=== PATIENT | female | born 1945 | race Caucasian/White ===

== ENCOUNTER → 2019-09-02 | Outpatient (CLI) | payer MEDICARE ==
[~2019-09-02] MED LIST: E-Z-GAS II EFFERVESCENT PACKET (SODIUM BICARB./CITRIC ACID/SIMETHICONE) As Ordered ONE; E-Z-HD 98% w/w 340GM SUSP BTL As Ordered ONE; E-Z-PAQUE 96% w/w SUSP 176GM BTL As Ordered ONE
--- NOTE | 2019-09-02 18:56 | REP ---
Examination Requested: Esophagram Barium Swallow Reason For Exam/Comment: Dysphasia Esophagram: The procedure was performed CARLOTTA Hill, under the direct supervision of Dr. Ricks. The images were reviewed with Dr. Ricks. A single PA chest x-ray is submitted as a transformer repairer film. The superior mediastinal structures are midline. The heart size is within normal limits. The lungs are clear. Liquid barium and gas producing granules were given in the erect position as well as liquid barium in the prone oblique position, in order to perform a double contrast esophagram examination. Oral and pharyngeal stages of the examination were unremarkable. However tertiary contractions were visualized throughout the exam. Esophageal transport is efficient and there is no esophagitis, stricture, or mucosal ring noted. There is no hiatal hernia noted. Gastroesophageal reflux was not visualized throughout the course of the exam. Impression: 1. Tertiary contractions visualized throughout the exam. 0.8 minutes of fluoroscopy time was utilized for this procedure. Some fluoroscopic images are performed with last image hold technology. These images require no additional radiation. Reviewed by CARLOTTA Keen 09/02/2019 05:39 P Electronically Signed by Cj Ricks MD 09/02/2019 06:48 P
== END ==
LOC: M RAD 08:33
PROVIDERS: ATTEND Internal Medicine Gastroenterology
DX: R13.10 Dysphagia, unspecified (principal)

== ENCOUNTER 2019-11-01 11:54 | Day surgery (SDC) | payer MEDICARE ==
[~2019-11-01] VITALS: Ht 162.6 cm; Wt 113.4 kg
[~2019-11-01 11:54] MED LIST changes: +ATEN50TA2 PO; -E-Z-GAS II EFFERVESCENT PACKET (SODIUM BICARB./CITRIC ACID/SIMETHICONE) As Ordered ONE; -E-Z-HD 98% w/w 340GM SUSP BTL As Ordered ONE; -E-Z-PAQUE 96% w/w SUSP 176GM BTL As Ordered ONE; +GABA600T4 PO; +HYDR-3910 PO; +KLOR20TA42 PO; +LIDOCAINE 2% INJ 100 MG/5 ML SDV (FOR ANES.) As Ordered ONE; +LOSA25TA14 PO; +LOVA20TA2 PO; +MELO15TA28 PO; +METF500T13 PO; +MYRB50TA PO; +NS 1,000 ML IV ONE; +TOLT4CAP3 PO; +propofoL 200 MG/20 ML VIAL As Ordered ONE
[2019-11-01] MEDS ORDERED: MIDAZOLAM INJ 2 MG/2 ML VIAL (J2250) As Ordered ONE (13:55)
[2019-11-01] MEDS ORDERED: fentaNYL 100 MCG/2 ML INJECTION (J3010) As Ordered ONE (13:56)
[2019-11-01] MEDS ORDERED: ACETYLCYSTEINE 20% 30 ML VIAL As Ordered ONE (14:11)
[2019-11-01] MEDS ORDERED: ESMOLOL INJ 100MG/10ML VIAL As Ordered ONE (14:11)
--- NOTE | 2019-11-01 14:18 | ROOR ---
Patient Name: Malinda Rajan Procedure Date: 11/01/2019 1:57 PM Date of : 1945 Age: 74 Room: [facility] Gender: Female Note Status: Finalized Procedure: Upper GI endoscopy Indications: Dysphagia Providers: David HERNANDEZ MD Referring MD: Norma Contreras MD Requesting Provider: Medicines: Fentanyl 100 micrograms IV, Midazolam 2 mg IV, Cetacaine spray, See the Anesthesia note for documentation of the administered medications Complications: No immediate complications. Procedure: Pre-Anesthesia Assessment: - The heart rate, respiratory rate, oxygen saturations, blood pressure, adequacy of pulmonary ventilation, and response to care were monitored throughout the procedure. The Endoscope was introduced through the mouth, and advanced to the second part of duodenum. The upper GI endoscopy was accomplished without difficulty. The patient tolerated the procedure well. Findings: Very small (insignificant) Hiatal Hernia. The examined esophagus was normal. No endoscopic abnormality was evident in the esophagus to explain the patient's complaint of dysphagia. It was decided, however, to proceed with dilation of the entire esophagus. The scope was withdrawn. Dilation was performed with a Rangel dilator with no resistance at 54 Fr. The entire examined stomach was normal. (large volume, compliant) The examined duodenum was normal. Impression: - Normal esophagus. No endoscopic esophageal abnormality to explain patient's dysphagia. Empiric dilation with 54 F Rangel dilator. - Normal stomach. Very small (insignificant) Hiatal Hernia. - Normal examined duodenum. - No specimens collected. Recommendation: - Observe patient's clinical course. - Follow an antireflux regimen. - Return to referring physician as previously scheduled. David Hernandez MD David HERNANDEZ MD 11/01/2019 2:18:07 PM Electronically signed by David HERNANDEZ MD Number of Addenda: 0 Note Initiated On: 11/01/2019 1:57 PM Estimated Blood Loss: Estimated blood loss: none.
[2019-11-01 14:50] VITALS: BP 180/98
== END 2019-11-01 15:05 | disposition home or self-care (01) ==
LOC: M OPP 11:54
PROVIDERS: ATTEND Internal Medicine Gastroenterology
DX: R13.10 Dysphagia, unspecified (principal); I25.2 Old myocardial infarction; E11.9 Type 2 diabetes mellitus without complications; Z79.84 Long term (current) use of oral hypoglycemic drugs; Z79.899 Other long term (current) drug therapy; Z88.0 Allergy status to penicillin; Z88.2 Allergy status to sulfonamides; Z88.8 Allergy status to other drugs, medicaments and biological substances; Z91.040 Latex allergy status
CPT/HCPCS: 43235; 43450; J2250; J3010

== ENCOUNTER → 2021-04-16 | Outpatient (CLI) | payer MEDICARE ==
[~2021-04-16] MED LIST changes: -LIDOCAINE 2% INJ 100 MG/5 ML SDV (FOR ANES.) As Ordered ONE; -NS 1,000 ML IV ONE; -propofoL 200 MG/20 ML VIAL As Ordered ONE
[2021-04-16 12:11] VITALS: BP 145/85
--- NOTE | 2021-04-16 12:36 | REP ---
INDICATION: R STEREO BX/BREAST MASS. COMPARISON: 03/06/2021. TECHNIQUE: ML, MLO and CC views right breast performed following stereotactic biopsy of a spiculated nodule inferomedially in the right breast. FINDINGS: Metallic clip is noted at the site of the spiculated nodule. There is post biopsy hematoma in that region. IMPRESSION: Metallic clip is seen in the region of the spiculated nodule inferomedially in the right breast status post stereotactic biopsy. RECOMMENDATION: Correlate with pathology results. <Electronically signed by Kirt Umanzor > 04/16/21 [id number]
--- NOTE | 2021-04-16 17:20 | REP ---
INDICATION: R STEREO BX/BREAST MASS. COMPARISON: None. TECHNIQUE: This procedure is performed by Aimee Thomas [facility], under the direct supervision of Dr. Umanzor. The risks and benefits of the procedure were explained to the patient and informed consent was obtained both verbally and written. Directly prior to the start of the procedure, a formal timeout was done in the procedure room. The inferior to superior cranial caudal approach was utilized on the prone table. The right breast nodule was localized using mammographic guidance. The skin was prepped and draped in a sterile fashion. Three ml of buffered lidocaine was used as a local anesthetic. FINDINGS: A 12 gauge vacuum assisted mammotome biopsy device was inserted and advanced into the breast, it was then realized that the lesion was too close to the skin surface for a biopsy to be safely done without harming the skin itself. The machine was repositioned into the lateral medial approach, and the right breast nodule was again localized using mammographic guidance. The skin was prepped and draped in a sterile fashion and another 3 mL of buffered lidocaine was used as a local anesthetic. A 12 gauge vacuum assisted mammotome biopsy device was inserted and advanced into the right breast lesion and 8 core biopsy samples were obtained. A shape 3 marker clip was placed at the biopsy site. The patient tolerated the procedure well and there were no immediate complications. After the appropriate amount of monitored convalescence the patient was discharged from the department. IMPRESSION: Stereotactic guided right breast biopsy with micro clip placement. <Electronically signed by Aimee Thomas > 04/16/21 1640 <Electronically signed by Kirt Umanzor > 04/16/21 [id number]
== END ==
LOC: M WHCPRO 06:20
PROVIDERS: ATTEND Obstetrics & Gynecology Obstetrics
DX: C50.911 Malignant neoplasm of unspecified site of right female breast (principal); N63.10 Unspecified lump in the right breast, unspecified quadrant

== ENCOUNTER → 2021-05-31 | Outpatient (CLI) | payer MEDICARE ==
[~2021-05-31] MED LIST changes: -KLOR20TA42 PO; +POTA-141 PO; +PROHANCE 279.3MG/ML 15ML VIAL As Ordered ONE; +PROHANCE 279.3MG/ML 5ML VIAL As Ordered ONE
--- NOTE | 2021-06-01 10:27 | REP ---
INDICATION: INVASIVE DUCTAL CARCINOMA RT BREAST. COMPARISON: Comparison mammography is reviewed from March 06, 2021. Patient underwent stereotactic needle biopsy and marker clip placement mammography on April 16, 2021. TECHNIQUE: Three Becky MRI imaging was performed with a dedicated breast coil. Axial, coronal, and sagittal T1 and T2 weighted scans were obtained with and without fat saturation in the usual fashion. The study includes dynamically acquired post gadolinium-enhanced imaging with image subtraction. Maximum intensity projection and multi planar reformation imaging is included as well. This study is interpreted with the aid of [employer], an FDA approved computer aided detection (CAD) software program, on a dedicated breast MRI workstation. The gadolinium enhancement dose is 20 mL of intravenous ProHance. FINDINGS: There is a mild amount of fibroglandular tissue bilaterally corresponding with the mammographic pattern. There is minimal background parenchymal enhancement. There is no evidence of axillary lymphadenopathy or significant breast cystic change. High-resolution pre and post-contrast T1 and T2 weighted scans show a bilobed small spiculated mass in the inferior aspect of the right breast adjacent to recently placed needle biopsy marker clip corresponding to the mammographically visible and biopsy-proven invasive ductal carcinoma. This measures 1.2 cm in greatest overall dimension. On axial images at this level the question is raised about contour deformity associated with this lesion. No other suspicious morphologic abnormality is seen in the right breast. There is no evidence of axillary lymphadenopathy on either side. No suspicious morphologic abnormality is observed in the left breast. There is a small subcentimeter cyst noted in the liver. IMPRESSION: BI-RADS category 6 bilateral breast MRI findings. Known right breast malignancy. No other suspicious breast MRI abnormality. <Electronically signed by Sami Ricks > 06/01/21 [id number]
== END ==
LOC: M RAD 14:44
PROVIDERS: ATTEND Surgery
DX: C50.911 Malignant neoplasm of unspecified site of right female breast (principal)
CPT/HCPCS: A9576; C8908

== ENCOUNTER → 2021-06-04 | Outpatient (CLI) | payer MEDICARE ==
[~2021-06-04] MED LIST changes: +ANAS1TAB2 PO; +CHLO500TA PO; +DICL20GE TP; +EXEM25TA PO; +LOSA50TA88 PO; +OMEP-218 PO; -PROHANCE 279.3MG/ML 15ML VIAL As Ordered ONE; -PROHANCE 279.3MG/ML 5ML VIAL As Ordered ONE; +ULTR50TA8 PO
--- NOTE | 2021-06-04 15:45 | REP ---
INDICATION: HEMATOMA ASSESS CLIP PLACEMENT. COMPARISON: Comparison mammography is from March 06, 2021 and April 16, 2021. TECHNIQUE: Craniocaudal and mediolateral oblique views of the right breast are obtained. This mammogram was interpreted with the aid of an FDA-approved computer-aided detection system. FINDINGS: The previously noted post biopsy hematoma has resolved. The stereotactically placed needle biopsy marker clip is again noted immediately adjacent to the spiculated lesion in the inferior and medial aspect of the right breast, approximately the 5 o'clock position. No new mammographic abnormality. IMPRESSION: Marker clip in good position. Previously noted hematoma has resolved. <Electronically signed by Sami Ricks > 06/04/21 [id number]
--- NOTE | 2021-06-04 16:19 | REP ---
INDICATION: HEMATOMA RIGHT BREAST ASSESS CLIP PLACMENT ENLARGED LYMPHNOD COMPARISON: None TECHNIQUE: Realtime grayscale ultrasound examination using curved array transducer. FINDINGS: Directed ultrasound examination of the right axilla demonstrates multiple lymph nodes measuring up to 4.3 x 1.0 x 1.7 cm. No discrete fluid collection/abscess or mass otherwise identified. IMPRESSION: Adenopathy. <Electronically signed by Pedro Dixon > 06/04/21 [id number]
== END ==
LOC: M WHC 14:51
PROVIDERS: ATTEND Surgery
DX: R59.0 Localized enlarged lymph nodes (principal); Z97.8 Presence of other specified devices; T14.8XXA Other injury of unspecified body region, initial encounter
CPT/HCPCS: 76882; 77065; G0279

== ENCOUNTER → 2021-07-06 | Outpatient (CLI) | payer MEDICARE ==
[~2021-07-06] MED LIST changes: -ANAS1TAB2 PO; -DICL20GE TP; -EXEM25TA PO; -LOSA50TA88 PO; -OMEP-218 PO; -ULTR50TA8 PO
== END ==
LOC: M LABSMTC 09:20
PROVIDERS: ATTEND Anesthesiology
DX: Z01.812 Encounter for preprocedural laboratory examination (principal); Z20.822 Contact with and (suspected) exposure to COVID-19

== ENCOUNTER 2021-07-11 06:35 | Day surgery (SDC) | payer MEDICARE ==
[~2021-07-11] VITALS: Ht 165.1 cm; Wt 104.5 kg
--- OUTSIDE RECORDS SUMMARY | 2021-07-11 06:42 | CCD ---
Author Author [facility] Organization [facility] Address Unknown Phone Unavailable Care Team Providers Care Transformer Maker Name Role Phone Jennifer Dang Unavailable PROBLEMS Type Condition ICD9-CM Code ZLS91-GZ Code Onset Dates Condition S tatus W/U Status Risk SNOMED Code Notes Problem Invasive ductal carcinoma of right breast C50.911 Active confirmed 852859844 Problem Malignant neoplasm of right female breast, unspecified estrogen receptor status, unspecified site of breast C50.911 Active confirmed [id number] Problem Infiltrating ductal carcinoma of right breast C50. 911 Active confirmed [id number] ALLERGIES Allergen (clinical drug ingredient) Drug/Non Drug Allergy do cumented on EMR Reaction Allergy Type Onset Date Status Sulfasalazine Sulfa Antibiotics HEADACHE Drug Allergy Ac tive Latex Latex REDNESS Drug Allergy Active Penicillin (For Allergies Use Only) CHILDHOOD Drug Allerg y Active nitroglycerin Nitroglycerin([facility] Code:[address]-93) Nausea/Vom iting Drug Allergy Active ENCOUNTERS from 1945 to 2021-07-04 Encounter Location Date Provider Diagnosis [facility] [address] [place] [address] [place] [address] Jul, Jennifer Dang IMMUNIZATIONS No Information SOCIAL HISTORY Sex Assigned At : Social History Observation Description Sex Assigned At Unknown REASON FOR REFERRAL No Information VITAL SIGNS No information MEDICATIONS Medication SIG (Take, Route, Frequency, Duration) Notes Start Da te End Date Status atenolol 100 100mg as directed oral Active Losartan Potassium-HCTZ 50-12.5 MG 1 tablet Orally Once a day Active Metformin as directed Active Lovastatin 1 tablet with a meal Orally Once a day for 30 day(s) Active Meloxicam 15 MG 1 tablet Orally Once a day Active Lidocaine-Prilocaine 2.5-2.5 % apply entire tube to ri ght nipple 2 hours prior to coming to hospital for surgery. Cover with plastic Externally once for 1 day May, Active Klor-Con 20 MEQ 1 packet with food Orally Once a day Active Black Cohosh as directed Orally Not- Taking NIFEdipine 1 capsule Orally Three times a day for 30 day(s) Not-Taking Acidophilus as directed Orally Not-T aking Myrbetriq 50 MG 1 tablet Orally Once a day Active PROCEDURES No Information RESULTS No Results REASON FOR VISIT CARDIAC CLEARANCE MEDICAL (GENERAL) HISTORY Type Description Date Medical History Hx of heart attack in 2000 Medical History Hx of stroke in 1999 and 2000 Medical History Chronic back and leg pain Medical History HTN Medical History DM BORDERLINE Medical History GERD Medical History Arthritis Surgical History BACK SURGERY Surgical History cataract removal Surgical History hysterectomy, unilateral oophorectomy Surgical History shoulder surgery - torn rotator cuff Surgical History breast reduction 1982 Hospitalization History SURGERY RELATED Hospitalization History STROKE 2001 Goals Section No Information Health Concerns No Information MEDICAL EQUIPMENT No Information MENTAL STATUS No Information FUNCTIONAL STATUS No Information ASSESSMENTS No Information PLAN OF TREATMENT Medication Medication Name Sig Start Date Stop Date Lidocaine-Prilocaine 2.5-2.5 % apply entire tube to ri ght nipple 2 hours prior to coming to hospital for surgery. Cover with plastic Externally once for 1 day May, Next Appt Details Provider Name:Jennifer Dang, 21-07-11 10:00:00 AM, [address] [place] [place] [phone], [place], [address] Provider Name:Jennifer Dang, 21-07-19 03:00:00 PM, [address] [place] [address] , [place], [address], Provider Name:Jennifer Dang, 20-08-13 10:00:00 AM, [address] [place] [address] , [place], [address], Insurance Providers Payer Name Payer Address Payer Phone Insured Name Patient Relati onship to Insured Coverage Start Date Coverage End Date [employer] OPTIONS [facility] CLAIM [facility] [address] [facility] [phone] MICHELLE LUCIO MEDICARE Part A and B [address] [facility] [phone] MICHELLE LUCIO self
--- OUTSIDE RECORDS SUMMARY | 2021-07-11 06:42 | CCD ---
Author Author [facility] Organization [facility] Address Unknown Phone Unavailable Care Team Providers Care Head Baggage Porter Name Role Phone Jennifer Dang Unavailable PROBLEMS Type Condition ICD9-CM Code EIT95-IE Code Onset Dates Condition S tatus W/U Status Risk SNOMED Code Notes Problem Invasive ductal carcinoma of right breast C50.911 Active confirmed [id number] Problem Malignant neoplasm of right female breast, unspecified estrogen receptor status, unspecified site of breast C50.911 Active confirmed [id number] Problem Infiltrating ductal carcinoma of right breast C50. 911 Active confirmed 852801502 ALLERGIES Allergen (clinical drug ingredient) Drug/Non Drug Allergy do cumented on EMR Reaction Allergy Type Onset Date Status Sulfa (for allergy use only) HEADACHE Non Drug Allergy Active nitroglycerin Nitroglycerin([facility] Code:[address]-05) Nausea/Vom iting Drug Allergy Active Penicillin (For Allergies Use Only) CHILDHOOD Drug Allerg y Active Latex (for allergy use only) REDNESS Non Drug Allergy Active ENCOUNTERS from 1945 to 2021-06-07 Encounter Location Date Provider Diagnosis [facility] [address] [place] [address] [place] [address] May, Jennifer Dang IMMUNIZATIONS No Information SOCIAL HISTORY [...] Information RESULTS No Results REASON FOR VISIT 06/25/21 SURG AUTH MEDICAL (GENERAL) HISTORY Type Description Date Medical [...] May, Next Appt Details Provider Name:Jennifer Dang, 20-06-26 10:00:00 AM, [address] [place] [address] [place], [address] Provider Name:Jennifer Dang, 21-07-10 09:00:00 AM, [address] [place] [phone], [place], [address], Insurance Providers Payer Name Payer Address Payer Phone Insured Name Patient Relati onship to Insured Coverage Start Date Coverage End Date [facility] OPTIONS [facility] CLAIM [facility] [address] [facility] [id number] MICHELLE LUCIO MEDICARE Part A and B [address] [facility] [phone] MICHELLE LUCIO self
--- OUTSIDE RECORDS SUMMARY | 2021-07-11 06:42 | CCD ---
Author Author [facility] Organization [facility] Address Unknown Phone Unavailable Care Team Providers Care Bottle Booth Attendant Name Role Phone MiltonMargarette sherwoodieszka Unavailable PROBLEMS Type Condition ICD9-CM Code CGX62-VQ Code Onset Dates Condition S tatus W/U Status Risk SNOMED Code Notes Problem Infiltrating ductal carcinoma of right breast C50. 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 confirmed 431717906 ALLERGIES Allergen (clinical drug ingredient) Drug/Non Drug Allergy do cumented on EMR Reaction Allergy Type Onset Date Status Sulfa (for allergy use only) HEADACHE Non Drug Allergy Active nitroglycerin Nitroglycerin([facility] Code:[address]-84) Nausea/Vom iting Drug Allergy Active Penicillin (For Allergies Use Only) CHILDHOOD Drug Allerg y Active Latex (for allergy use only) REDNESS Non Drug Allergy Active ENCOUNTERS from 1945 to 2021-06-06 Encounter Location Date Provider Diagnosis [facility] [address] [place] [address] [place] [address] May, Jennifer Dang Invasive ductal carcinoma of right breast C50.911 ; Hematoma T14.8XXA ; Enlarged lymph node R59.9 ; Family history of cancer Z80.9 ; Genetic testing Z13.79 and History of bilateral breast reduction surgery Z98.890 IMMUNIZATIONS No Information SOCIAL HISTORY Sex Assigned At : Social History Observation Description Sex Assigned At Unknown REASON FOR REFERRAL from 1945 to 2021-06-06 Reason New diagnosis of right breas t IDC, grade 2/DCIS grade 2, ER 90%, FL 80%, HER2 negative. Please evaluate for adjuvant treatment. Diagnosis 1 Invasive ductal carcinoma of right breast (C50.911) Referral Organization [facility] Referring Provider First Name [facility] Referring Provider Last Name [facility] Referring Provider Specialty Surgery Referred Provider Alejandrina Mancilla [place] Referred Provider Specialty Oncology Referral Priority Routine General Notes Allyn Cruz 05/23/2021 07:38:02 AM >REFERRAL FAXED Reason New diagnosis of right breas t IDC. Please evaluate for adjuvant treatment. Diagnosis 1 Invasive ductal carcinoma of right breast (C50.911) Referral Organization [facility] Referring Provider First Name [facility] Referring Provider Last Name [facility] Referring Provider Specialty Surgery Referred Provider Alex Leavitt Referred Provider Specialty Radiation Oncology Referral Priority Routine General Notes Allyn Cruz 05/23/2021 07:38:28 AM >REFERRAL FAXED VITAL SIGNS Weight 230 lbs May, Weight-kg 104.33 kg May, Height 5'6" in May, BMI 37.12 kg/m2 May, Heart Rate 52 /min May, Respiratory Rate 18 /min May, Temperature 97.2 degrees Fahrenheit May, Oximetry 95 May, Blood pressure systolic 150 mm Hg May, Blood pressure diastolic 86 mm Hg May, MEDICATIONS Medication SIG (Take, Route, Frequency, Duration) Notes Start Da te End Date Status atenolol 100 100mg as directed oral Active Lovastatin 1 tablet with a meal Orally Once a day for 30 day(s) Active Metformin as directed Active Myrbetriq 50 MG 1 tablet Orally Once a day Active Meloxicam 15 MG 1 tablet Orally Once a day Active Losartan Potassium-HCTZ 50-12.5 MG 1 tablet Orally Once a day Active Black Cohosh as directed Orally Not- Taking NIFEdipine 1 capsule Orally Three times a day for 30 day(s) Not-Taking Acidophilus as directed Orally Not-T aking Klor-Con 20 MEQ 1 packet with food Orally Once a day Active PROCEDURES No Information RESULTS Component Value Reference Range WWBC EXTREMITY NON VASC LIMITED Reviewed date:06/05/2021 17:53:21 Interpretation:AD Performing Lab:Replaced By [facility],[address]], ,[place] [address] Breast Bilat with and w/o Cont PLZ or SM C Reviewed date:06/05/2021 17:53:29 Interpretation:AD Performing Lab:Replaced By [facility],[address]], ,[place] [address] REASON FOR VISIT RIGHT Breast IDC MEDICAL (GENERAL) HISTORY Type Description Date Medical History Hx of heart attack in 2000 Medical History Hx of stroke in 1999 and 2000 Medical History Chronic back and leg pain Medical History HTN Medical History DM BORDERLINE Medical History GERD Medical History Arthritis Surgical History BACK SURGERY Surgical History cataract removal Surgical History hysterectomy, unilateral oophorectomy 19 75 Surgical History shoulder surgery - torn rotator cuff Surgical History breast reduction 1982 Hospitalization History SURGERY RELATED Hospitalization History STROKE 2001 Goals Section No Information Health Concerns No Information MEDICAL EQUIPMENT No Information MENTAL STATUS No Information FUNCTIONAL STATUS No Information ASSESSMENTS Encounter Date Diagnosis Assessment Notes Treatment Notes Treatm ent Clinical Notes May, Invasive ductal carcinoma of right breast (ICD-1 0 - C50.911) RIGHT BREAST CANCER (4:00 6 CFN) hematoma in place IDC GRADE 2 DCIS GRADE 2 ER 90% FL 80% HER2 negative cT1c (1.1 cm) cN0? (possibly reactive since large hematoma) cM0 ANATOMICAL STAGE 1 CLINICAL PROGNOSTIC STAGE: 1 GENETICS: declined PLAN: 1. Will get repeat Right diagnostic mammogram to asses if clip was displaced with postbx hematoma and get ultrasound of right axilla to assess palpable/ possibly reactive LN on 06/04 at 3PM 2. Will obtain MRI breast to delineate extent of disease. BMP will be orders to assess kidney function 3. Will defer surgical procedure planning until MRI results are available 4. Preop testing/ medical clearance will need to be obtained prior to surgery 5. Genetic testing, declined today, patient will let us know if wants to pursue it at later time 6. Oncotype DX postop if invasive cancer meets testing criteria and no NAC done 7. Referral to Medical Oncology 8. Referral to Radiation Oncology I reviewed the breast imaging and pathology results with Ms. Lucio and her family (daughter). We have reviewed the overall breast cancer evaluation and staging. Based on the current information Ms. Lucio was found to have right breast cancer - INVASIVE DUCTAL CARCINOMA, GRADE 2, ER 90% FL 80% and HER-2 negative. Her tumor measures on imaging about 1.1 cm which puts it in category T1c. It is hard to assess if the clip is in correct location as there was postbx large hematoma measuring 6 cm. We need to repeat R dx mammogram with EZEQUIEL to assess position of the clip. She does have one palpable axillary lymph node on exam, however, since patient had large hematoma post bx and since the cortex of the lymph node is only mildly enlarged at 3.2 cm, it is likely this is a reactive node. This node is also tender on palpation. I am planning to assess this lymph node with formal sonography of right axilla and MRI which will be ordered to delineate extent of disease. I have discussed various component of multidisciplinary approach to breast cancer which includes local treatments with surgery and radiation therapy and systemic treatments with antihormonal pill and possible chemotherapy. Regarding surgical component of the treatment, patient is a candidate for both breast conserving surgery and for mastectomy. I explained to her that, surgery carries risks and potential complications, most common of which are risk of bleeding, infection and injury to surrounding structures like skin, nipple, muscle, lung, nerves especially long thoracic nerve and thoracodorsal nerve. Postsurgical complications may include, but are not limited to, numbness of the skin and or nipple, scarring, bruising, hematomas, seromas, flap and/or nipple necrosis, lymphedema, nerve injury causing weakness in motor function of upper extremity or scapula, contour deformity, poor cosmetic outcomes and need for additional surgeries. Those risks were explained to the patient and she expressed understanding. We have discussed that with breast conserving surgery there is a higher risk of locoregional recurrence of tumor because there is more [place] breast tissue left behind. The percentage of locoregional recurrence is lower with mastectomy than with breast conserving surgery but it is not zero as it is impossible to remove 100% of all breast tissue cells during mastectomy. There is also 10-20% chance of positive margins with breast conserving surgery which will warrant additional surgery to clear those margins. I also explained that with breast conserving surgery she may need to have radiation therapy in order to assure equal survival between the breast conservative treatment and mastectomy. Radiation therapy after mastectomy will be warranted only if the final mastectomy margins are positive or if lymph nodes are positive. We have also discussed that if she chooses mastectomy, she is entitled to reconstruction if she wishes to have it. Reconstruction options will be discussed in details with plastic surgeon. I have explained to the patient that reconstruction is considered part of breast cancer treatment and is covered by insurance. I explained that in cases of invasive cancer, we pursue sentinel lymph node biopsy in fit patients in addition to removal of the tumor from the breast. I explained that this is done to test the very first lymph nodes draining the breast for presence of cancer. This will be done with radionucleotide injection and possibly with blue dye tracer. If the lymph nodes contain cancer, depending on what surgery was performed and how many lymph nodes are positive, additional surgery and/ or radiation therapy to axilla may be warranted as well. I informed patient about the Choosing Wisely Campaign which gives her an option, due to her age, not to pursue sentinel lymph node biopsy. We need to evaluate the palpable lymph node nature - this will likely be reactive since patient had large hematoma post bx. I am leaning toward pursuing SLNBx in this patient because of this palpable lymph node. I will send a prescription for the EMLA cream if needed at later time when evaluation is completed and we decide what to do with the right axilla. Regarding evaluation of contralateral breast, she had a screening mammogram done on 03/06/2021. This did not show any suspicious lesions in the contralateral breast. We are planning for MRI of the breast to delineate extent of disease. This will also evaluate contralateral breast. Since patient was diagnosed with breast cancer, she qualifies for genetic testing. I provided the genetic testing counseling -see the note below. At this time declined genetic testing. She will let me know if she changes her mind. I discussed with the patient and her family that Oncotype Dx is used to predict the probability of Hormone (+) Her2(-) cancer coming back. I explained that if the test comes back with a high score, chemotherapy may be considered. We will likely plan for Oncotype Dx postop. I will place referral for Medical Oncology. This appointment can be scheduled after surgery. I explained to the patient that she may need to follow up with radiation oncology if she wants to pursue breast conserving surgery or if lymph nodes or mastectomy margins are positive. I will place this referral as patient is leaning toward [facility]. She can schedule appointment with [facility] after surgery. Finally, I informed patient that an appointment with her primary care doctor will be scheduled for her before the surgery as we will need a surgical clearance, latest labs and imaging (CBC, BMP, CXR,EKG). All questions were answered. Patient and her family agree with the plan May, Hematoma (ICD-10 - T14.8XXA) Patient's post biopsy mammogram showed a 6cm hematoma. I would like to get a follow up right breast mammogram to assess the clip placement and hematoma May, Enlarged lymph node (ICD-10 - R59.9) On my clinical exam, there was a small palpable lymph node. This is likely a reactive lymph node due to large hematoma. It is also tender on palpation. I would like to get a formal ultrasound of the axilla to further evaluate. She can have this done at the same time as her mammogram on 06/04. All questions were answered, patient agrees with the plan May, Family history of cancer (ICD-10 - Z80.9) Patient participated in our Cancer screening program and she was not found to be at increased risk for cancer based on her family history. She does not qualify for genetic testing or high risk screening with MRI of the breast based on her family history. She IS eligible due to her diagnosis of right breast cancer May, Genetic testing (ICD-10 - Z13.79) Patient participated in our cancer screening program and she was identified as a person who may be eligible for genetic testing due to her diagnosis of right breast cancer. Possible outcomes of genetic testing were discussed with patient with emphasis on the fact that the majority of cancers are not related to germline mutations but are rather due to somatic mutations. I have explained that the genetic testing can come back as positive for specific pathological gene mutation, as negative, or as variant of unknown significance (VUS) which means that there is duration in the gene however we do not have enough information to determine the significance importance of this ulceration. I explained to the patient that we do not asked on VUS and treat them as negative until they are reclassified as pathologically significant mutation or benign alteration. We have discussed that regardless of test outcome patient cannot have her health insurance denied in the future. Patient declined genetic testing today. She would like to think about this at this time and will let us know what she decides at a later time May, History of bilateral breast reduction surgery (I CD-10 - Z98.890) Patient had a bilateral breast reduction in 1982. Thinks she went from 38D to a C May, Other Time spent face to face with the patient with over 50 % of time spent counseling the patient : 98 min (1 h 38min) Time spent reviewing the chart, requested consult information, radiology reports and imagin min TOTAL TIME SPENT FOR CARE OF THIS PATIENT AT THIS ENCOUNTER: 118 min I, Dr. Dang, reviewed the medical note prepared by the scribe and confirm the findings and the discussed plan. PLAN OF TREATMENT Treatment Notes Assessment Notes Clinical Notes Invasive ductal carcinoma of right breast RIGHT BREAST CANCER (4:00 6 CFN) hematoma in placeIDC GRADE 2 DCIS GRADE 2ER 90% FL 80% HER2 [id number] (1.1 cm) cN0? (possibly reactive since large hematoma) [id number] STAGE 1CLINICAL PROGNOSTIC STAGE: 1GENETICS: declinedPLAN:1. Will get repeat Right diagnostic mammogram to asses if clip was displaced with postbx hematoma and get ultrasound of right axilla to assess palpable/ possibly reactive LN on 06/04 at 3PM2. Will obtain MRI breast to delineate extent of disease. BMP will be orders to assess kidney function3. Will defer surgical procedure planning until MRI results are available4. Preop testing/ medical clearance will need to be obtained prior to surgery5. Genetic testing, declined today, patient will let us know if wants to pursue it at later time6. Oncotype DX postop if invasive cancer meets testing criteria and no NAC done7. Referral to Medical Oncology8. Referral to Radiation OncologyI reviewed the breast imaging and pathology results with Ms. Lucio and her family (daughter).We have reviewed the overall breast cancer evaluation and staging.Based on the current information Ms. Lucio was found to have right breast cancer - INVASIVE DUCTAL CARCINOMA, GRADE 2, ER 90% FL 80% and HER-2 negative. Her tumor measures on imaging about 1.1 cm which puts it in category T1c. It is hard to assess if the clip is in correct location as there was postbx large hematoma measuring 6 cm. We need to repeat R dx mammogram with EZEQUIEL to assess position of the clip.She does have one palpable axillary lymph node on exam, however, since patient had large hematoma post bx and since the cortex of the lymph node is only mildly enlarged at 3.2 cm, it is likely this is a reactive node. This node is also tender on palpation. I am planning to assess this lymph node with formal sonography of right axilla and MRI which will be ordered to delineate extent of disease.I have discussed various component of multidisciplinary approach to breast cancer which includes local treatments with surgery and radiation therapy and systemic treatments with antihormonal pill and possible chemotherapy.Regarding surgical component of the treatment, patient is a candidate for both breast conserving surgery and for mastectomy.I explained to her that, surgery carries risks and potential complications, most common of which are risk of bleeding, infection and injury to surrounding structures like skin, nipple, muscle, lung, nerves especially long thoracic nerve and thoracodorsal nerve. Postsurgical complications may include, but are not limited to, numbness of the skin and or nipple, scarring, bruising, hematomas, seromas, flap and/or nipple necrosis, lymphedema, nerve injury causing weakness in motor function of upper extremity or scapula, contour deformity, poor cosmetic outcomes and need for additional surgeries. Those risks were explained to the patient and she expressed understanding.We have discussed that with breast conserving surgery there is a higher risk of locoregional recurrence of tumor because there is more [place] breast tissue left behind. The percentage of locoregional recurrence is lower with mastectomy than with breast conserving surgery but it is not zero as it is impossible to remove 100% of all breast tissue cells during mastectomy. There is also 10-20% chance of positive margins with breast conserving surgery which will warrant additional surgery to clear those margins. I also explained that with breast conserving surgery she may need to have radiation therapy in order to assure equal survival between the breast conservative treatment and mastectomy. Radiation therapy after mastectomy will be warranted only if the final mastectomy margins are positive or if lymph nodes are positive.We have also discussed that if she chooses mastectomy, she is entitled to reconstruction if she wishes to have it. Reconstruction options will be discussed in details with plastic surgeon. I have explained to the patient that reconstruction is considered part of breast cancer treatment and is covered by insurance.I explained that in cases of invasive cancer, we pursue sentinel lymph node biopsy in fit patients in addition to removal of the tumor from the breast. I explained that this is done to test the very first lymph nodes draining the breast for presence of cancer. This will be done with radionucleotide injection and possibly with blue dye tracer. If the lymph nodes contain cancer, depending on what surgery was performed and how many lymph nodes are positive, additional surgery and/ or radiation therapy to axilla may be warranted as well. I informed patient about the Choosing Wisely Campaign which gives her an option, due to her age, not to pursue sentinel lymph node biopsy.We need to evaluate the palpable lymph node nature - this will likely be reactive since patient had large hematoma post bx. I am leaning toward pursuing SLNBx in this patient because of this palpable lymph node.I will send a prescription for the EMLA cream if needed at later time when evaluation is completed and we decid e what to do with the right axilla.Regarding evaluation of contralateral breast, she had a screening mammogram done on 03/06/2021. This did not show any suspicious lesions in the contralateral breast. We are planning for MRI of the breast to delineate extent of disease. This will also evaluate contralateral breast.Since patient was diagnosed with breast cancer, she qualifies for genetic testing. I provided the genetic testing counseling -see the note below. At this time declined genetic testing. She will let me know if she changes her mind.I discussed with the patient and her family that Oncotype Dx is used to predict the probability of Hormone (+) Her2(-) cancer coming back. I explained that if the test comes back with a high score, chemotherapy may be considered. We will likely plan for Oncotype Dx postop.I will place referral for Medical Oncology. This appointment can be scheduled after surgery.I explained to the patient that she may need to follow up with radiation oncology if she wants to pursue breast conserving surgery or if lymph nodes or mastectomy margins are positive. I will place this referral as patient is leaning toward [facility]. She can schedule appointment with [facility] after surgery.Finally, I informed patient that an appointment with her primary care doctor will be scheduled for her before the surgery as we will need a surgical clearance, latest labs and imaging (CBC, BMP, CXR,EKG).All questions were answered. Patient and her family agree with the plan Hematoma Patient's post biopsy mammog sonia showed a 6cm hematoma. I would like to get a follow up right breast mammogram to assess the clip placement and hematoma Enlarged lymph node On my clinical exam, there w as a small palpable lymph node. This is likely a reactive lymph node due to large hematoma. It is also tender on palpation. I would like to get a formal ultrasound of the axilla to further evaluate. She can have this done at the same time as her mammogram on 06/04.All questions were answered, patient agrees with the plan Family history of cancer Patient participated in our Cancer screening program and she was not found to be at increased risk for cancer based on her family history. She does not qualify for genetic testing or high risk screening with MRI of the breast based on her family history.She IS eligible due to her diagnosis of right breast cancer Genetic testing Patient participated in our cancer screening program and she was identified as a person who may be eligible for genetic testing due to her diagnosis of right breast cancer.Possible outcomes of genetic testing were discussed with patient with emphasis on the fact that the majority of cancers are not related to germline mutations but are rather due to somatic mutations.I have explained that the genetic testing can come back as positive for specific pathological gene mutation, as negative, or as variant of unknown significance (VUS) which means that there is duration in the gene however we do not have enough information to determine the significance importance of this ulceration. I explained to the patient that we do not asked on VUS and treat them as negative until they are reclassified as pathologically significant mutation or benign alteration.We have discussed that regardless of test outcome patient cannot have her health insurance denied in the future.Patient declined genetic testing today. She would like to think about this at this time and will let us know what she decides at a later time History of bilateral breast reduction surgery Patient had a bilateral breast reduction in 1982. Thinks she went from 38D to a C Treatment Notes Test Name Order Date [facility] Ezequiel Diagnostic Unilateral (Ultrasound if Indicat ed) (3D Mammo) 2021-05-22 Future Test Test Name Order Date Basic Metabolic Profile (BMP) [id number] Referrals Referral Date Details New diagnosis of right breas t IDC, grade 2/DCIS grade 2, ER 90%, FL 80%, HER2 negative. Please evaluate for adjuvant treatment., Zoya Naik [facility] New diagnosis of right breas t IDC. Please evaluate for adjuvant treatment., Alex Leavitt Insurance Providers Payer Name Payer Address Payer Phone Insured Name Patient Relati onship to Insured Coverage Start Date Coverage End Date MEDICARE Part A and B [address] [facility] [phone] MICHELLE LUCIO [facility] [employer] [facility] CLAIM DIV [address] [facility] [phone] MICHELLE LUCIO self
--- OUTSIDE RECORDS SUMMARY | 2021-07-11 06:42 | CCD | Continuity of Care Document ---
Author Author Malinda WESTFALL MD Organization Unknown Address [address] [place] [address], it e [address] [place] [address] Phone [phone] Care Team Providers Care Green Tire Inspector Name Role Phone Coby Contreras MD AUTM [phone] Problems Active Problems Provider Date Essential hypertension Chepe Alvarez MD Onset: 017 Pure hypercholesterolemia Chepe Alvarez MD Onset: 03/2017 Social History Type Date Description Comments Sex Unknown ETOH Use Occasionally consumes alcohol Tobacco Use Start: Unknown Denies Smoking Smoking Status Reviewed: 05/16/21 Denies Smoking Allergies, Adverse Reactions, Alerts Active Allergies Criticality Reaction | Severity Comments Date sulfa drugs Unable to assess criticality 08/07/2017 Nitroglycerin Unable to assess criticality 08/07/2017 Propofol Unable to assess criticality 09/25/2020 Latex Unable to assess criticality 09/25/2020 Medications Active Medications SIG Qnty Indications Ordering Provide r Date Klor-Con 20Meq Packet Unknown Tylenol Extra Strength 500mg Table ts 1-2 pills 2-3x/d as needed Unknown 0 Lovastatin 20mg Tablets take one tablet by mouth every night at bedtime Unknown Gabapentin 300mg Capsules 1 tab po qhs for one week, then one tab po bid for one week then one tab po tid M75.101 Unknown Losartan Potassium/Hydrochlorothiazide 50-12.5mg Tablets M75.101 Unknown Hydralazine HCL 25mg Tablets M75.101 Unknown Atenolol 50mg Tablets 1 by mouth every day M75.101 Unknown Metformin HCL 500mg Tablets take two tablets by mouth twice a day M75.101 Unknown Cyclobenzaprine HCL 10mg Tablets take one tablet by mouth three times a day as needed M75.101 Unkn own Aspir-[address] 1 by mouth every day M75.101 Unknown Detrol LA 4mg Caps ER 24HR 1 by mouth every day Unknown Myrbetriq 50mg Tablets ER 24HR 1 by mouth every day Unknown Immunizations Description No Information Available Vital Signs Date Vital Result Comment 09/21/2020 1:40pm Body Temperature 96.8 F 07/05/2019 10:12am Body Temperature 96.7 F Height 66.25 inches 5'6.25" Weight 255.00 lb BMI (Body Mass Index) 40.8 kg/m2 Results Description No Information Available Procedures Date Code Description Status 05/16/2021 34383 Office/Outpatient Established Lo w MDM 20-29 Min Completed 05/16/2021 58275 Inject/Drain Joint/Bursa Major C ompleted Medical Devices Description No Information Available Encounters Description No Information Available Assessments Date Code Description Provider 05/16/2021 M75.121 Complete rotator cuf f tear or rupture of right shoulder, not specified as traumatic Nay Westfall MD Plan of Treatment 05/16/2021 - Nay Westfall MD* M75.121 Complete rotator cuff tear or rupture of right shoulder, not specified as traumatic* Follow up:* f/u4-5 months right shoulder recheck Functional Status Description No Information Available Mental Status Description No Information Available Referrals Description No Information Available
--- OUTSIDE RECORDS SUMMARY | 2021-07-11 06:42 | CCD | Continuity of Care Document ---
Author Author Malinda RIOS RN Organization Unknown Address [address] [place] [address] Phone [phone] Care Team Providers Care Prep Manager Name Role Phone Coby Contreras MD AUTM [phone] Jennifer Dang DO AUTM Problems Active Problems Provider Date H/O: cardiovascular disease Onset: 12/13 Valvular endocarditis Onset: 12/13/2013 Essential hypertension Onset: 12/13/2013 Acute myocardial infarction of inferior wall Onset: 12/13/2013 Coronary arteriosclerosis Onset: 013 Peripheral venous insufficiency Karli Rios RN, [employer] [facility] Onset: 10/16/2015 Contact dermatitis Karli Rios RN, [employer] [facility] Onset: 10/16/2015 Hyperlipidemia Karli Rios RN, [employer] [facility] Onset: 10/16/2015 Dyspnea Karli Rios RN, [employer] Onset: 10/16/2015 Mitral valve disorder Karli Rios RN, [employer] Onset: 6 Stricture of esophagus Karli Rios RN, [employer] [facility] Onset: 10/16/19 16 Mixed hyperlipidemia Karli Rios RN, [employer] Onset: 05/20/2016 Electrocardiogram abnormal Karli Rios RN, [employer] Onset: 10/2020 Old myocardial infarction Darren Buckner MD Onset: 016 Dizziness and giddiness Karli Rios RN, [employer] Onset: 017 Carotid artery occlusion [facility] Onset: 05/21/20 17 Type 2 diabetes mellitus [facility] Onset: 06/03/20 18 Social History Type Date Description Comments Sex Unknown ETOH Use Denies alcohol use Tobacco Use Start: Unknown Patient has never smoked Recreational Drug Use Denies Drug Use Allergies and adverse reactions Active Allergies Criticality Reaction | Severity Comments Date Sulfa Unable to assess criticality 12/03/2012 Penicillin Unable to assess criticality 12/03/2012 Latex Unable to assess criticality 12/03/2012 Nitro Unable to assess criticality 12/03/2012 Medications Active Medications SIG Qnty Indications Ordering Provide r Date Atenolol 50mg Tablets q.d. Unknown 05/20/2015 Hydralazine HCL 25mg Tablets one tablet twice a day Unknown 05/20/2015 Lovastatin 20mg Tablets q.d. Unknown 05/20/2015 Aspirin Childrens 81mg Chewtabs 1 by mouth every day Unknown Klor-Con M20 20Meq Tablets ER 1 by mouth every day Unknown Myrbetriq 50mg Tablets ER 24HR 1 by mouth every day Unknown Meloxicam 15mg Tablets 1 by mouth every day Unknown Glucophage 500mg Tablets 1 by mouth every day Unknown Chlorzoxazone 500mg Tablets Take One Tablet By Mouth Three Times A Day as Needed For Muscle Spasms Unknown Bumex 1mg Tablets 1 po angela ly as needed. Unknown Losartan Potassium 50mg Tablets 1 by mouth every day Unknown Immunizations Description No Information Available Vital Signs Date Vital Result Comment 07/02/2021 11:18am BP Systolic 158 mmHg BP Diastolic 100 mmHg Heart Rate 70 /min Height 64 inches 5'4" Weight 220.00 lb BMI (Body Mass Index) 37.8 kg/m2 O2 % BldC Oximetry 96 % 07/13/2018 10:25am BP Systolic 150 mmHg BP Diastolic 98 mmHg Heart Rate 72 /min Height 65 inches 5'5" Weight 245.00 lb BMI (Body Mass Index) 40.8 kg/m2 Results Test Acquired Date Facility Test Result H/L Range Note Order 06/21/2021 [facility] Nuclear Read Only <pending> Procedures Date Code Description Status 07/02/2021 14815 Office/Outpatient Established [facility] MDM 40-54 Min Completed 06/21/2021 02650 Myocardial Perfusion Imaging Tomographic (Spect) Multiple Studies Completed Medical Devices Description No Information Available Encounters Type Date Location Provider Dx Diagnosis Office Visit 07/02/2021 1:45p [facility] Karli Rios RN, [facility] Z01.810 Encounter for preprocedural cardiovascular examination R94.31 Abnormal electrocardiogram [ ECG] [EKG] I10 Essential (primary) hyperten lina E11.9 Type 2 diabetes mellitus wit hout complications I65.23 Occlusion and stenosis of bi lateral carotid arteries I25.10 Athscl heart disease of [place] ve coronary artery w/o ang pctrs I34.0 Nonrheumatic mitral (valve) insufficiency E78.2 Mixed hyperlipidemia I87.2 Venous insufficiency (chroni c) (peripheral) K22.2 Esophageal obstruction Assessments Date Code Description Provider 07/02/2021 Z01.810 Encounter for preprocedural card iovascular examination Karli Rios RN, [facility] 07/02/2021 R94.31 Abnormal electrocardiogram [ECG] [EKG] Karli Rios RN, [facility] 07/02/2021 I10 Essential (primary) hypertension Karli Rios RN, [facility] 07/02/2021 E11.9 Type 2 diabetes mellitus without complications Karli Rios RN, [facility] 07/02/2021 I65.23 Occlusion and stenosis of bilate ral carotid arteries Karli Rios RN, [facility] 07/02/2021 I25.10 Atherosclerotic heart disease of [place] coronary artery with Karli Rios RN, [facility] 07/02/2021 I34.0 Nonrheumatic mitral (valve) insu fficiency Karli Rios RN, [facility] 07/02/2021 E78.2 Mixed hyperlipidemia Karli hanley RN, [facility] 07/02/2021 I87.2 Venous insufficiency (chronic) ( peripheral) Karli Rios RN, [facility] 07/02/2021 K22.2 Esophageal obstruction Karli hidalgo RN, [facility] 06/21/2021 Z01.810 Encounter for preprocedural card iovascular examination Darren Buckner MD 06/21/2021 R94.31 Abnormal electrocardiogram [ECG] [EKG] Darren Buckner MD Plan of Treatment Future Appointment(s):* 04/08/2022 11:15 am - [facility]/Device (415) at [facility] * 02/25/2022 1:30 pm - [facility] (315) at [facility] 07/02/2021 - Karli Rios RN, [employer] [facility]* Z01.810 Encounter for preprocedural cardiovascular examination * R94.31 Abnormal electrocardiogram [ECG] [EKG] * I10 Essential (primary) hypertension * E11.9 Type 2 diabetes mellitus without complications * I65.23 Occlusion and stenosis of bilateral carotid arteries * I25.10 Atherosclerotic heart disease of [place] coronary artery with * I34.0 Nonrheumatic mitral (valve) insufficiency * E78.2 Mixed hyperlipidemia * I87.2 Venous insufficiency (chronic) (peripheral) * K22.2 Esophageal obstruction* Recommendations:* At this time Malinda is 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 She has known history of coronary artery disease not requiring any intervention with a most recent nuclear stress test which was negative for ischemia with preserved LV function. She has mild valvular disease and mild carotid disease. She has a history of esophageal strictures with dilatation which is now stable. She has no acute cardiac events with blood pressure meds just recently being adj usted. She is a reasonable risk stratification to proceed with her surgery. No further testing is required at this time to proceed. She is asked to have a repeat echocardiogram in the next 6-8 months to update her valvular disease. She has no clinical symptoms of heart failure at this time. She is aggressively working at trying to lose some weight. She is also pending the possibility of requiring surgery for nerve impingement. This will take place after her mastectomy and treatment for her progressive cancer. Patient was seen in our [place] office and plan of care has been reviewed with Dr. Painter. Functional Status Description No Information Available Mental Status Description No Information Available Referrals Description No Information Available
--- OUTSIDE RECORDS SUMMARY | 2021-07-11 06:42 | CCD | Summary of Care ---
Author Author [facility] Address Unknown Phone Unavailable Care Team Providers Care Travel Cota Name Role Phone Bert Contreras MD PCP Encounter Details Care Team Description Date Type Department 04/19/2021 [facility] Anatomical Encounter Pathology at [place] [address] [place] [address] Allergies Not on Filedocumented as of this encounter (statuses as of 04/20/2021) Medications Not on filedocumented as of this encounter (statuses as of 04/20/2021) Active Problems Not on filedocumented as of this encounter (statuses as of 04/20/2021) Immunizations Name Administration Dates Next Due documented as of this encounter Social History Date Tobacco Use Types Packs/Day Years Used Never Assessed Sex Assigned at Date Recorded Not on file documented as of this encounter Last Filed Vital Signs Not on filedocumented in this encounter Plan of Treatment Date/Time Name Type Priority Associated Diag noses 04/19/2021 2:56 PM EDT Surgical pathology Pathology and Routine consult Cytology Order Schedule Name Type Priority Associated Diag noses Once for 1 Occurrences starting 04/19/20 until 04/19/2021 Surgical pathology Pathology and Routine consult Cytology Health Maintenance Due Date Last Done Comments DTaP,Tdap,and Td Vaccines 1952 (1 - Tdap) Osteoporosis Screening 2 2008 yr Pneumococcal Vaccine: 65+ 2008 Years (1 of 1 - PPSV23) MMR Vaccines (1 of 1 - 03/25/2016 Standard series) Varicella Vaccines (1 of 03/25/2016 02/26/2016 2 - 2-dose childhood series) Zoster Vaccines (2 of 3) 04/22/2016 02/26/2016 Influenza Vaccine 05/31/2021 05/14/2020, 05/24/2018, 06/22/2015, Additional history exists COVID-19 Vaccine Completed 11/29/2020, 11/01/2020 HIB Vaccines Aged Out No longer eligible based on patient's age to complete this topic Hepatitis A Vaccines Aged Out No longer eligibl e based on patient's age to complete this topic Hepatitis B Vaccines Aged Out No longer eligibl e based on patient's age to complete this topic IPV Vaccines Aged Out No longer eligible based on patient's age to complete this topic Pneumococcal Vaccine: Aged Out No longer eligib le based on patient's age to Pediatrics (0 to 5 Years) complete this topic and At-Risk Patients (6 to 64 Years) documented as of this encounter Results Not on filedocumented in this encounter
--- OUTSIDE RECORDS SUMMARY | 2021-07-11 06:42 | CCD | Continuity of Care Document ---
Author Author Malinda WESTFALL MD Organization Unknown Address [address] [place] [address], it e [address] [place] [phone] Phone [phone] Care Team Providers Care Consulting It Architect Name Role Phone Coby Contreras MD AUTM [phone] Problems Active Problems Provider Date Essential hypertension [...] kg/m2 Results Description No Information Available Procedures Description No Information Available Medical Devices Description No Information Available Encounters [...]
--- OUTSIDE RECORDS SUMMARY | 2021-07-11 06:44 | CCD ---
Author Author [facility] Organization [facility] Address Unknown Phone Unavailable Care Team Providers Care Mold Stacker Name Role Phone Diane, Norma Tenorio MD Unavailable Unavailable Pisaniello, Norma Tenorio MD Unavailable Unavailable Pisaniello, Norma Tenorio MD Unavailable Unavailable Pisaniello, Norma Tenorio MD Unavailable Unavailable Pisaniello, Norma Tenorio MD Unavailable Unavailable Pisaniello, Norma Tenorio MD Unavailable Unavailable Pisaniello, Norma Tenorio MD Unavailable Unavailable Pisaniello, Norma Tenorio MD Unavailable Unavailable Pisaniello, Norma Tenorio MD Unavailable Unavailable Pisaniello, Norma Tenorio MD Unavailable Unavailable Pisaniello, Norma Tenorio MD Unavailable Unavailable Pisaniello, Norma Tenorio MD Unavailable Unavailable Pisaniello, Norma Tenorio MD Unavailable Unavailable Pisaniello, Norma Tenorio MD Unavailable Unavailable Pisaniello, Norma Tenorio MD Unavailable Unavailable Pisaniello, Norma Tenorio MD Unavailable Unavailable Pisaniello, Norma Tenorio MD Unavailable Unavailable Pisaniello, Norma Tenorio MD Unavailable Unavailable Pisaniello, Norma Tenorio MD Unavailable Unavailable Pisaniello, Norma Tenorio MD Unavailable Unavailable Pisaniello, Norma Tenorio MD Unavailable Unavailable Pisaniello, Norma Tenorio MD Unavailable Unavailable Pisaniello, Norma Tenorio MD Unavailable Unavailable Pisaniello, Norma Tenorio MD Unavailable Unavailable Pisaniello, Norma Tenorio MD Unavailable Unavailable Pisaniello, Norma Tenorio MD Unavailable Unavailable Pisaniello, Norma Tenoiro MD Unavailable Unavailable Pisaniello, Norma Tenorio MD Unavailable Unavailable Pisaniello, Norma Tenorio MD Unavailable Unavailable Pisaniello, Norma Tenorio MD Unavailable Unavailable Pisaniello, Norma Tenorio MD Unavailable Unavailable Pisaniello, Norma Tenorio MD Unavailable Unavailable Pisaniello, Norma Tenorio MD Unavailable Unavailable Pisaniello, Norma Tenorio MD Unavailable Unavailable Pisaniello, Norma Tenorio MD Unavailable Unavailable Pisaniello, Norma Tenorio MD Unavailable Unavailable Pisaniello, Norma Tenorio MD Unavailable Unavailable Pisaniello, Norma Tenorio MD Unavailable Unavailable Pisaniello, Norma Tenorio MD Unavailable Unavailable Pisaniello, Norma Tenorio MD Unavailable Unavailable Pisaniello, Norma Tenorio MD Unavailable Unavailable Pisaniello, Norma Tenorio MD Unavailable Unavailable Pisaniello, Norma Tenorio MD Unavailable Unavailable Pisaniello, Norma Tenorio MD Unavailable Unavailable Pisaniello, Norma Tenorio MD Unavailable Unavailable Pisaniello, Norma Tenorio MD Unavailable Unavailable Pisaniello, Norma Tenorio MD Unavailable Unavailable Pisaniello, Norma Tenorio MD Unavailable Unavailable Pisaniello, Norma Tenorio MD Unavailable Unavailable Pisaniello, Norma Tenorio MD Unavailable Unavailable Pisaniello, Norma Tenorio MD Unavailable Unavailable Pisaniello, Norma Tenorio MD Unavailable Unavailable Pisaniello, Norma Tenorio MD Unavailable Unavailable Pisaniello, Norma Tenorio MD Unavailable Unavailable Pisaniello, Norma Tenorio MD Unavailable Unavailable Pisaniello, Norma Tenorio MD Unavailable Unavailable Pisaniello, Norma Tenorio MD Unavailable Unavailable Pisaniello, Norma Tenorio MD Unavailable Unavailable Pisaniello, Norma Tenorio MD Unavailable Unavailable Pisaniello, Norma Tenorio MD Unavailable Unavailable Pisaniello, Norma Tenorio MD Unavailable Unavailable Pisaniello, Norma Tenorio MD Unavailable Unavailable Pisaniello, Norma Tenorio MD Unavailable Unavailable Pisaniello, Norma Tenorio MD Unavailable Unavailable Pisaniello, Norma Tenorio MD Unavailable Unavailable Hamo, M Karli JAVA J2EE APPLICATION DEVELOPER Unavailable Unavailable Hamo, M Karli JAVA J2EE APPLICATION DEVELOPER Unavailable Unavailable Hamo, M Karli JAVA J2EE APPLICATION DEVELOPER Unavailable Unavailable Hamo, M Karli JAVA J2EE APPLICATION DEVELOPER Unavailable Unavailable Hamo, M Karli JAVA J2EE APPLICATION DEVELOPER Unavailable Unavailable Hamo, M Karli JAVA J2EE APPLICATION DEVELOPER Unavailable Unavailable Hamo, M Karli JAVA J2EE APPLICATION DEVELOPER Unavailable Unavailable Hamo, M Karli JAVA J2EE APPLICATION DEVELOPER Unavailable Unavailable Hamo, M Karli JAVA J2EE APPLICATION DEVELOPER Unavailable Unavailable Hamo, M Karli JAVA J2EE APPLICATION DEVELOPER Unavailable Unavailable Hamo, M Karli JAVA J2EE APPLICATION DEVELOPER Unavailable Unavailable Hamo, M Karli JAVA J2EE APPLICATION DEVELOPER Unavailable Unavailable Hamo, M Karli JAVA J2EE APPLICATION DEVELOPER Unavailable Unavailable Hamo, M Karli JAVA J2EE APPLICATION DEVELOPER Unavailable Unavailable Hamo, M Karli JAVA J2EE APPLICATION DEVELOPER Unavailable Unavailable Hamo, M Kalri JAVA J2EE APPLICATION DEVELOPER Unavailable Unavailable Hamo, M Karli JAVA J2EE APPLICATION DEVELOPER Unavailable Unavailable Hamo, M Karli JAVA J2EE APPLICATION DEVELOPER Unavailable Unavailable Hamo, M Karli JAVA J2EE APPLICATION DEVELOPER Unavailable Unavailable Doctor Provided, Family PHYS No Family Unavailable U navailable CAMPOLA Jr, N KAMLESH JAVA J2EE APPLICATION DEVELOPER Unavailable Unavailable CAMPOLA Jr, N KAMLESH JAVA J2EE APPLICATION DEVELOPER Unavailable Unavailable CAMPOLA Jr, N KAMLESH JAVA J2EE APPLICATION DEVELOPER Unavailable Unavailable CAMPOLA Jr, N KAMLESH JAVA J2EE APPLICATION DEVELOPER Unavailable Unavailable CAMPOLA Jr, N KAMLESH JAVA J2EE APPLICATION DEVELOPER Unavailable Unavailable CAMPOLA Jr, N KAMLESH JAVA J2EE APPLICATION DEVELOPER Unavailable Unavailable CAMPOLA Jr, N KAMLESH JAVA J2EE APPLICATION DEVELOPER Unavailable Unavailable CAMPOLA Jr, N KAMLESH JAVA J2EE APPLICATION DEVELOPER Unavailable Unavailable CAMPOLA Jr, N KAMLESH JAVA J2EE APPLICATION DEVELOPER Unavailable Unavailable CAMPOLA Jr, N KAMLESH JAVA J2EE APPLICATION DEVELOPER Unavailable Unavailable CAMPOLA Jr, N KAMLESH JAVA J2EE APPLICATION DEVELOPER Unavailable Unavailable CAMPOLA Jr, N KAMLESH JAVA J2EE APPLICATION DEVELOPER Unavailable Unavailable CAMPOLA Jr, N KAMLESH JAVA J2EE APPLICATION DEVELOPER Unavailable Unavailable CAMPOLA Jr, N KAMLESH JAVA J2EE APPLICATION DEVELOPER Unavailable Unavailable CAMPOLA Jr, N KAMLESH JAVA J2EE APPLICATION DEVELOPER Unavailable Unavailable Maurilio Westfall MD Unavailable Unavailable Maurilio Westfall MD Unavailable Unavailable Maurilio Westfall MD Unavailable Unavailable Maurilio Westfall MD Unavailable Unavailable Maurilio Westfall MD Unavailable Unavailable Maurilio Westfall MD Unavailable Unavailable Maurilio Westfall MD Unavailable Unavailable Maurilio Westfall MD Unavailable Unavailable Maurilio Westfall MD Unavailable Unavailable Maurilio Westfall MD Unavailable Unavailable Maurilio Westfall MD Unavailable Unavailable Maurilio Westfall MD Unavailable Unavailable Maurilio Westfall MD Unavailable Unavailable Maurilio Westfall MD Unavailable Unavailable Maurilio Westfall MD Unavailable Unavailable Maurilio Westfall MD Unavailable Unavailable Maurilio Westfall MD Unavailable Unavailable Maurilio Westfall MD Unavailable Unavailable Maurilio Westfall MD Unavailable Unavailable Maurilio Westfall MD Unavailable Unavailable Maurilio Westfall MD Unavailable Unavailable Vaneenenaam, Maurilio Pedraza MD Unavailable Unavailable Vaneenenaam, Maurilio Pedraza MD Unavailable Unavailable Vaneenenaam, Maurilio Pedraza MD Unavailable Unavailable Vaneenenaam, Maurilio Pedraza MD Unavailable Unavailable Vaneenenaam, Maurilio Pedraza MD Unavailable Unavailable Vaneenenaam, Maurilio Pedraza MD Unavailable Unavailable Vaneenenaam, Maurilio Pedraza MD Unavailable Unavailable Vaneenenaam, Maurilio Pedraza MD Unavailable Unavailable Vaneenenaam, Maurilio Pedraza MD Unavailable Unavailable Vaneenenaam, Maurilio Pedraza MD Unavailable Unavailable Vaneenenaam, Maurilio Pedraza MD Unavailable Unavailable Vaneenenaam, Maurilio Pedraza MD Unavailable Unavailable Vaneenenaam, Maurilio Pedraza MD Unavailable Unavailable Vaneenenaam, Maurilio Pedraza MD Unavailable Unavailable Vaneenenaam, Maurilio Pedraza MD Unavailable Unavailable Vaneenenaam, Maurilio Pedraza MD Unavailable Unavailable Vaneenenaam, Maurilio Pedraza MD Unavailable Unavailable Vaneenenaam, Maurilio Pedraza MD Unavailable Unavailable Vaneenenaam, Maurilio Pedraza MD Unavailable Unavailable Vaneenenaam, Maurilio Pedraza MD Unavailable Unavailable Vaneenmaria elenaam, Maurilio Pedraza MD Unavailable Unavailable Vaneenmaria elenaam, Maurilio Pedraza MD Unavailable Unavailable Vaneenenaam, Maurilio Pedraza MD Unavailable Unavailable Vaneenenaam, Maurilio Pedraza MD Unavailable Unavailable Vaneenenaam, Maurilio Pedraza MD Unavailable Unavailable DE LA CRUZ, AYJILLIAN MD Unavailable Unavailable DE LA CRUZ, DEJAN MD Unavailable Unavailable DE LA CRUZ, DEJAN MD Unavailable Unavailable DE LA CRUZ, AYJILLIAN BROOKS Unavailable Unavailable DE LA CRUZ, DEJAN BROOKS Unavailable Unavailable DE LA CRUZ, AYJILLIAN MD Unavailable Unavailable DE LA CRUZ, AYJILLIAN MD Unavailable Unavailable DE LA CRUZ, AYJILLIAN MD Unavailable Unavailable DE LA CRUZ, AYJILLIAN MD Unavailable Unavailable DE LA CRUZ, AYJILLIAN MD Unavailable Unavailable DE LA CRUZ, AYJILLIAN MD Unavailable Unavailable DE LA CRUZ, AYJILLIAN BROOKS Unavailable Unavailable DE LA CRUZ, AYJILLIAN MD Unavailable Unavailable DE LA CRUZ, AYJILLIAN MD Unavailable Unavailable DE LA CRUZ, AYJILLIAN MD Unavailable Unavailable DE LA CRUZ, AYJILLIAN MD Unavailable Unavailable DE LA CRUZ, AYJILLIAN MD Unavailable Unavailable DE LA CRUZ, AYJILLIAN MD Unavailable Unavailable DE LA CRUZ, AYJILLIAN MD Unavailable Unavailable DE L ACRUZ, AYJILLIAN MD Unavailable Unavailable DE LA CRUZ, AYJILLIAN BROOKS Unavailable Unavailable DE LA CRUZ, AYJILLIAN MD Unavailable Unavailable DE LA CRUZ, AYJILLIAN MD Unavailable Unavailable Sofi TORRES MD Unavailable Unavailable Sofi TORRES MD Unavailable Unavailable Sofi TORRES MD Unavailable Unavailable Sofi TORRES MD Unavailable Unavailable Sofi TORRES MD Unavailable Unavailable Sofi TORRES MD Unavailable Unavailable Sofi TORRES MD Unavailable Unavailable Sofi TORRES MD Unavailable Unavailable Sofi TORRES MD Unavailable Unavailable Sofi TORRES MD Unavailable Unavailable Sofi TORRES MD Unavailable Unavailable Sofi TORRES MD Unavailable Unavailable Sofi TORRES MD Unavailable Unavailable Sofi TORRES MD Unavailable Unavailable Sofi TORRES MD Unavailable Unavailable Sofi TORRES MD Unavailable Unavailable Sofi TORRES MD Unavailable Unavailable Sofi TORRES MD Unavailable Unavailable Sofi TORRES MD Unavailable Unavailable Sofi TORRES MD Unavailable Unavailable Sofi TORRES MD Unavailable Unavailable Sofi TORRES MD Unavailable Unavailable Sofi TORRES MD Unavailable Unavailable Sofi TORRES MD Unavailable Unavailable Sofi TORRES MD Unavailable Unavailable Sofi TORRES MD Unavailable Unavailable Sofi TORRES MD Unavailable Unavailable Sofi TORRES MD Unavailable Unavailable Sofi TORRES MD Unavailable Unavailable Sofi TORRES MD Unavailable Unavailable Sofi TORRES MD Unavailable Unavailable Sofi TORRES MD Unavailable Unavailable Sofi OTRRES MD Unavailable Unavailable Sofi TORRES MD Unavailable Unavailable Sofi TORRES MD Unavailable Unavailable Sofi TORRES MD Unavailable Unavailable Sofi TORRES MD Unavailable Unavailable Sofi TORRES MD Unavailable Unavailable Sofi TORRES MD Unavailable Unavailable Sofi TORRES MD Unavailable Unavailable Sofi TORRES MD Unavailable Unavailable Sofi TORRES MD Unavailable Unavailable Sofi TORRES MD Unavailable Unavailable Sofi TORRES MD Unavailable Unavailable Sofi TORRES MD Unavailable Unavailable Sofi TORRES MD Unavailable Unavailable Sofi TORRES MD Unavailable Unavailable Sofi TORRES MD Unavailable Unavailable Sofi TORRES MD Unavailable Unavailable Sofi TORRES MD Unavailable Unavailable Sofi TORRES MD Unavailable Unavailable Sofi TORRES MD Unavailable Unavailable DOMBROWSKA, K RAMY DO Unavailable Unavailable DOMBROWSKA, K RAMY DO Unavailable Unavailable DOMBROWSKA, K RAMY DO Unavailable Unavailable DOMBROWSKA, K RAMY DO Unavailable Unavailable DOMBROWSKA, K RAMY DO Unavailable Unavailable DOMBROWSKA, K RAMY DO Unavailable Unavailable DOMBROWSKA, K RAMY DO Unavailable Unavailable DOMBROWSKA, K RAMY DO Unavailable Unavailable DOMBROWSKA, K RAMY DO Unavailable Unavailable DOMBROWSKA, K RAMY DO Unavailable Unavailable DOMBROWSKA, K RAMY DO Unavailable Unavailable DOMBROWSKA, K RAMY DO Unavailable Unavailable DOMBROWSKA, K RAMY DO Unavailable Unavailable DOMBROWSKA, K RAMY DO Unavailable Unavailable DOMBROWSKA, K RAMY DO Unavailable Unavailable DOMBROWSKA, K RAMY DO Unavailable Unavailable DOMBROWSKA, K RAMY DO Unavailable Unavailable DOMBROWSKA, K RAMY DO Unavailable Unavailable DOMBROWSKA, K RAMY DO Unavailable Unavailable DOMBROWSKA, K RAMY DO Unavailable Unavailable DOMBROWSKA, K RAMY DO Unavailable Unavailable DOMBROWSKA, K RAMY DO Unavailable Unavailable DOMBROWSKA, K RAMY DO Unavailable Unavailable IZABEL, NNAMDI Unavailable Unavailable IZABEL, NNAMDI Unavailable Unavailable IZABEL, NNAMDI Unavailable Unavailable IZABEL, NNAMDI Unavailable Unavailable IZABEL, NNAMDI Unavailable Unavailable IZABEL, NNAMDI Unavailable Unavailable IZABEL, NNAMDI Unavailable Unavailable IZABEL, NNAMDI Unavailable Unavailable IZABEL, NNAMDI Unavailable Unavailable IZABEL, NNAMDI Unavailable Unavailable IZABEL, NNAMDI Unavailable Unavailable IZABEL, NNAMDI Unavailable Unavailable Pisaniello, Norma Tenorio MD Unavailable Unavailable Pisaniello, Norma Tenorio MD Unavailable Unavailable Pisaniello, Norma Tenorio MD Unavailable Unavailable Pisaniello, Norma Tenorio MD Unavailable Unavailable Pisaniello, Norma Tenorio MD Unavailable Unavailable Pisaniello, Norma Tenorio MD Unavailable Unavailable Pisaniello, Norma Tenorio MD Unavailable Unavailable Pisaniello, Norma Tenorio MD Unavailable Unavailable Pisaniello, Norma Tenorio MD Unavailable Unavailable Pisaniello, Norma Tenorio MD Unavailable Unavailable Pisaniello, Norma Tenorio MD Unavailable Unavailable Pisaniello, Norma Tenorio MD Unavailable Unavailable Pisaniello, Norma Tenorio MD Unavailable Unavailable Pisaniello, Norma Tenorio MD Unavailable Unavailable Pisaniello, Norma Tenorio MD Unavailable Unavailable Pisaniello, Norma Tenorio MD Unavailable Unavailable Pisaniello, Norma Tenorio MD Unavailable Unavailable Pisaniello, Norma Tenorio MD Unavailable Unavailable Pisaniello, Norma Tenorio MD Unavailable Unavailable Pisaniello, Norma Tenorio MD Unavailable Unavailable Pisaniello, Norma Tenorio MD Unavailable Unavailable Pisaniello, Norma Tenorio MD Unavailable Unavailable Pisaniello, Norma Tenorio MD Unavailable Unavailable Pisaniello, Norma Tenorio MD Unavailable Unavailable Pisaniello, Norma Tenorio MD Unavailable Unavailable Pisaniello, Norma Tenorio MD Unavailable Unavailable Pisaniello, Norma Tenorio MD Unavailable Unavailable Pisaniello, Norma Tenorio MD Unavailable Unavailable Pisaniello, Norma Tenorio MD Unavailable Unavailable Pisaniello, Norma Tenorio MD Unavailable Unavailable Pisaniello, Norma Tenorio MD Unavailable Unavailable Pisaniello, Norma Tenorio MD Unavailable Unavailable Pisaniello, Norma Tenorio MD Unavailable Unavailable Pisaniello, Norma Tenorio MD Unavailable Unavailable Pisaniello, Norma Tenorio MD Unavailable Unavailable Pisaniello, Norma Tenorio MD Unavailable Unavailable Pisaniello, Norma Tenorio MD Unavailable Unavailable Pisaniello, Norma Tenorio MD Unavailable Unavailable Pisaniello, Norma Tenorio MD Unavailable Unavailable Pisaniello, Norma Tenorio MD Unavailable Unavailable Pisaniello, Norma Tenorio MD Unavailable Unavailable Pisaniello, Norma Tenorio MD Unavailable Unavailable Pisaniello, Norma Tenorio MD Unavailable Unavailable Pisaniello, Norma Tenorio MD Unavailable Unavailable Pisaniello, Norma Tenorio MD Unavailable Unavailable Pisaniello, Norma Tenorio MD Unavailable Unavailable Pisaniello, Norma Tenorio MD Unavailable Unavailable Pisaniello, Norma Tenorio MD Unavailable Unavailable Pisaniello, Norma Tenorio MD Unavailable Unavailable Pisaniello, Norma Tenorio MD Unavailable Unavailable Pisaniello, Norma Tenorio MD Unavailable Unavailable Pisaniello, Norma Tenorio MD Unavailable Unavailable Pisaniello, Norma Tenorio MD Unavailable Unavailable Pisaniello, Norma Tenorio MD Unavailable Unavailable Pisaniello, Norma Tenorio MD Unavailable Unavailable Pisaniello, Norma Tenorio MD Unavailable Unavailable Pisaniello, Norma Tenorio MD Unavailable Unavailable Pisaniello, Norma Tenorio MD Unavailable Unavailable Pisaniello, Norma Tenorio MD Unavailable Unavailable Pisaniello, Norma Tenorio MD Unavailable Unavailable Pisaniello, Norma Tenorio MD Unavailable Unavailable Pisaniello, Norma Tenorio MD Unavailable Unavailable Pisaniello, Norma Tenorio MD Unavailable Unavailable Pisaniello, Norma Tenorio MD Unavailable Unavailable Pisaniello, Norma Tenorio MD Unavailable Unavailable Stapleton, D Yesenia SERVICE SUPERINTENDENT-C Unavailable Unavailable Stapleton, D Yesenia SERVICE SUPERINTENDENT-C Unavailable Unavailable Stapleton, D Yesenia SERVICE SUPERINTENDENT-C Unavailable Unavailable Stapleton, D Yesenia SERVICE SUPERINTENDENT-C Unavailable Unavailable Stapleton, D Yesenia SERVICE SUPERINTENDENT-C Unavailable Unavailable Stapleton, D Yesenia SERVICE SUPERINTENDENT-C Unavailable Unavailable Stapleton, D Yesenia SERVICE SUPERINTENDENT-C Unavailable Unavailable CAMPOLA Jr, N KAMLESH JAVA J2EE APPLICATION DEVELOPER Unavailable Unavailable CAMPOLA Jr, N KAMLESH JAVA J2EE APPLICATION DEVELOPER Unavailable Unavailable CAMPOLA Jr, N KAMLESH JAVA J2EE APPLICATION DEVELOPER Unavailable Unavailable CAMPOLA Jr, N KAMLESH JAVA J2EE APPLICATION DEVELOPER Unavailable Unavailable CAMPOLA Jr, N KAMLESH JAVA J2EE APPLICATION DEVELOPER Unavailable Unavailable CAMPOLA Jr, N KAMLESH JAVA J2EE APPLICATION DEVELOPER Unavailable Unavailable CAMPOLA Jr, N KAMLESH JAVA J2EE APPLICATION DEVELOPER Unavailable Unavailable CAMPOLA Jr, N KAMLESH JAVA J2EE APPLICATION DEVELOPER Unavailable Unavailable CAMPOLA Jr, N KAMLESH JAVA J2EE APPLICATION DEVELOPER Unavailable Unavailable CAMPOLA Jr, N KAMLESH JAVA J2EE APPLICATION DEVELOPER Unavailable Unavailable CAMPOLA Jr, N KAMLESH JAVA J2EE APPLICATION DEVELOPER Unavailable Unavailable CAMPOLA Jr, N KAMLESH JAVA J2EE APPLICATION DEVELOPER Unavailable Unavailable CAMPOLA Jr, N KAMLESH JAVA J2EE APPLICATION DEVELOPER Unavailable Unavailable CAMPOLA Jr, N KAMLESH JAVA J2EE APPLICATION DEVELOPER Unavailable Unavailable CAMPOLA Jr, N KAMLESH JAVA J2EE APPLICATION DEVELOPER Unavailable Unavailable Loreta MAYORGA MD Unavailable Unavailable Loreta MAYORGA MD Unavailable Unavailable Loreta MAYORGA MD Unavailable Unavailable Loreta MAYORGA MD Unavailable Unavailable Loreta MAYORGA MD Unavailable Unavailable Loreta MAYORGA MD Unavailable Unavailable Loreta MAYORGA MD Unavailable Unavailable Loreta MAYORGA MD Unavailable Unavailable Loreta MAYORGA MD Unavailable Unavailable Loreta MAYORGA MD Unavailable Unavailable Loreta MAYORGA MD Unavailable Unavailable Loreta MAYORGA MD Unavailable Unavailable Loreta MAYORGA MD Unavailable Unavailable Loreta MAYORGA MD Unavailable Unavailable Loreta MAYORGA MD Unavailable Unavailable Loreta MAYORGA MD Unavailable Unavailable Loreta MAYORGA MD Unavailable Unavailable Loreta MAYORGA MD Unavailable Unavailable Loreta MAYORGA MD Unavailable Unavailable Loreta MAYORGA MD Unavailable Unavailable Loreta MAYORGA MD Unavailable Unavailable Loreta MAYORGA MD Unavailable Unavailable Loreta MAYORGA MD Unavailable Unavailable Loreta MAYORGA MD Unavailable Unavailable Loreta MAYORGA MD Unavailable Unavailable Loreta MAYORGA MD Unavailable Unavailable Loreta MAYORGA MD Unavailable Unavailable Loreta MAYORGA MD Unavailable Unavailable Loreta MAYORGA MD Unavailable Unavailable Loreta MAYORGA MD Unavailable Unavailable Loreta MAYORGA MD Unavailable Unavailable Loreta MAYORGA MD Unavailable Unavailable Loreta MAYORGA MD Unavailable Unavailable Loreta MAYORGA MD Unavailable Unavailable Loreta MAYORGA MD Unavailable Unavailable Loreta MAYORGA MD Unavailable Unavailable Loreta MAYORGA MD Unavailable Unavailable Loreta MAYORGA MD Unavailable Unavailable Loreta MAYORGA MD Unavailable Unavailable Loreta MAYORGA MD Unavailable Unavailable Loreta MAYORGA MD Unavailable Unavailable Leuenberger, R Mio DO Unavailable Unavailable Leuenberger, R Mio DO Unavailable Unavailable Leuenberger, R Mio DO Unavailable Unavailable Leuenberger, R Mio DO Unavailable Unavailable Leuenberger, R Mio DO Unavailable Unavailable Leuenberger, R Mio DO Unavailable Unavailable Leuenberger, R Mio DO Unavailable Unavailable Leuenberger, R Mio DO Unavailable Unavailable Leuenberger, R Mio DO Unavailable Unavailable Leuenberger, R Mio DO Unavailable Unavailable Leuenberger, R Mio DO Unavailable Unavailable Leuenberger, R Mio DO Unavailable Unavailable Leuenberger, R Mio DO Unavailable Unavailable Leuenberger, R Mio DO Unavailable Unavailable Leuenberger, R Mio DO Unavailable Unavailable Leuenberger, R Mio DO Unavailable Unavailable Leuenberger, R Mio DO Unavailable Unavailable Leuenberger, R Mio DO Unavailable Unavailable Leuenberger, R Mio DO Unavailable Unavailable Leuenberger, R Mio DO Unavailable Unavailable Leuenberger, R Mio DO Unavailable Unavailable Leuenberger, R Mio DO Unavailable Unavailable Leuenberger, R Mio DO Unavailable Unavailable Leuenberger, R Mio DO Unavailable Unavailable Leuenberger, R Mio DO Unavailable Unavailable Leuenberger, R Mio DO Unavailable Unavailable Leuenberger, R iMo DO Unavailable Unavailable Leuenberger, R Mio DO Unavailable Unavailable Leuenberger, R Mio DO Unavailable Unavailable Leuenberger, R Mio DO Unavailable Unavailable Leuenberger, R Mio DO Unavailable Unavailable Leuenberger, R Mio DO Unavailable Unavailable Leuenberger, R Mio DO Unavailable Unavailable Leuenberger, R Mio DO Unavailable Unavailable Leuenberger, R Mio DO Unavailable Unavailable Leuenberger, R Mio DO Unavailable Unavailable Leuenberger, R Mio DO Unavailable Unavailable Leuenberger, R Mio DO Unavailable Unavailable Leuenberger, R Mio DO Unavailable Unavailable Leuenberger, R Mio DO Unavailable Unavailable Leuenberger, R Mio DO Unavailable Unavailable Leuenberger, R Mio DO Unavailable Unavailable Leuenberger, R Mio DO Unavailable Unavailable Leuenberger, R Mio DO Unavailable Unavailable Leuenberger, R Mio DO Unavailable Unavailable Leuenberger, R Mio DO Unavailable Unavailable Leuenberger, R Mio DO Unavailable Unavailable Leuenberger, R Mio DO Unavailable Unavailable Leuenberger, R Mio DO Unavailable Unavailable Leuenberger, R Mio DO Unavailable Unavailable Leuenberger, R Mio DO Unavailable Unavailable Leuenberger, R Mio DO Unavailable Unavailable Leuenberger, R Mio DO Unavailable Unavailable Leuenberger, R Mio DO Unavailable Unavailable Leuenberger, R Mio DO Unavailable Unavailable Leuenberger, R Mio DO Unavailable Unavailable Leuenberger, R Mio DO Unavailable Unavailable Leuenberger, R Mio DO Unavailable Unavailable Leuenberger, R Mio DO Unavailable Unavailable Leuenberger, R Mio DO Unavailable Unavailable Leuenberger, R Mio DO Unavailable Unavailable Leuenberger, R Mio DO Unavailable Unavailable Leuenberger, R Mio DO Unavailable Unavailable Leuenberger, R Mio DO Unavailable Unavailable Leuenberger, R Mio DO Unavailable Unavailable Leuenberger, R Mio DO Unavailable Unavailable Leuenberger, R Mio DO Unavailable Unavailable Leuenberger, R Mio DO Unavailable Unavailable Leuenberger, R Mio DO Unavailable Unavailable Leuenberger, R Mio DO Unavailable Unavailable Leuenberger, R Mio DO Unavailable Unavailable Leuenberger, R Mio DO Unavailable Unavailable Visingardi, C Caitlin PA Unavailable Unavailable Visingardi, C Caitlin PA Unavailable Unavailable Visingardi, C Caitlin PA Unavailable Unavailable Visingardi, C Caitlin PA Unavailable Unavailable Visingardi, C Caitlin PA Unavailable Unavailable Visingardi, C Caitlin PA Unavailable Unavailable Visingardi, C Caitlin PA Unavailable Unavailable Visingardi, C Caitlin PA Unavailable Unavailable Visingardi, C Caitlin PA Unavailable Unavailable Visingardi, C Caitlin PA Unavailable Unavailable Visingardi, C Caitlin PA Unavailable Unavailable Visingardi, C Caitlin PA Unavailable Unavailable Visingardi, C Caitlin PA Unavailable Unavailable Visingardi, C Caitlin PA Unavailable Unavailable Lockerbie, S Miriam SERVICE SUPERINTENDENT-C Unavailable Unavailable Lockerbie, S Miriam SERVICE SUPERINTENDENT-C Unavailable Unavailable Lockerbie, S Miriam SERVICE SUPERINTENDENT-C Unavailable Unavailable Lockerbie, S Miriam SERVICE SUPERINTENDENT-C Unavailable Unavailable Lockerbie, S Miriam SERVICE SUPERINTENDENT-C Unavailable Unavailable Lockerbie, S Miriam SERVICE SUPERINTENDENT-C Unavailable Unavailable Lockerbie, S Miriam SERVICE SUPERINTENDENT-C Unavailable Unavailable Lockerbie, S Miriam SERVICE SUPERINTENDENT-C Unavailable Unavailable Lockerbie, S Miriam SERVICE SUPERINTENDENT-C Unavailable Unavailable Lockerbie, S Miriam SERVICE SUPERINTENDENT-C Unavailable Unavailable Lockerbie, S Miriam SERVICE SUPERINTENDENT-C Unavailable Unavailable Lockerbie, S Miriam SERVICE SUPERINTENDENT-C Unavailable Unavailable Lockerbie, S Miriam SERVICE SUPERINTENDENT-C Unavailable Unavailable Lockerbie, S Miriam SERVICE SUPERINTENDENT-C Unavailable Unavailable Lockerbie, S Miriam SERVICE SUPERINTENDENT-C Unavailable Unavailable Lockerbie, S Miriam SERVICE SUPERINTENDENT-C Unavailable Unavailable Lockerbie, S Miriam SERVICE SUPERINTENDENT-C Unavailable Unavailable Lockerbie, S Miriam SERVICE SUPERINTENDENT-C Unavailable Unavailable Lockerbie, S Miriam SERVICE SUPERINTENDENT-C Unavailable Unavailable Lockerbie, S Miriam SERVICE SUPERINTENDENT-C Unavailable Unavailable Lockerbie, S Miriam SERVICE SUPERINTENDENT-C Unavailable Unavailable Lockerbie, S Miriam SERVICE SUPERINTENDENT-C Unavailable Unavailable Lockerbie, S Miriam SERVICE SUPERINTENDENT-C Unavailable Unavailable Lockerbie, S Miriam SERVICE SUPERINTENDENT-C Unavailable Unavailable Re-disclosure Warning The records that you are about to access may contain information from federally-assisted alcohol or drug abuse programs. If such information is present, then the following federally mandated warning applies: This information has been disclosed to you from records protected by federal confidentiality rules (42 CFR part 2). The federal rules prohibit you from making any further disclosure of this information unless further disclosure is expressly permitted by the written consent of the person to whom it pertains or as otherwise permitted by 42 CFR part 2. A general authorization for the release of medical or other information is NOT sufficient for this purpose. The Federal rules restrict any use of the information to criminally investigate or prosecute any alcohol or drug abuse patient.The records that you are about to access may contain highly sensitive health information, the redisclosure of which is protected by Article 27-F of the [facility] Public Health law. If you continue you may have access to information: Regarding HIV / AIDS; Provided by facilities licensed or operated by the [facility] Office of Mental Health; or Provided by the [facility] Office for People With Developmental Disabilities. If such information is present, then the following [facility] mandated warning applies: This information has been disclosed to you from confidential records which are protected by state law. State law prohibits you from making any further disclosure of this information without the specific written consent of the person to whom it pertains, or as otherwise permitted by law. Any unauthorized further disclosure in violation of state law may result in a fine or skilled nursing sentence or both. A general authorization for the release of medical or other information is NOT sufficient authorization for further disc losure. Allergies and Adverse Reactions Type Description Substance Reaction Status Data Source(s ) Propensity to adverse reactions NO ALLERGIES ON FILE NO ALLERGIES ON FILE [facility] Family History Family Member Name Family Member Gender Family Member Status Date o f Status Description Data Source(s) Unknown Condition [facility] Unknown Condition [facility] Unknown Condition [facility] Unknown Condition [facility] Unknown Condition [facility] Unknown Condition [facility] Unknown Condition [facility] Unknown Condition [facility] Unknown Condition [facility] Unknown Condition [facility] Unknown Condition [facility] Unknown Condition [facility] Unknown Male Problem [facility]) Unknown Male Problem [facility]) Unknown Female Problem [facility] ([facility] Unknown Female Problem [facility] ([facility] Unknown Female Problem [facility] ([facility] Unknown Female Encounters Encounter Providers Location Date Indications Data Source(s ) Outpatient Attender: Karli Rios NP [facility] 07/02 01:45:00 PM EDT [facility] ([facility]) Unknown [address] [facility] [place] [address] 07/01/2021 12:00:00 AM EDT eCW1 ([facility]) Outpatient Attender: Coby Marcelo MD 06/21/2021 07:21:00 AM EDT I25.10, PREOP, ABN EKG [facility] I25.10, PREOP, ABN EKG CLINIC Attender: DEJAN EDWARDSB.ES-SDB.OR 06/20/2021 12:00:0 0 AM EDT [facility] CLINIC GRACEB.ES-SDB. 06/19/2021 08:08:12 AM EDT [facility] CLINIC Referrer: FLAKO MARCELOES-SDB.RAD 06/14/2021 12: 00:00 AM EDT [facility] CLINIC Attender: FLAKO HARRIS.ES-SDB.PM 06/14/2021 12:0 0:00 AM EDT [facility] Unknown [address] [facility] [address] 06/14/2021 12:00:00 AM EDT eCW1 ([facility]) Outpatient Attender: Coby Marcelo MDReferrer: Coby kincaid MD 06/13/2021 01:47:00 PM EDT [facility] Outpatient Attender: Coby Marcelo MD 06/11/2021 02:17 :00 PM EDT PREOP [facility] PREOP Unknown [address] [facility] [address] 06/07/2021 12:00:00 AM EDT eCW1 ([facility]) Outpatient Attender: Mio Mcduffie DOReferrer: Coby reeves MD 06/05/2021 02:37:00 PM EDT - 06/05/2021 02:39:00 PM EDT [facility] CLINIC Referrer: FLAKO HARRIS.ES-SDB.RAD 05/30/2021 12: 00:00 AM EDT [facility] CLINIC Attender: DEJAN DE LA CRUZ MDReferrer: Coby HARRIS.ES-SDB.OR 05/30/2021 12:00:00 AM EDT - 05/30/2021 12:26:25 PM EDT [facility] CLINIC Attender: FLAKO MARCEOLES-SDB.PM 05/30/2021 12:0 0:00 AM EDT [facility] Outpatient Attender: RAMY JAVIERBOWEN 021 09:42:00 AM EDT 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,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,E66.9,E78.2,I10 [facility] 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,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,E66.9,E78.2,I10 Outpatient [address] [facility], [facility] [address] 05/22/2021 12:00:00 AM EDT eCW1 ([facility]) CLINIC Attender: FLAKO MARCELOES-KIMBERLY.PM 05/15/2021 12:0 0:00 AM EDT [facility] CLINIC Referrer: FLAKO FRANCE.RAD 05/10/2021 12: 00:00 AM EDT [facility] CLINIC Attender: FLAKO FRANZ-KIMBERLY.PM 05/10/2021 12:0 0:00 AM EDT [facility] Outpatient Attender: Coby Marcelo MDReferrer: Coby kincaid MD 05/09/2021 08:56:00 AM EDT - 05/09/2021 09:56:00 AM EDT [facility] CLINIC Attender: NNAMDI FRANZ-KIMBERLY.OR 05/02/2021 12:00:00 AM EDT [facility] Outpatient Admitter: Coby Marcelo MDReferrer: Coby kincaid MD 04/19/2021 12:00:00 AM EDT Malignant neoplasm of unspecified site o f left female [facility] Malignant neoplasm of unspecified site o f left female breast CLINIC Referrer: FLAKO FRANCE.RAD 04/18/2021 12: 00:00 AM EDT [facility] CLINIC Attender: FLAKO FRANZ-KIMBERLY.PM 04/18/2021 12:0 0:00 AM EDT [facility] Outpatient Attender: Coby Marcleo MDReferrer: Coby kincaid MD 04/09/2021 09:48:00 AM EDT - 04/09/2021 11:03:00 AM EDT [facility] Outpatient Attender: Yesenia Stapleton SERVICE SUPERINTENDENTLucy Main Office 04/04/2021 03:00:00 PM EDT [facility] ([facility] CLINIC Attender: NNAMDI PAIZReferrer: FLAKO MARCELOES-SDB.OR 03/29/2021 12:00:00 AM EDT [facility] CL[facility] Referrer: FLAKO MARCELOES-SDB.RAD 03/26/2021 12: 00:00 AM EDT [facility] CLINIC Attender: FLAKO MARCELOES-SDB.PM 03/26/2021 12:0 0:00 AM EDT [facility] Outpatient Attender: Coby Marcelo MD 03/15/2021 09:53:00 AM EDT RIGHT BREAST MASS PER RAD [facility] RIGHT BREAST MASS PER RAD CLINIC Attender: FLAKO MARCELOES-SDB.PM 03/14/2021 12:0 0:00 AM EDT [facility] Outpatient Attender: Coby Marcelo MD 03/06/2021 05:00:00 PM EDT SCREENING [facility] SCREENING Outpatient Attender: KAMLESH MALIN Jr 03/06/2021 03: 22:00 PM EDT FAILED BACK SURGICAL SYNDROME; SCREENING [facility] FAILED BACK SURGICAL SYNDROME; SCREENING CLINIC Referrer: KAMLESH MARCELOES-SDMarci.RAD 02/13/2021 02:01 :30 PM EDT [facility] OBSERVATION Attender: KAMLESH HARRIS.ES 02/13 01:21:00 PM EDT - 02/13/2021 01:54:00 PM [facility]: Coby Marcelo MD 02/07/2021 11:14:00 AM EDT E11.69,E66.9 [facility] E11.69,E66.9 Outpatient Attender: Coby Marcelo MDReferrer: No Famil y Doctor Provided 02/07/2021 10:00:00 AM EDT - 02/07/2021 11:13:00 AM EDT [facility] Outpatient Attender: Caitlin Shelley/ Yehuda.M.P. U cliveogcandida 01/22/2021 11:00:00 AM EDT [facility] ([facility]IN[facility] Referrer: FLAKO HARRIS.ES-SDB.RAD 01/11/2021 12: 00:00 AM EDT [facility] CLINIC Attender: FLAKO HARRIS.ES-SDB.PM 01/11/2021 12:0 0:00 AM EDT [facility] Outpatient Attender: Miriam Heard [facility]- Main Office 01/09/2021 11:00:00 AM EDT [facility] Outpatient Attender: Yesenia Stapleton [facility] Main Office 01/02/2021 11:45:00 AM EDT [facility] CLINIC Attender: KAMLESH HARRIS.ES-SDB.PM 01/01/2021 12:00: 00 AM EDT [facility] Outpatient Attender: MARLA Shelley/ Yehuda.MMeraryP. Urology 12/18/2020 10:00:00 AM EDT [facility] ([facility] Outpatient Attender: Yesenia Stapleton [facility] Main Office 12/11/2020 12:30:00 PM EDT [facility] Outpatient Attender: Yesenia Stapleton [facility] Main Office 12/04/2020 12:30:00 PM EDT [facility] Outpatient Attender: Yesenia Stapleton [facility] Main Office 11/22/2020 10:00:00 AM EDT [facility] Outpatient Attender: Caitlin Shelley/ Yehuda.M.P. U rology 11/21/2020 01:45:00 PM EDT [facility] ([facility]) Outpatient Attender: Maurilio Westfall MD Physical Therap y 10/29/2020 10:00:00 AM EST [facility] ([facility]) CLINIC Attender: KAMLESH MARCELOES-SDB.PM 10/04/2020 12:00: 00 AM EST [facility] Outpatient Attender: Maurilio Westfall MD Physical Therap y 09/21/2020 01:00:00 PM EST [facility] ([facility]) CLINIC Referrer: FLAKO MARCELOES-SDB.RAD 09/14/2020 12: 00:00 AM EST [facility] CLINIC Attender: FLAKO MARCELOES-SDB.PM 09/14/2020 12:0 0:00 AM EST [facility] CLINIC GRACEBMeraryES-SDB. 09/10/2020 02:08:41 PM EST [facility] CLINIC Referrer: FLAKO MARCELOES-SDB.RAD 09/07/2020 12: 00:00 AM EST [facility] CLINIC Attender: FLAKO MARCELOES-SDB.PM 09/07/2020 12:0 0:00 AM EST [facility] CL[facility] Attender: KAMLESH MARCELOES-SDB.PM 08/14/2020 12:00: 00 AM EST [facility] Outpatient Attender: Coby Marcelo MD 08/09/2020 02:20:00 PM EST E11.42,E11.69,E66.9 [facility] E11.42,E11.69,E66.9 Outpatient Attender: Coby Marcelo MDReferrer: Coby kincaid MD 08/09/2020 12:42:00 PM EST - 08/09/2020 02:23:00 PM EST [facility] Outpatient Attender: Caitlin Shelley/ Skip gann 05/22/2020 03:00:00 PM EDT [facility] ([facility] CLINIC Attender: KAMLESH EDWARDSB.ES-SDB.PM 05/22/2020 12:00: 00 AM EDT [facility] Outpatient Attender: Coby Marcelo MD 05/14/2020 03:06 :00 PM EDT E11.42 [facility] E11.42 Outpatient Attender: Coby Marcelo MDReferrer: Coby kincaid MD 05/14/2020 11:10:00 AM EDT - 05/14/2020 12:12:00 PM EDT [facility] Immunizations Vaccine Date Status Description Data Source(s) COVID-19 Moderna 11/29/2020 12:00:00 AM EDT completed [facility] COVID-19 VACCINE Moderna 11/29/2020 12:00:00 AM EDT completed [facility] Vaccine Series Complete: YESThis Data wa s Submitted to [facility] Via [employer]. COVID-19 Moderna 11/01/2020 12:00:00 AM EST completed [facility] COVID-19 VACCINE Moderna 11/01/2020 12:00:00 AM EST completed [facility] Vaccine Series Complete: NOThis Data was Submitted to [facility] [employer]. Medications Medication Brand Name Start Date Product Form Dose Route Admi nistrative Instructions Pharmacy Instructions Status Indications Reaction Description Data Source(s) 50 mg 06/21/2021 12:00:00 AM EDT tablet 90 TAKE ONE TABLET BY MOUTH EVERY DAY TAKE ONE TABLET BY MOUTH EVERY DAY SOLD: 06/25/2021 [facility] 1 % 06/13/2021 12:00:00 AM EDT gel 100 APPLY TOPICALLY TO SINGLE ELBOW, WRIST, HAND FOUR TIMES A DAY APPLY TOPICALLY TO SINGLE ELBOW, WRIST, HAND FOUR TIMES A DAY SOLD: 06/17/2021 [facility] Lidocaine 25 MG/ML / Prilocaine 25 MG/ML Topical Cream 2.5-2.5 % LIDOCAINE/PRILOCAINE 06/07/2021 12:00:00 AM EDT cream 5 APPLY ENTIRE TUBE TO RIGHT NIPPLE 2 HOURS PRIOR TO COMING TO HOSPITAL FOR SURGERY, COVER WITH PLASTIC APPLY ENTIRE TUBE TO RIGHT NIPPLE 2 HOUR S PRIOR TO COMING TO HOSPITAL FOR SURGERY, COVER WITH PLASTIC SOLD: 06/08/2021 [facility] Lidocaine 25 MG/ML / Prilocaine 25 MG/ML Topical Cream Lidocaine-Prilocaine 2.5- 2.5 % Lidocaine-Prilocaine 2.5-2.5 % 06/06/2021 12:00:00 AM EDT active Lidocaine-Prilocaine 2.5-2.5 % e CW1 ([facility]) Lidocaine 25 MG/ML / Prilocaine 25 MG/ML Topical Cream Lidocaine-Prilocaine 2.5- 2.5 % Lidocaine-Prilocaine 2.5-2.5 % 06/06/2021 12:00:00 AM EDT active Lidocaine-Prilocaine 2.5-2.5 % e CW1 ([facility]) Lidocaine 25 MG/ML / Prilocaine 25 MG/ML Topical Cream Lidocaine-Prilocaine 2.5- 2.5 % Lidocaine-Prilocaine 2.5-2.5 % 06/06/2021 12:00:00 AM EDT active Lidocaine-Prilocaine 2.5-2.5 % e CW1 ([facility]) 75 mg 06/03/2021 12:00:00 AM EDT capsule 60 TAKE ONE CAPSULE BY MOUTH TWICE A DAY MAXIMUM DAILY DOSE = 150MG TAKE ONE CAPSULE BY MOUTH TWICE A DAY MA XIMUM DAILY DOSE = 150MG SOLD: 07/06/2021 [facility] 75 mg 06/03/2021 12:00:00 AM EDT capsule 60 TAKE ONE CAPSULE BY MOUTH TWICE A DAY MAXIMUM DAILY DOSE = 150MG TAKE ONE CAPSULE BY MOUTH TWICE A DAY MA XIMUM DAILY DOSE = 150MG SOLD: 06/04/2021 [facility] pregabalin 75 MG Oral Capsule pregabalin (LYRICA) 75 M G capsule pregabalin (LYRICA) 75 MG capsule 05/30/2021 12:00:00 AM EDT 75 mg Oral active Take 1 capsule (75 mg total) by mouth 2 (two) times a day Max Daily Amount: 150 mg [facility] 500 mg 05/24/2021 12:00:00 AM EDT tablet 90 TAKE ONE TABLET BY MOUTH EVERY DAY TAKE ONE TABLET BY MOUTH EVERY DAY SOLD: 05/25/2021 [facility] 500 mg 05/24/2021 12:00:00 AM EDT tablet 90 TAKE ONE TABLET BY MOUTH THREE TIMES A DAY NEEDED FOR MUSCLE SPASMS TAKE ONE TABLET BY MOUTH THREE TIMES A DAY NEEDED FOR MUSCLE SPASMS SOLD: 05/25/2021 [facility] Hydralazine Hydrochloride 25 MG Oral Tablet HYDRALAZINE HCL 05/24/2021 12:00:00 AM EDT tablet 45 TAKE ONE-HALF TABLET BY MOUT H EVERY DAY FOR HYPERTENSION TAKE ONE-HALF TABLET BY MOUTH EVERY DAY FOR HYPERTENSION SOLD: 05/25/2021 [facility] Chlorzoxazone 500 MG Oral Tablet chlorzoxazone (PARAFO N FORTE) 500 MG tablet chlorzoxazone (PARAFON FORTE) 500 MG tablet 05/23/2021 12:00:00 AM EDT 500 mg Oral active Take 1 tablet (500 mg total) by mouth 3 (three) times a day as needed for muscle spasms [facility] 15 mg 05/12/2021 12:00:00 AM EDT tablet 90 TAKE ONE TABLET BY MOUTH EVERY DAY TAKE ONE TABLET BY MOUTH EVERY DAY SOLD: 05/12/2021 [facility] 20 mg 04/24/2021 12:00:00 AM EDT tablet 90 TAKE ONE TABLET BY MOUTH EVERY DAY TAKE ONE TABLET BY MOUTH EVERY DAY SOLD: 04/25/2021 [facility] 0.1 % 04/15/2021 12:00:00 AM EDT ointment 30 APPLY TO BILATERAL LOWER LEGS TWO TIMES A DAY APPLY TO BILATERAL LOWER LEGS TWO TIMES A DAY SOLD: 04/16/20 [facility] 50 mg 04/12/2021 12:00:00 AM EDT tablet 90 TAKE ONE TABLET BY MOUTH AT BEDTIME TAKE ONE TABLET BY MOUTH AT BEDTIME SOLD: 04/16/2021 [facility] 20 mg 04/09/2021 12:00:00 AM EDT capsule,delayed release (DR/EC) 90 TAKE ONE CAPSULE BY MOUTH EVERY DAY TAKE ONE CAPSULE BY MOUTH EVERY DAY SOLD: 04/09/2021 [facility] Tacrolimus 0.001 MG/MG Topical Ointment Tacrolimus 04/04/2021 12: 00:00 AM EDT active [facility] ([facility] 25 mg 03/07/2021 12:00:00 AM EDT tablet 90 TAKE ONE TABLET BY MOUTH EVERY DAY TAKE ONE TABLET BY MOUTH EVERY DAY SOLD: 06/11/2021 [facility] Losartan Potassium 25 MG Oral Tablet losartan (COZAAR) 25 MG tablet losartan (COZAAR) 25 MG tablet 03/07/2021 12:00:00 AM EDT 25 mg Oral active Take 25 mg by mouth daily [facility] 25 mg 03/07/2021 12:00:00 AM EDT tablet 90 TAKE ONE TABLET BY MOUTH EVERY DAY TAKE ONE TABLET BY MOUTH EVERY DAY SOLD: 03/08/2021 [facility] Metformin hydrochloride 500 MG Oral Tablet Metformin 02/07 10:08:07 AM EDT 500 MG active [facility] Potassium Chloride Potassium Chloride (K anna-Con M20) 20 mEq tablet,ER particles/crystals Potassium Chloride (Klor-Con M20) 20 mEq tablet,ER particles/crystals 01/24/2021 10:47:17 AM EDT 20 MEQ act bret [facility] 20 mEq 01/24/2021 12:00:00 AM EDT tablet,ER particles/cry stals 90 TAKE ONE TABLET BY MOUTH EVERY DAY TAKE ONE TABLET BY MOUTH EVERY DAY SOLD: 01/26/2021 [facility] 20 mEq 01/24/2021 12:00:00 AM EDT tablet,ER particles/cry stals 90 TAKE ONE TABLET BY MOUTH EVERY DAY TAKE ONE TABLET BY MOUTH EVERY DAY SOLD: 07/02/2021 [facility] Prednisone 20 MG Oral Tablet Prednisone 01/09/2021 12:00:00 AM EDT completed [facility] ([facility]) 20 mg 01/09/2021 12:00:00 AM EDT tablet 20 TAKE 3 TABLETS ONCE DAILY FOR 3 DAYS , 2 TABLETS ONCE DAILY FOR 3 DAYS, 1 TABLET ONCE DAILY FOR 3 DAYS , ONE- HALF TABLET ONCE DAILY FOR 4 DAYS TAKE 3 TABLETS ONCE DAILY FOR 3 DAYS , 2 TABLETS ONCE DAILY FOR 3 DAYS, 1 TABLET ONCE DAILY FOR 3 DAYS , ONE-HALF TABLET ONCE DAILY FOR 4 DAYS SOLD: 01/09/2021 [facility] 500 mg 01/02/2021 12:00:00 AM EDT tablet 90 TAKE ONE TABLET BY MOUTH THREE TIMES A DAY NEEDED FOR MUSCLE SPASMS TAKE ONE TABLET BY MOUTH THREE TIMES A DAY NEEDED FOR MUSCLE SPASMS SOLD: 01/03/2021 [facility] Zinc Oxide 0.4 MG/MG Topical Ointment Zinc Oxide 01/02/2021 12:00:00 AM EDT completed [facility] [place] 01/02/2021 12:00:00 AM EDT completed [facility] ([facility]) Medication administered onsite 500 mg 01/02/2021 12:00:00 AM EDT tablet 90 TAKE ONE TABLET BY MOUTH THREE TIMES A DAY NEEDED FOR MUSCLE SPASMS TAKE ONE TABLET BY MOUTH THREE TIMES A DAY NEEDED FOR MUSCLE SPASMS SOLD: 03/08/2021 [facility] Chlorzoxazone 500 MG Oral Tablet chlorzoxazone (PARAFO N FORTE) 500 MG tablet chlorzoxazone (PARAFON FORTE) 500 MG tablet 01/01/2021 12:00:00 AM EDT 500 mg Oral active Take 1 tablet (500 mg total) by mouth 3 (three) times a day as needed for muscle spasms [facility] Botox 100 Units 12/18/2020 12:00:00 AM EDT co mpleted [facility] ([facility]) Medication administered onsite 20 mg 12/14/2020 12:00:00 AM EDT tablet 90 TAKE ONE TABLET BY MOUTH EVERY DAY TAKE ONE TABLET BY MOUTH EVERY DAY SOLD: 12/16/2020 [facility] Lovastatin 20 MG Oral Tablet Lovastatin 12/13/2020 02:14:21 PM EDT 20 MG active [facility] [employer] 12/04/2020 12:00:00 AM EDT completed [facility] ([facility]) Medication administered onsite doxycycline hyclate 100 MG Oral Capsule DOXYCYCLINE HYCLATE 11/23/2020 12:00:00 AM EDT capsule 14 TAKE ONE CAPSULE BY MOUTH TW ICE A DAY TAKE ONE CAPSULE BY MOUTH TWICE A DAY SOLD: 11/25/2020 [facility] doxycycline hyclate 100 MG Oral Capsule Doxycycline Hyclate 11/23/2020 12:00:00 AM EDT ORAL completed [facility] ([facility]) [employer] 11/22/2020 12:00:00 AM EDT completed [facility] ([facility]) Medication administered onsite 10 mg 11/20/2020 12:00:00 AM EDT tablet 30 TAKE ONE TO TWO TABLETS BY MOUTH EVERY 6 HOURS NEEDED FOR THE ITCH TAKE ONE TO TWO TABLETS BY MOUTH EVERY 6 HOURS NEEDED FOR THE ITCH SOLD: 11/21/2020 [facility] 250 mg 11/19/2020 12:00:00 AM EDT tablet 6 TAKE TWO TABLETS BY MOUTH AT ONCE ON THE FIRST DAY THEN TAKE ONE DAILY THEREAFTER TAKE TWO TABLETS BY MOUTH AT ONCE ON THE FIRST DAY THEN TAKE ONE DAILY THEREAFTER SOLD: 11/19/2020 [facility] Potassium Chloride Potassium Chloride (K anna-Con M20) 20 mEq tablet,ER particles/crystals Potassium Chloride (Klor-Con M20) 20 mEq tablet,ER particles/crystals 11/16/2020 04:20:33 PM EDT 20 MEQ com pleted [facility] Metformin hydrochloride 1000 MG Oral Tablet Metformin 11/16/2020 04:20:17 PM EDT 1000 MG completed [facility] Lovastatin 20 MG Oral Tablet Lovastatin 11/16/2020 04:20:01 PM EDT 20 MG [facility] 20 mg 11/16/2020 12:00:00 AM EDT tablet 30 TAKE ONE TABLET BY MOUTH EVERY DAY TAKE ONE TABLET BY MOUTH EVERY DAY SOLD: 11/18/2020 [facility] Metformin hydrochloride 1000 MG Oral Tablet 1,000 mg METFORM IN HCL 11/16/2020 12:00:00 AM EDT tablet 60 TAKE ONE TABLET BY MOUTH TWICE A DAY TAKE ONE TABLET BY MOUTH TWICE A DAY SOLD: 11/18/2020 [facility] 20 mEq 11/16/2020 12:00:00 AM EDT tablet,ER particles/cry stals 30 TAKE ONE TABLET BY MOUTH EVERY DAY TAKE ONE TABLET BY MOUTH EVERY DAY SOLD: 11/18/2020 [facility] 40 mg 11/02/2020 12:00:00 AM EST capsule,delayed release (DR/EC) 90 TAKE ONE CAPSULE BY MOUTH EVERY DAY TAKE ONE CAPSULE BY MOUTH EVERY DAY SOLD: 01/29/2021 [facility] 40 mg 11/02/2020 12:00:00 AM EST capsule,delayed release (DR/EC) 90 TAKE ONE CAPSULE BY MOUTH EVERY DAY TAKE ONE CAPSULE BY MOUTH EVERY DAY SOLD: 11/02/2020 [facility] Omeprazole 40 MG Delayed Release Oral Capsule Omeprazole 11/01/2020 03:20:51 PM EST [address] [facility] Omeprazole 40 MG Delayed Release Oral Capsule Omeprazole 11/01/2020 12:37:06 PM EST 40 MG completed [facility] meloxicam 15 MG Oral Tablet Meloxicam Meloxicam 10/29/2020 10:40 :05 AM EST 15 MG active [facility] 15 mg 10/29/2020 12:00:00 AM EST tablet 90 TAKE ONE TABLET BY MOUTH EVERY DAY TAKE ONE TABLET BY MOUTH EVERY DAY SOLD: 10/29/2020 [facility] 15 mg 10/29/2020 12:00:00 AM EST tablet 90 TAKE ONE TABLET BY MOUTH EVERY DAY TAKE ONE TABLET BY MOUTH EVERY DAY SOLD: 02/03/2021 [facility] Losartan Potassium 50 MG Oral Tablet Losartan 10/25/2020 01:16: 15 PM EST 50 MG active [facility] 50 mg 10/25/2020 12:00:00 AM EST tablet 90 TAKE ONE TABLET BY MOUTH EVERY DAY TAKE ONE TABLET BY MOUTH EVERY DAY SOLD: 10/27/2020 [facility] Hydralazine Hydrochloride 25 MG Oral Tablet Hydralazine 10/16/2020 01:03:26 PM EST [address] [facility] Hydralazine Hydrochloride 25 MG Oral Tablet HYDRALAZINE HCL 10/16/2020 12:00:00 AM EST tablet 90 TAKE ONE TABLET BY MOUTH TANIYA DAY TAKE ONE TABLET BY MOUTH EVERY DAY SOLD: 01/22/2021 [facility] Hydralazine Hydrochloride 25 MG Oral Tablet HYDRALAZINE HCL 10/16/2020 12:00:00 AM EST tablet 90 TAKE ONE TABLET BY MOUTH TANIYA DAY TAKE ONE TABLET BY MOUTH EVERY DAY SOLD: 10/17/2020 [facility] Hydralazine Hydrochloride 25 MG Oral Tablet Hydralazine 10/11/2020 05:17:39 PM EST 25 MG completed [facility] Hydralazine Hydrochloride 25 MG Oral Tablet Hydralazine 10/08/2020 08:25:51 PM EST 25 MG completed [facility] Hydralazine Hydrochloride 25 MG Oral Tablet Hydralazine 10/08/2020 08:25:15 PM EST 25 MG completed [facility] Chlorzoxazone 500 MG Oral Tablet chlorzoxazone (PARAFO N FORTE) 500 MG tablet chlorzoxazone (PARAFON FORTE) 500 MG tablet 10/04/2020 12:00:00 AM EST 500 mg Oral aborted Take 1 tablet (500 mg total) by mouth 3 (three) times a day as needed for muscle spasms [facility] 500 mg 10/04/2020 12:00:00 AM EST tablet 90 TAKE ONE TABLET BY MOUTH THREE TIMES A DAY NEEDED FOR MUSCLE SPASMS TAKE ONE TABLET BY MOUTH THREE TIMES A DAY NEEDED FOR MUSCLE SPASMS SOLD: 10/05/2020 [facility] Hydralazine Hydrochloride 25 MG Oral Tablet Hydralazine 10/01/2020 03:14:37 PM EST 25 MG completed [facility] 10 mg 09/25/2020 12:00:00 AM EST tablet 30 TAKE 1 TO 2 TABLETS BY MOUTH EVERY 6 HOURS FOR THE ITCH TAKE 1 TO 2 TABLETS BY MOUTH EVERY 6 МАРИНА RS FOR THE ITCH SOLD: 09/27/2020 [facility] Atenolol 50 MG Oral Tablet Atenolol 09/14/2020 02:38:10 PM EST 5 0 MG active [facility] Atenolol 50 MG Oral Tablet ATENOLOL 09/14/2020 12:00:00 AM EST tablet 90 TAKE ONE TABLET BY MOUTH AT BEDTIME TAKE ONE TABLET BY MOUTH AT BEDTIME SOLD: 09/18/2020 [facility] 50 mg 09/14/2020 12:00:00 AM EST tablet 90 TAKE ONE TABLET BY MOUTH AT BEDTIME TAKE ONE TABLET BY MOUTH AT BEDTIME SOLD: 01/02/2021 [facility] Atenolol 50 MG Oral Tablet Atenolol 09/12/2020 09:59:41 AM EST 5 0 MG completed [facility] 50 mg 09/05/2020 12:00:00 AM EST tablet extended release 24 hr 30 TAKE ONE TABLET BY MOUTH EVERY DAY TAKE ONE TABLET BY MOUTH EVERY DAY SOLD: 09/07/2020 [facility] 09/05/2020 12:00:00 AM EST completed [facility] ([facility]) Medication administered onsite [employer] 08/28/2020 12:00:00 AM EST completed [facility] ([facility]) Medication administered onsite [employer] 08/20/2020 12:00:00 AM EST completed [facility] ([facility]) Medication administered onsite Atenolol 50 MG Oral Tablet Atenolol 08/13/2020 12:49:32 PM EST 5 0 MG completed [facility] Atenolol 50 MG Oral Tablet Atenolol 08/10/2020 01:35:16 PM EST 5 0 MG completed [facility] Hydroxyzine Hydrochloride 10 MG Oral Tablet Hydroxyzine Hcl Hydroxyzine Hcl 08/09/2020 01:02:36 PM EST 0 completed [facility] Hydroxyzine Hydrochloride 10 MG Oral Tablet Hydroxyzine Hcl Hydroxyzine Hcl 08/09/2020 01:02:36 PM EST 0 active [facility] Hydralazine Hydrochloride 25 MG Oral Tablet Hydralazine 06/18/2020 08:17:16 AM EDT 25 MG completed [facility] Hydralazine Hydrochloride 25 MG Oral Tablet Hydralazine 06/18/2020 08:17:16 AM EDT 25 MG completed [facility] Omeprazole 40 MG Delayed Release Oral Capsule Omeprazole 06/05/2020 12:58:40 PM EDT 40 MG completed [facility] Omeprazole 40 MG Delayed Release Oral Capsule Omeprazole 06/05/2020 12:58:40 PM EDT 40 MG completed [facility] Hydroxyzine Hydrochloride 10 MG Oral Tablet hydrOXYzin e (ATARAX) 10 MG tablet hydrOXYzine (ATARAX) 10 MG tablet 05/15/2020 12:00:00 AM EDT {tbl} Oral aborted Take 1-2 tablets by mouth every 6 (six) hours as needed [facility] 24 HR tolterodine tartrate 4 MG Extended Release Oral Capsule Tolterodine Tolterodine 05/14/2020 11:55:34 AM EDT 4 MG completed [facility] 24 HR tolterodine tartrate 4 MG Extended Release Oral Capsule Tolterodine Tolterodine 05/14/2020 11:55:34 AM EDT 4 MG active [facility] 24 HR tolterodine tartrate 4 MG Extended Release Oral Capsule Tolterodine Tolterodine 05/14/2020 11:55:34 AM EDT 4 MG active [facility] Metformin hydrochloride 1000 MG Oral Tablet Metformin 05/14/2020 11:53:35 AM EDT 1000 MG active [facility] Metformin hydrochloride 1000 MG Oral Tablet Metformin 05/14/2020 11:53:35 AM EDT 1000 MG active [facility] Metformin hydrochloride 1000 MG Oral Tablet Metformin 05/14/2020 11:53:35 AM EDT 1000 MG completed [facility] Afluria Qd (3yr up)(PF) (flu vac [id number] 36mos up(P F)) 05/14/2020 11:10:37 AM EDT 60 MCG completed [facility] Afluria Qd 2019-(3yr up)(PF) (flu vac [id number] 36mos up(P F)) 05/14/2020 11:10:37 AM EDT 60 MCG completed [facility] Lovastatin 20 MG Oral Tablet Lovastatin 05/02/2020 05:10:44 PM EDT 20 MG completed [facility] Potassium Chloride Potassium Chloride (K anna-Con M20) 20 mEq tablet,ER particles/crystals Potassium Chloride (Klor-Con M20) 20 mEq tablet,ER particles/crystals 04/23/2020 11:34:10 AM EDT 20 MEQ com pleted [facility] Omeprazole 40 MG Delayed Release Oral Capsule Omeprazole 04/23/2020 11:33:31 AM EDT 40 MG completed [facility] Omeprazole 40 MG Delayed Release Oral Capsule Omeprazole 04/23/2020 11:33:31 AM EDT 40 MG completed [facility] Losartan Potassium 50 MG Oral Tablet Losartan 04/23/2020 08:12: 47 AM EDT 50 MG completed [facility] meloxicam 15 MG Oral Tablet Meloxicam Meloxicam 04/23/2020 08:12 :33 AM EDT 15 MG completed [facility] Losartan Potassium 50 MG Oral Tablet losartan (COZAAR) 50 MG tablet losartan (COZAAR) 50 MG tablet 04/23/2020 12:00:00 AM EDT 50 mg Oral aborted Take 50 mg by mouth nightly [facility] Atenolol 50 MG Oral Tablet Atenolol 01/30/2020 09:48:51 AM EDT 5 0 MG completed [facility] Dulaglutide (Trulicity) 0.75 mg/0.5 mL pen injector 11/14/2019 05:32:51 PM EDT 0.75 MG completed [facility] Dulaglutide (Trulicity) 0.75 mg/0.5 mL pen injector 11/14/2019 05:32:51 PM EDT 0.75 MG completed [facility] Dulaglutide (Trulicity) 0.75 mg/0.5 mL pen injector 11/14/2019 05:32:51 PM EDT 0.75 MG completed [facility] 0.5 ML dulaglutide 1.5 MG/ML Auto-Inject or [Trulicity] TRULICITY 0.75 MG/0.5ML SOPN TRULICITY 0.75 MG/0.5ML SOPN 11/14/2019 12:00:00 AM EDT aborted [facility] sitagliptin 25 MG Oral Tablet Sitagliptin (Januvia) 25 mg tablet Sitagliptin (Januvia) 25 mg tablet 11/11/2019 11:29:05 AM EDT 25 MG completed [facility] sitagliptin 25 MG Oral Tablet Sitagliptin (Januvia) 25 mg tablet Sitagliptin (Januvia) 25 mg tablet 11/11/2019 11:29:05 AM EDT 25 MG completed [facility] sitagliptin 25 MG Oral Tablet Sitagliptin (Januvia) 25 mg tablet Sitagliptin (Januvia) 25 mg tablet 11/11/2019 11:29:05 AM EDT 25 MG completed [facility] Hydralazine Hydrochloride 25 MG Oral Tablet Hydralazine 11/07/2019 10:00:32 AM EDT 25 MG completed [facility] Hydralazine Hydrochloride 25 MG Oral Tablet Hydralazine 11/07/2019 10:00:32 AM EDT 25 MG completed [facility] Lovastatin 20 MG Oral Tablet Lovastatin 10/10/2019 01:49:29 PM EST 20 MG completed [facility] Lovastatin 20 MG Oral Tablet Lovastatin 10/10/2019 01:49:29 PM EST 20 MG completed [facility] Ciprofloxacin 0.003 MG/MG Ophthalmic Oin tment [Ciloxan] CILOXAN 0.3 % ophthalmic ointment CILOXAN 0.3 % ophthalmic ointment 05/27/2019 12:00:00 AM EDT 1 [drp] aborted Administer 1 drop to bot h eyes daily [facility] 24 HR tolterodine tartrate 4 MG Extended Release Oral Capsule tolterodine (DETROL LA) 4 MG 24 hr capsule tolterodine (DETROL LA) 4 MG 24 hr capsule 01/09/2019 12:00:00 AM EDT aborted [facility] Chlorzoxazone 500 MG Oral Tablet chlorzoxazone (PARAFO N FORTE) 500 MG tablet chlorzoxazone (PARAFON FORTE) 500 MG tablet 01/03/2019 12:00:00 AM EDT aborted [facility] Betamethasone 0.5 MG/ML Augmented Topica l Cream betamethasone, augmented, (DIPROLENE) 0.05 % cream betamethasone, augmented, (DIPROLENE) 0.05 % cream 11/12/2018 12:00:00 AM EDT aborted [facility] 24 HR tolterodine tartrate 4 MG Extended Release Oral Capsule Tolterodine Tolterodine 11/11/2018 01:11:00 PM EDT 4 MG completed [facility] 24 HR tolterodine tartrate 4 MG Extended Release Oral Capsule Tolterodine Tolterodine 11/11/2018 01:11:00 PM EDT 4 MG completed [facility] 24 HR tolterodine tartrate 4 MG Extended Release Oral Capsule Tolterodine Tolterodine 11/11/2018 01:11:00 PM EDT 4 MG completed [facility] Metformin hydrochloride 1000 MG Oral Tablet Metformin 08/16/2018 01:13:00 PM EST 1 TAB completed [facility] Metformin hydrochloride 1000 MG Oral Tablet Metformin 08/16/2018 01:13:00 PM EST 1 TAB completed [facility] Metformin hydrochloride 1000 MG Oral Tablet Metformin 08/16/2018 01:13:00 PM EST 1 TAB completed [facility] Insurance Providers Payer name Policy type / Coverage type Policy ID Covered alliance party ID Covered alliance party's relationship to kong Policy Kong Plan Information WORKER'S COMP [id number] [facility]82 [id number] COMMERCIAL MISC. [id number] Self [id number] WORKER'S COMP [id number] [id number] WORKER'S COMP [id number] [facility] [id number] WORKER'S COMP [id number] [facility] [id number] MEDICARE [id number] Self [id number] MEDICARE [id number] Self [id number] MEDICARE A [id number] Self [id number] [place] Primary [id number] 2.840.1.394759.3.227.99.23.92368.0 Self [id number] Medicare Medigap Part B [id number] 2.0.1.234355.3.227.99.802.2 96478.0 Self [id number] Medicare Medigap Part B [id number] 2.0.1.247587.3.227.99.802.2 74709.0 Self [id number] [place] Medicare Primary [id number] 2.0.1.370414.3.227.99.23.94051.0 Self [id number] Medicare Medicare Primary [id number] 2.0.1.603118.3.227. 99.802.668648.0 Self [id number] [place] Medicare Primary [id number] 2.0.1.505464.3.227.99.991.38626.0 Self 1 [id number] [place] Medicare Primary [id number] 2.0.1.855861.3.227.99.991.80777.0 Self 1 [id number] [place] Medicare Primary [id number] 2.0.1.064714.3.227.99.23.39539.0 Self [id number] [place] Medicare Primary [id number] 2.0.1.267423.3.227.99.991.53675.0 Self 1 [id number] [facility] MEDICARE (81) [id number] 1 [id number] Medicare Medicare Primary [id number] 2.0.1.111995.3.227. 99.802.595208.0 Self [id number] [place] Primary [id number] 2.0.1.661709.3.227.99.991.37809.0 Self 1 [id number] Medicare [place] Medicare Primary [id number] 2.16.840.1.224435.3.227.99.991.34083.0 Self 2 [id number] Medicare Medigap Part B [id number] 2.16.840.1.579821.3.227.99.802.2 27099.0 Self [id number] [place] Medicare Primary [id number] 2.16.840.1.848962.3.227.99.991.31918.0 Self 1 [id number] Medicare [place] Medicare Primary [id number] 2.16.840.1.046421.3.227.99.991.98458.0 Self 1 [id number] [place] Medicare Primary [id number] Self [id number] Medicare Medicare Primary [id number] Self Medicare Medigap Part B [id number] 2.16.840.1.280088.3.227.99.802.2 48617.0 Self [id number] [employer](pr) Medigap Part B [id number] 2.16840.1.389325.3.227.99.991.90403.0 Self [id number] [employer](pr) Medigap Part B [id number] Self [id number] [employer](pr) Medigap Part B [id number] 2.16.840.1.355562.3.227.99.991.17537.0 Self [id number] [employer](pr) Medigap Part B [id number] 2.16.840.1.160741.3.227.99.991.01475.0 Self [id number] [employer](pr) Medigap Part B [id number] 2.16840.1.986123.3.227.99.991.93334.0 Self [id number] [employer](pr) Medigap Part B [id number] 2.16840.1.206565.3.227.99.991.82160.0 Self [id number] [employer](pr) Medigap Part B [id number] 2.16840.1.910440.3.227.99.991.38035.0 Self [id number] [employer](pr) Medigap Part B [id number] 2.16840.1.136689.3.227.99.991.07916.0 Self [id number] [employer] Supplemental Plan Medigap Part B [id number] 2.0.1.956356.3.227.99.802.325176.0 Self [id number] [employer] Supplemental Plan Medigap Part B [id number] 2.0.1.892633.3.227.99.802.106935.0 Self [id number] [employer] Supplemental Plan Medigap Part B [id number] 2.0.1.046496.3.227.99.802.371182.0 Self [id number] [employer] Supplemental Plan Medigap Part B [id number] 2.840.1.528676.3.227.99.802.309666.0 Self [id number] [employer] Supplemental Plan Medigap Part B [id number] 2.0.1.466615.3.227.99.802.161189.0 Self [id number] [employer] Supplemental Plan Medigap Part B [id number] 2.0.1.174462.3.227.99.802.680325.0 Self [id number] [employer] Supplemental Plan Medigap Part B [id number] Self [employer] Medigap Part B [id number] 2.840.1.226677.3.227.99.991.80501.0 Self [id number] [employer] Medigap Part B [id number] 2.16.840.1.344409.3.227.99.991.39006.0 Self [id number] [employer] Medigap Part B [id number] 2.16.840.1.380404.3.227.99.991.24306.0 Self [id number] [employer] Medigap Part B [id number] 2.16.840.1.735800.3.227.99.991.12564.0 Self [id number] [employer] Options Medigap Part B [id number] Self [id number] [employer] Medigap Part B [id number] 2.16840.1.735780.3.227.99.991.05832.0 Self [id number] [employer] Medigap Part B [id number] 2.16.840.1.813794.3.227.99.991.71542.0 Self [id number] [employer] [facility] Medigap Part B [id number] 2.16.840.1.292181.3.227.99.991.98147.0 Self [id number] COMMERCIAL GENERIC [id number] Self [id number] AAR U [id number] Self [id number] Medicare Dme Supplies Medigap Part B [id number] 2.16840.1.992443.3.227.99.991.52854.0 Self 1 [id number] Medicare Medicare Primary [id number] 2.16.840.1.489253.3.227. 99.802.453747.0 Self [id number] Medicare Dme Supplies Medigap Part B [id number] Self [id number] Medicare Dme Supplies Medigap Part B [id number] 2.16.840.1.441852.3.227.99.991.35729.0 Self 1 [id number] [employer] [id number] 2.16840.1.218207.3.227.99.23.86279.0 Self [id number] MEDICARE PART A -O/P [id number] 18 [id number] AARP HE[employer] CARE OPTIONS -O/P [id number] 18 [id number] Medicare Dme Supplies Medigap Part B [id number] 2.16840.1.099233.3.227.99.991.23516.0 Self 1 [id number] MEDICARE [id number] SP [id number] A COMMERCIAL MIS. Self Medicare Dme Supplies Medigap Part B [id number] 2.16840.1.255497.3.227.99.991.21284.0 Self 1 [id number] MEDICARE A Self [employer] Options Medigap Part B [id number] Self [employer] [id number] 2.16840.1.019621.3.227.99.23.15517.0 Self [id number] Medicare [place] Primary [id number] Self AARP HE[employer] CARE OPTIONS [id number] SP [id number] [employer] [id number] Self Medicare Medicare Primary [id number] 2.16840.1.904015.3.227. 99.802.341637.0 Self [id number] Medicare Medicare Primary [id number] 2.16840.1.821772.3.227. 99.802.530218.0 Self [id number] [employer] [id number] 2.16840.1.650938.3.227.99.23.79203.0 Self [id number] Medicare Dme Supplies Medigap Part B [id number] 2.16840.1.293092.3.227.99.991.86162.0 Self 1 [id number] Medicare Medicare Primary [id number] 2.16.840.1.360377.3.227. 99.802.730806.0 Self [id number] MEDICARE [id number] SP [id number] Medicare Dme Supplies [facility] Part B [id number] 2.16.840.1.009584.3.227.99.991.49997.0 Self 1 [id number] [facility] Supp[facility] [id number] 2.16.840.1.232887.3.227.99.991.63655.0 Self 1 [id number] Medicare [place] Medicare Primary [id number] Self [employer] [id number] SPECIAL ACCOUNT (8) UNAVAILABLE UNAVAILABLE Problems, Conditions, and Diagnoses Code Display Name Description Problem Type Effective Dates Data Source(s) M47.816 Spondylosis without myelopathy or radicu lopathy, lumbar region Spondylosis without myelopathy or radicu Diagnosis 05/15/2021 09:29:37 AM EDT [facility] G89.29 Other chronic pain Other chronic pain Diagnosis 09:29:37 AM EDT [facility] M54.5 Low back pain Low back pain Diagnosis 05/15/2021 09:29:37 AM EDT [facility] M54.16 Radiculopathy, lumbar region Radiculopathy, lumbar reg ion Diagnosis 05/02/2021 11:00:13 AM EDT [facility] C50.912 Malignant neoplasm of unspecified site o f left female breast Malignant neoplasm of unspecified site of left female breast Diagnosis 02:45:00 PM EDT [facility] M96.1 Postlaminectomy syndrome, not elsewhere classified Postlaminectomy syndrome, not elsewhere Diagnosis 02/13/2021 01:21:41 PM EDT [facility] M53.3 Sacrococcygeal disorders, not elsewhere classified Sacrococcygeal disorders, not elsewhere Diagnosis 09/07/2020 10:10:07 AM EDMUNDO [facility] M46.1 Sacroiliitis, not elsewhere classified S acroiliitis, not elsewhere classified Diagnosis 05/22/2020 10:25:22 AM EDT [facility] R94.31 Electrocardiogram abnormal Electrocardiogram abnormal Problem 07/02/2021 12:00:00 AM EDT [facility] ([facility]) C50.911 [id number] Malignant neoplasm o f right female breast, unspecified estrogen receptor status, unspecified site of breast Problem 1 12:00:00 AM EDT eCW1 ([facility]) C50.911 [id number] Invasive ductal carcinoma of right breast Problem 05/22/2021 12:00:00 AM EDT eCW1 ([facility]) C50.911 [id number] Infiltrating ductal carcinoma of right br east Problem 05/10/2021 12:00:00 AM EDT eCW1 ([facility]) N32.81 Overactive bladder Overactive bladder Problem 12:00:00 AM EDT [facility] ([facility]) R39.12 Poor stream of urine Poor stream of urine Problem 11/21/2020 12:00:00 AM EDT [facility] ([facility]) R39.14 Incomplete emptying of bladder Incomplete emptying of bladder Problem 11/21/2020 12:00:00 AM EDT [facility] ([facility]) N39.0 Urinary tract infectious disease Urinary tract infecti ous disease Problem 11/21/2020 12:00:00 AM EDT [facility] ([facility]) Surgeries/Procedures Procedure Description Date Indications Data Source(s) OFFICE OUTPATIENT VISIT 40 MINUTES 07/02/2021 12:00:00 AM EDT [facility] ([facility]iology) Myocardial Perfusion Imaging Tomographic (Spect) Multiple St udies 06/21/2021 12:00:00 AM EDT [facility] ([facility]) ARTHROCENTESIS ASPIR&/INJECTION MAJOR JT/BURSA 021 12:00:00 AM EDT [facility] ([facility] ) OFFICE OUTPATIENT VISIT 15 MINUTES 05/16/2021 12:00:00 AM EDT [facility] ([facility]) OFFICE OUTPATIENT VISIT 25 MINUTES 04/04/2021 12:00:00 AM EDT [facility] ([facility]) GERARDO POST-VOIDING RESIDUAL URINE&/BLDR CAP 01/22/2021 12:00:00 AM EDT [facility] ([facility]) OFFICE OUTPATIENT VISIT 25 MINUTES 01/09/2021 12:00:00 AM EDT [facility] ([facility]) STRAPPING UNNA BOOT 01/02/2021 12:00:00 AM EDT [facility] ([facility]) OFFICE OUTPATIENT VISIT 25 MINUTES 01/02/2021 12:00:00 AM EDT [facility] ([facility]) INSJ NON-NDWELLG BLADDER CATHETER 12/18/2020 12:00:00 AM EDT [facility] ([facility]) Cystourethroscopy,/W Injects For [facility] Of The Wes dder 12/18/2020 12:00:00 AM EDT [facility] ([facility]) OFFICE OUTPATIENT VISIT 15 MINUTES 12/11/2020 12:00:00 AM EDT [facility] ([facility]) STRAPPING UNNA BOOT 12/04/2020 12:00:00 AM EDT [facility] ([facility]) OFFICE OUTPATIENT VISIT 25 MINUTES 12/04/2020 12:00:00 AM EDT [facility] ([facility]) OFFICE OUTPATIENT VISIT 25 MINUTES 12/04/2020 12:00:00 AM EDT [facility] ([facility]) STRAPPING UNNA BOOT 11/22/2020 12:00:00 AM EDT [facility] ([facility]) OFFICE OUTPATIENT VISIT 25 MINUTES 11/22/2020 12:00:00 AM EDT [facility] ([facility]) GERARDO POST-VOIDING RESIDUAL URINE&/BLDR CAP 11/21/2020 12:00:00 AM EDT [facility] ([facility]) ARTHROCENTESIS ASPIR&/INJECTION MAJOR JT/BURSA 021 12:00:00 AM EST [facility] ([facility] ) MRI Upper Extremity Any Joint 10/01/2020 12:00:[address] [facility] ([facility] ) MRI Upper Extremity Any Joint 10/01/2020 12:00:[address] [facility] ([facility] ) GERARDO POST-VOIDING RESIDUAL URINE&/BLDR CAP 05/22/2020 12:00:00 AM EDT [facility] ([facility]) ARTHROCENTESIS ASPIR&/INJECTION MAJOR JT/BURSA 020 12:00:00 AM EDT [facility] ([facility]) Results ID Date Data Source [id number] 06/21/2021 01:51:00 PM EDT [facility] [address] [place], [place] [id number] [phone] NAME SEX PT STATUS ACCOUNT NUMBER MICHELLE RAJAN REG REF [id number] ORDERING PHYSICIAN LOCATION MEDICAL RECORD NO. Coby Marcelo MD EKG [id number] ATTENDING PHYSICIAN DATE OF DATE OF EXAM/TIME Coby Marcelo MD 1945 06/21/21729 TYPE / EXAM NM Nuclear Stress Test REASON FOR EXAM history of heart disease CARDIAC NUCLEAR STRESS TEST IMAGING REPORT TECHNIQUE: Myocardial perfusion SPECT imaging was performed at rest and stress, and compared [id number]. Technetium 99m sestamibi was used for imaging purposes. RESULTS: 1. Gated myocardial perfusion SPECT imaging reveals normal perfusion of all left ventricular myocardial segments. 2. Resting images are similarly normal. 3. No significant artifact is present. 4. Gated SPECT analysis estimates ejection fraction at 55% with normal wall motion, and there was notransient ischemic dilatation. CONCLUSION: 1. Normal myocardial perfusion. 2. Normal left ventricular sys tolic function. Reported By Darren Livingston MD on 06/21/21 1351 Signed By Darren Livingston MD on 07/04/21 3457 <<Signature on File>> Date Time CC: Darren Livingston M.D.; Coby Marcelo MD Techn: BIN Trans Dt/Tm: 06/21/21 1504 Trans by: HERMILO Rojas Dt/Tm: : Total DLP = 0.00 mGy-cm : Total Radiation Dose = 0.0000 mSv Lifetime Dose: 0 mSv Name Value Range Interpretation Code Description Data Donna rce(s) Supporting Document(s) ID Date Data Source [id number] 06/21/2021 02:40:00 PM EDT [facility] ([facility]) Name Value Range Interpretation Code Description Data Donna rce(s) Supporting Document(s) Nuclear Read Only Laboratory test result [facility] ([facility]) ID Date Data Source [id number] 06/21/2021 09:34:00 AM EDT [facility] ST RESS TEST CONSULTATION NAME: MICHELLE RAJAN : 1945 AGE: 76 MR#: [id number] ADMITTING DATE: 06/21/[address]: DISCHARGE DATE: ATTENDING DR: Coby Marcelo MD ROOM#: This is a 76-year-old female who has breast cancer and is going to get a double mastectomy. She has a history of hypertension, diabetes, obstructive sleep apnea, coronary artery disease, and hyperlipidemia. After her first set of Cardiolite images, she was brought to the EKG Department and injected with 0.4 mg Lexiscan over 20 seconds. She tolerated the procedure well. She had blood pressures in the 170 to 180 range, both before the procedure and as the procedure completed. We are awaiting our second set of Cardiolite images. We are going to be increasing her losartan from 25 mg to 50 mg, and seeing her back in the office for recheck of her blood pressure before the procedure. <Electronically signed by Coby Marcelo MD> Coby Marcelo MD 06/25/21 1320 Coby Marcelo MD Cosigner: D: DAYSI 06/21/21 0934 T: ABBI 06/21/21 1139 CC: Coby Marcelo MD LAST EDIT: Name Value Range Interpretation Code Description Data Donna rce(s) Supporting Document(s) ID Date Data Source [id number] 06/13/2021 02:46:00 PM EDT [facility] Patient Name: MCIHELLE RAJAN : 1945 Sex: F Pt Unit #: [id number] Location:[facility] Provider: Visit Date/Time: 06/13/21 Primary Insurance: MEDICARE [employer] Secondary Insurance: AARP Intake Vital Signs 06/13/21 14:50 Current Height 4 ft 6.75 in Current Weight 231 lb Weight Measurement Method Standing Scale BMI 54.1 BP 140/80 Position Sitting Respiration 16 Pulse 58 L Pulse Source Pulse Oximeter Temp 97.8 F Temp Source Tympanic Pulse Oximetry (%) 97 Oxygen Delivery Method room air Intake Visit Reasons: Pre-operative H P Nurse Note: here for preop clearance for a double mastectomy on 06/25/21 at [facility]. last labs done 05/24/21. cxr andekg done. Development Scientist Required: No Is patient in pain?: Yes Allergies propofol Allergy (Severe, Unverified 05/26/19 11:35) Wheezing, high blood pressure, diarrhea latex [Latex] Allergy (Unknown, Unverified 12/24/17 09:58) nitroglycerin [Nitroglycerin] Allergy (Unknown, Unverified 12/24/17 09:58) Penicillins Allergy (Unknown, Unverified 12/24/17 09:58) Sulfa (Sulfonamide Antibiotics) Allergy (Unknown, Unverified 12/24/17 09:58) fish oil Adverse Reaction (Unverified 11/11/18 13:44) diarrhea HIV Testing Offer - ages 13-64 Requirement for HIV testing offer been met?: Not in age range Coronavirus Screening Screening Are you currently positive or on isolation for COVID ?: No Do you have any NEW signs of one or more of the following?: no symptoms Do you have NEW signs of at least two of the following?: no symptoms HPI Pre-Operative H P Last cardiac workup was over three years ago.She sees [facility]. has no chest pain. Surgery Information Proposed Surgical Procedure: Double mastectomy Date of surgery: 06/25/21 Anesthesia: general Covid Screening Pre-Op Covid testing ordered?: Yes E xercise tolerance Can climb one flight of stairs (12-13 steps) in less than 30 seconds without stopping and without symptoms: No Risk factors Pulmonary risk factors: age > 60 Active cardiac conditions: none Active risk factors: hx of ischemic heart disease and hx of diabetes mellitus Sleep apnea risks: Yes Pertinent Past History Medical History: Coronary artery disease, Diabetes mellitus and Hypertension Previous surgical complications: No Previous anesthesia intolerance: Yes (propfol wheezing,diarrhea) Steroid use in last 6 months: Yes (injections r shoulder sep) Allergies to meds or foods: Yes Pertinent Family History Family hx adverse reaction to anesthesia: No Family history coagulopathy: No Menstrual History Menopausal?: Yes Surgical Risk Surgical risk for this patient: Intermediate [facility] Medical History (Updated 06/13/21 @ 15:18 by Coby Marcelo MD) Acute myocardial infarction Allergic rhinitis Asthma Benign esophageal stricture Chronic low back pain Chronic osteoarthritis Chronic urticaria Coronary arteriosclerosis Degeneration of intervertebral disc Diabetes mellitus type 2 in obese (08/11/11) Eczema Edema Gastroesophageal reflux disease with esophagitis (11/11/18) Hiatal hernia hx of stroke Hypertension, essential Lichen simplex chronicus Mixed hyperlipidemia (08/11/11) Obesity Obstructive sleep apnea, adult Polyp of colon Restless legs Right rotator cuff tendinitis (11/12/16) Stasis dermatitis Stress incontinence in female Varicose veins of lower extremity with inflammation Surgical History (Updated 11/02/19 @ 14:55 by Coby Marcelo MD) Appendectomy Cataract extraction and insertion of intraocular lens Esophageal dilatation History of - surgery History of - surgery History of - surgery (12/07/14) History of - surgery ( 07/2013) History of colonoscopy ( 2009) History of hysterectomy Status post carpal tunnel release Status post tonsillectomy Family History Mother Hypertension, essential Diabetes Father Heart disease Grandmother No problems noted. Grandmother No problems noted. Grandfather No problems noted. Grandfather No problems noted. Social History (Updated 02/07/21 @ 10:33 by Coby Marcelo MD) Does the Patient have a Healthcare Proxy: Yes Does Patient have a DNR?: No Does Patient have a Living Will?: Yes Does the Patient have a MOLST?: No Advance Directives on File or in chart?: No household members: spouse marital status: lives independently: Yes current occupational status: retired pets and animals: No Hx Recent Travel (where): No curr ent gender identity: female Smoking Status: Never smoker alcohol intake: never substance use type: does not use seatbelt use: always working smoke detector in home: Yes fire extinguisher in home: Yes Review of Systems Const Denies anorexia, Reports difficulty sleeping, Denies headache(s) and Reports stops breathing during sleep Eyes Denies blurry vision, Denies loss of vision and Reports requires corrective lenses ENT Denies dental pain, Denies headache(s), Denies hearing loss and Denies mouth lesions Card Denies chest pain, Denies pedal edema, Denies dyspnea and Denies dyspnea on exertion Resp Denies cough, Denies pain on inspiration, Denies dyspnea, Denies dyspnea on exertion and Denies wheezing GI Denies hematochezia, Reports constipation and Denies heartburn Genitourinary: Denies dysuria Musc Reports back pain and Reports radiating pain into limb Skin/Breast Denies rash Neuro Denies headache(s), Denies loss of vision and Denies convulsions Psych Reports abnormal sleep pattern, Denies anxiety and Denies depression (lost her grandson last month) José Miguel/Lymph Denies easy bruising Aller/Immun Denies urticaria and Denies wheezing Exam Const General: cooperative, healthy appearing, comfortable, no acute distress, well developed, well groomed and well hydrated Nutritional Appearance: obese Orientation: alert, awake and oriented x3 HENMT Head: normal to inspection and normocephalic Ears: external ears normal, TM's normal bilaterally and EAC's normal General nose exam: external nose normal, nares normal and no nasal discharge Face and sinus: normal facial exam Mouth: oral mucosae normal, lip normal, tongue normal, oropharynx normal and moist mucous membranes Teeth and gingiva: gingiva normal Throat: posterior oropharynx normal Eyes Alignment and Position: alignment normal Eyelids: eyelids normal Conjunctivae: conjunctivae normal EOM: EOM intact bilaterally Neck Neck: normal visual inspection, full ROM, no lymphadenopathy, trachea midline and supple Neck mass: No Thyroid: thyroid normal Resp Effort Inspection: normal respiratory effort, no cough and not labored Auscultation: clear to auscultation bilaterally Cardio Palpation: normal PMI Rate: regular rate Rhythm: regular rhythm Heart Sounds: S1 normal and S2 normal GI Inspection: Yes normal to inspection Palpation: soft, no hepatosplenomegaly and nontender Skin Lesions: no lesions Rashes: no rashes Wounds: no wounds Hair: normal Nails: normal Neuro General: patient alert, patient awake, patient oriented x3, gait normal, tone normal and moves all extremities Extrem General: normal to inspection, capillary refill normal, no joint enlargement and no pedal edema Psych Appearance: grossly normal and well kempt Mental Status: mental status grossly normal Speech and Movement: speech and movement normal Mood: congruent mood Affect: normal affect Attitude: cooperative Thought Process: normal Thought Content: normal Assessment Plan Assessment Plan (1) Pre-Operative Examination: Code(s): Z01.818 - Encounter for other preprocedural examination Plan: She has no acute cardiac issues, but because of her history, I would like her to get a nuclear stress done before the procedure.If that is good, then she should get this done as scheduled. (2) Breast cancer: Status: Acute Code(s): C50.919 - Malignant neoplasm of unspecified site of unspecified female breast SNOMED Code(s): 367702774 Category: Medical (3) Obstructive sleep apnea, adult: Status: Chronic SNOMED Code(s): 2529978098296 Category: Medical (4) Coronary artery disease involving [place] coronary artery of [place] heart without angina pectoris: Status: Chronic Onset Date: 08/11/11 Code(s): I25.10 - Atherosclerotic heart disease of [place] coronary artery without angina pectoris SNOMED Code(s): 908965949 Category: Medical (5) Diabetes mellitus type 2 in obese: Status: Chronic Onset Date: 08/11/11 Code(s): E11.69 - Type 2 diabetes mellitus with other specified complication; E66.9 - Obesity, unspecified SNOMED Code(s): 77576349 Category: Medical Plan: last A1c 6.6 (6) Hypertension: Status: Chronic Code(s): I10 - Essential (primary) hypertension SNOMED Code(s): 88250834 Category: Medical Qualifiers: Hypertension type: essential hypertension Qualified Code(s): I10 - Essential (primary) hypertension (7) Diabetic peripheral neuropathy associated with type 2 diabetes mellitus: Status: Chronic Code(s): E11.42 - Type 2 diabetes mellitus with diabetic polyneuropathy SNOMED Code(s): 2590513824208 Category: Medical Medications: New diclofenac sodium 1% (Voltaren Arthritis Pain) apply to single elbow, wrist or hand; for hand includes palm/fingers/back of hand 2 grams topical QID 100 grams 2RF Orders Instructions: DASH Eating Plan (GEN) Hypertension (GEN) Coding Level of Care Code 49472 Est Pt Intermediate Comp Diagnoses Pre- Operative Examination Z01.818 Breast cancer C50.919 Diabetic peripheral neuropathy associated with type 2 diabetes mellitus E11.42 Obstructive sleep apnea, adult G47.33 Coronary artery disease involving [place] coronary artery of [place] heart without angina pectoris I25.10 Diabetes mellitus type 2 in obese E11.69; E66.9 Hypertension I10 Hypertension type: essential hypertension Additional Codes Intake - Is patient in pain?: Yes (1125F) <Electronically signed by Coby Marcelo MD> 06/13/21 1839 Name Value Range Interpretation Code Description Data Donna rce(s) Supporting Document(s) ID Date Data Source [id number] 06/11/2021 02:44:00 PM EDT [facility] [address] [place] [address] [phone] NAME SEX PT STATUS ACCOUNT NUMBER MICHELLE RAJAN REG REF [id number] ORDERING PHYSICIAN LOCATION MEDICAL RECORD NO. Coby Marcelo MD EKG [id number] ATTENDING PHYSICIAN DATE OF DATE OF EXAM/TIME Coby Marcelo MD 1945 06/11/211437 TYPE / EXAM Xray Chest 2 view PA/LAT REASON FOR EXAM preop clearance for mastectomy Chest x ray History provided by ordering clinician or staff: [facility] preop clearance for mastectomy Note: This report was generated using voice recognition software which may occasionally result in incorrect words, misspellings, and gaps. Views: 2 Comparison: None FINDINGS: Heart: Unremarkable Mediastinum, maurice and vasculature: Unremarkable Lungs and pleura: Clear lungs. No infiltrates or effusions Osseous: Previous left shoulder surgery Additional Comments: Degenerative changes dorsal spine Follow up: Recommend follow up if symptoms persist. IMPRESSION: No acute pulmonary abnormality. Thank you for allowing us to participate in the care of your patient. Reported By Enrrique Smith MD on 06/11/211443 Signed By Enrrique Smith MD on 06/11/211444 Date Time CC: Coby Marcelo MD; Enrrique Smith Techn: CUMME Trans Dt/Tm: Trans by: DT Prt Dt/Tm: [id number]: Total DLP = 0.00 mGy-cm Fluoroscopy Time (in secs): Name Value Range Interpretation Code Description Data Donna rce(s) Supporting Document(s) ID Date Data Source [id number] 06/05/2021 03:24:00 PM EDT [facility] Patient Name: MICHELLE RAJAN : 1945 Sex: F Pt Unit #: [id number] Location:[facility] Provider: Visit Date/Time: 06/05/21 Primary Insurance: MEDICARE [employer] Secondary Insurance: [employer] Intake Nurse Note Intake Visit Reasons: Flu shot Nurse Note: Pt presents today for her flu shot. Pt tolerated well. Accompanied by: Coronavirus Screening Screening Are you currently positive or on isolation for COVID ?: No Do you have any NEW signs of one or more of the following?: no symptoms Do you have NEW signs of at least two of the following?: no symptoms Immunizations flu vac 36mos up(PF) Performing Provider: Mio Mcduffie DO Administered by: Mica Porras on 06/05/21 15:25 Dose Route Admin Location Lot Number Expiration Date NDC Manufactu rer 0.5 mL IM Right arm [id number] 02/27/22 09882-204-15 [employer] VIS Given Date VIS Provided VIS Pu blication Date 06/05/21 Single Vaccine 21 Eligibility Eligibility Date Funding Source Not VFC Eligible 06/05/21 Private Assessment Plan Assessment Plan Orders: Orders INJ - Influenza Vaccine Today Z23 - Encounter for immunization <Electronically signed by Mio Mcduffie DO> 06/05/21 1803 Name Value Range Interpretation Code Description Data Donna rce(s) Supporting Document(s) ID Date Data Source WWBC EXTREMITY NON VASC LIMITED 06/04/2021 12:00:00 AM EDT e CW1 ([facility]ly [facility]) Name Value Range Interpretation Code Description Data Donna rce(s) Supporting Document(s) WWBC EXTREMITY NON VASC LIMITE D eCW1 (Formerly [facility]) ID Date Data Source Breast Bilat with and w/o Cont PLZ or SMC 05/31/2021 12:00:0 0 AM EDT eCW1 ([facility]) Name Value Range Interpretation Code Description Data Donna rce(s) Supporting Document(s) Breast Bilat with and w/o Cont PLZ or SMC eCW1 ([facility]) ID Date Data Source [id number] 05/24/2021 10:53:00 AM EDT [facility] Name Value Range Interpretation Code Description Data Donna rce(s) Supporting Document(s) Leukocytes [#/volume] in Blood by Automated count 7.9 10*3/uL 4.45-10 .71 N [facility] Erythrocytes [#/volume] in Blood by Automated count 4.31 10*6/uL 4.20 -5.40 N [facility] Hemoglobin [Moles/volume] in Blood 13.8 g/dL 10.7-15.4 N [facility] Hematocrit [Volume Fraction] of Blood by Automated count 42.7 % 3 7-47 N [facility] Erythrocyte mean corpuscular volume [Ent itic volume] in Cord blood by Automated count 99 fL 80-96 Above high normal [facility] Erythrocyte mean corpuscular hemoglobin [Entitic mass] by Au tomated count 32 pg 27-31 Above high normal [facility] Erythrocyte mean corpuscular hemoglobin concentration [Mass/volume] in Cord blood 32 g/dL 33-37 Below low normal [facility] Erythrocyte distribution width [Entitic volume] by Automated count 13 % 11-15 N [facility] Platelets [#/volume] in Blood by Automated count 215 10*3/uL 130-472 N [facility] Platelet mean volume [Entitic volume] in Blood 10.1 fL 9.1-13.1 N [facility] Neutrophils/100 leukocytes in Blood by Automated count 72.7 % 41- 77 [facility] Neutrophils [#/volume] in Blood by Automated count 5.7 U 1.7-7.6 N [facility] Lymphocytes/100 leukocytes in Blood by Automated count 17.6 % 14- 46 N [facility] Lymphocytes [#/volume] in Blood by Automated count 1.4 U 0.6-4.6 N [facility] Monocytes/100 leukocytes in Blood by Automated count 7.5 % 4-12 N [facility] Monocytes [#/volume] in Blood by Automated count 0.6 U 0.2-1.2 N [facility] Eosinophils/100 leukocytes in Blood by Automated count 1.3 % 0-7 N [facility] Eosinophils [#/volume] in Blood by Automated count 0.1 U 0.0-0.5 N [facility] Basophils/100 leukocytes in Blood by Automated count 0.6 % 0.4-1 .3 N [facility] Basophils [#/volume] in Blood by Automated count 0.1 U 0.0-0.2 N [facility] NUCLEATED RED BLOOD CELL 0 % [facility] NUCLEATED RED BLOOD CELL# 0 U [facility] Immature granulocytes [Presence] in Blood by Automated count 0-2 N [facility] Immature granulocytes [#/volume] in Blood by Automated count 0.0 U 0-0.1 N [facility] Manual Differential panel - Blood NO [facility] ID Date Data Source [id number] 05/24/2021 11:21:00 AM EDT [facility] Name Value Range Interpretation Code Description Data Donna rce(s) Supporting Document(s) Urea nitrogen [Mass/volume] in Serum or Plasma 22 mg/dL 9-23 N [facility] Sodium [Moles/volume] in Serum or Plasma 144 mmol/L 132-146 N [facility] Potassium [Moles/volume] in Serum or Plasma 4.0 mmol/L 3.5-5.5 [facility] Chloride [Moles/volume] in Serum or Plasma 108 mmol/L 99-109 [facility] Carbon dioxide, total [Moles/volume] in Serum or Plasma 29 mmol/L 20 -31 N [facility] Anion gap in Serum or Plasma 11 mmol/L 8-16 N [facility] Glucose [Mass/volume] in Serum or Plasma 89 mg/dL 74-106 N [facility] Creatinine 0.7 mg/dL 0.5-1.1 [facility] Glomerular filtration rate/1.73 sq M.pre dicted [Volume Rate/Area] in Serum or Plasma Greater Than 60 ABOVE 60 [facility] Alanine aminotransferase [Enzymatic acti vity/volume] in Serum or Plasma by With P-5'-P 26 U/L 10-49 N [facility] ital Aspartate aminotransferase [Enzymatic ac tivity/volume] in Serum or Plasma by With P-5'-P 11 U/L 0-33 N [facility] pital Alkaline phosphatase [Enzymatic activity/volume] in Serum or Plasma 68 U/L 45-129 N [facility] Calcium [Mass/volume] in Serum or Plasma 9.2 mg/dL 8.5-10.1 N [facility] Bilirubin.total [Mass/volume] in Serum or Plasma 0.7 mg/dL 0.3-1.2 N [facility] Albumin [Mass/volume] in Serum or Plasma by Bromocresol purple (BCP) dye binding method 3.5 g/dL 3.2-4.8 N [facility] ital Protein [Mass/volume] in Serum or Plasma 6.9 g/dL 5.7-8.2 [facility] ID Date Data Source [id number] 05/09/2021 08:58:00 AM EDT [facility] Patient Name: MICHELLE RAJAN : 1945 Sex: F Pt Unit #: [id number] Location:[facility] Provider: Visit Date/Time: 05/09/21 Primary Insurance: MEDICARE [employer] Secondary Insurance: [employer] Intake Vital Signs 05/09/21 09:02 Current Height 4 ft 6.75 in Current Weight 229 lb BMI 53.6 BP 130/90 Position Sitting Respiration 16 Pulse 54 L Pulse Source Pulse Oximeter Pulse Oximetry (%) 94 Oxygen Delivery Method room air Intake Visit Reasons: Biopsy Follow Up Nurse Note: breast biopsy results. Development Scientist Required: No Is patient in pain?: No Allergies propofol Allergy (Severe, Unverified 05/26/19 11:35) Wheezing, high blood pressure, diarrhea latex [Latex] Allergy (Unknown, Unverified 12/24/17 09:58) nitroglycerin [Nitroglycerin] Allergy (Unknown, Unverified 12/24/17 09:58) Penicillins Allergy (Unknown, Unverified 12/24/17 09:58) Sulfa (Sulfonamide Antibioti cs) Allergy (Unknown, Unverified 12/24/17 09:58) fish oil Adverse Reaction (Unverified 11/11/18 13:44) diarrhea HIV Testing Offer - ages 13-64 Requirement for HIV testing offer been met?: Not in age range Coronavirus Screening Screening Are you currently positive or on isolation for COVID ?: No Do you have any NEW signs of one or more of the following?: no symptoms Do you have NEW signs of at least two of the following?: no symptoms HPI Additional HPI HPI Details: [facility] and [facility] are willing to do the lumpectomy with their surgeon, but she is thinking she would like to go down to [facility]. She sees Dr. Mayorga and Dr. Dianefor her back and is getting injections there she had lab work done which I do not have available yet. [facility] Medical History (Updated 05/02/21 @ 20:18 by Coby Marcelo MD) Acute myocardial infarction Allergic rhinitis Asthma Benign esophageal stricture Chronic low back pain Chronic osteoart hritis Chronic urticaria Coronary arteriosclerosis Degeneration of intervertebral disc Diabetes mellitus type 2 in obese (08/11/11) Eczema Edema Gastroesophageal reflux disease with esophagitis (11/11/18) Hiatal hernia hx of stroke Hypertension, essential Lichen simplex chronicus Mixed hyperlipidemia (08/11/11) Obesity Obstructive sleep apnea, adult Polyp of colon Restless legs Right rotator cuff tendinitis (11/12/16) Stasis dermatitis Stress incontinence in female Varicose veins of lower extremity with inflammation Surgical History (Updated 11/02/19 @ 14:55 by Coby Marcelo MD) Appendectomy Cataract extraction and insertion of intraocular lens Esophageal dilatation History of - surgery History of - surgery History of - surgery (12/07/14) History of - surgery ( 07/2013) History of colonoscopy ( 2009) History of hysterectomy Status post carpal tunnel release Status post tonsillectomy Family History Mother Hypertension, essential Diabetes Father Heart disease Grandmother No problems noted. Grandmother No problems noted. Grandfather No problems noted. Grandfather No problems noted. Social History (Updated 02/07/21 @ 10:33 by Coby Marcelo MD) Does the Patient have a Healthcare Proxy: Yes Does Patient have a DNR?: No Does Patient have a Living Will?: Yes Does the Patient have a MOLST?: No Advance Directives on File or in chart?: No household members: spouse marital status: lives independently: Yes current occupational status: retired pets and animals: No Hx Recent Travel (where): No current gender identity: female Smoking Status: Never smoker alcohol intake: never substance use type: does not use seatbelt use: always working smoke detector in home: Yes fire extinguisher in home: Yes Assessment Plan Assessment Plan (1) Status post biopsy: Code(s): Z98.890 - Other specified postprocedural states Additional Comments Additional Comments: Greater than 30 minutes was spent discussing her options. I think the best option is a lumpectomy with her surgeon and then discussion as to whether she should have radiation or medication for lymphnode dissection based on how the surgeon and the oncologist feel. Will try to get her results from her orthopedic surgeon. Orders Follow Up: 2 Months Time spent Total time spent on medical discussion: 35 Coding Level of Care Code Estab lished Pt Estab Pt Lvl 3 (20-29 min) Patient Type Established Diagnoses Status post biopsy Z98.890 Additional Codes Intake - Is patient in pain?: No (1126F) <Electronically signed by Coby Marcelo MD> 05/09/211948 Name Value Range Interpretation Code Description Data Donna rce(s) Supporting Document(s) ID Date Data Source [id number] 05/02/2021 01:22:00 PM EDT [facility] Name Value Range Interpretation Code Description Data Donna rce(s) Supporting Document(s) CREAT 0.7 mg/[id number] 0.6-1.3 [facility] GFR > 60 ml/min/[id number] > 60 [facility] If patient is multiply result by 1.212 ID Date Data Source [id number] 05/02/2021 01:22:00 PM EDT [facility] Name Value Range Interpretation Code Description Data Donna rce(s) Supporting Document(s) BUN 22 mg/dL 7-25 [facility] ID Date Data Source [id number] 05/02/2021 02:02:00 PM EDT [facility] Name Value Range Interpretation Code Description Data Donna rce(s) Supporting Document(s) HBA1C 6.5 %0x0D0A 4.0-5.7 [facility] EAG 140 MG/[id number] 70-110 [facility] ID Date Data Source [id number] 04/22/2021 04:07:00 PM EDT [facility] Pathology ReportName: Scott RAJANMRN: [id number] Number: [id number] Date: 04/19/2021 00:00Received Date: 04/19/2021 14:56Physician(s): Bert MARCELO MD ADJAPONG, OPOKU, MDSpecimen(s) ReceivedA: Material received for consultation, [facility], [id number] HistoryDo [place], [place], and HER2. So FISH if HER2 is equivocal. DiagnosisIMMUNOHISTOCHEMISTRY, RIGHT BREAST, BIOPSY (OUTSIDE CASE [id number] A2,04/16/21): ESTROGEN RECEPTORS: Positive (strong, 90%).PROGESTERONE RECEPTORS: Positive (moderate to strong, 80%).HER2: Negative (0). Electronically Signed By Kirt Christensen M.D., Attending Pathologist04/22/2021 16:07:46 Unless 'gross-only' is specified, the final diagnosis is based on amicroscopic examination of mortician supplies sales representative sections of tissue.Gross DescriptionReceived from [facility] in [place], [place], is 1 paraffinblock, labeled [id number], with the corresponding pathology report. This report may include one or more immunohistochemical stain results thatuse analyte specific reagents. All positive and negative controls havebeen reviewed by the attending pathologist and are satisfactory. The testswere developed and their performance character istics determined by [facility] Pathology department. They have not been cleared or approved by the USFood and Drug Administration. The FDA has determined that such clearanceor approval is not necessary. Name Value Range Interpretation Code Description Data Donna rce(s) Supporting Document(s) ID Date Data Source [id number] 04/09/2021 09:49:00 AM EDT [facility] Patient Name: MICHELLE RAJAN : 1945 Sex: F Pt Unit #: [id number] Location:[facility] Provider: Visit Date/Time: 04/09/21 Primary Insurance: MEDICARE UPSTATE Secondary Insurance: AAR ADDENDUM Called her with her biopsy results. She has breast cancer and should see a surgeon to discuss lumpectomy. I am not sure whether [facility] is going to arrange that or not, but told her that we would if they did not. <Electronically signed by Coby Marcelo MD> 05/02/212020 Intake Vital Signs 04/09/21 09:57 Current Height 4 ft 6.75 in Current Weight 228 lb BMI 53.4 BP 102/70 Position Sitting Respiration 16 Pulse 57 L Pulse Source Pulse Oximeter Pulse Oximetry (%) 93 Oxygen Delivery Method room air Intake Visit Reasons: Breast complaints Nurse Note: H P needed within 30 days for breast biopsy on ?04/16/[address] [facility] in [place]. Development Scientist Required: No Is patient in pain?: Yes Allergies propofol Allergy (Severe, Unverified 05/26/19 11:35) Wheezing, high blood pressure, diarrhea latex [Latex] Allergy (Unknown, Unverified 12/24/17 09:58) nitroglycerin [Nitroglycerin] Allergy (Unknown, Unverified 12/24/17 09:58) Penicillins Allergy (Unknown, Unverified 12/24/17 09:58) Sulfa (Sulfonamide Antibiotics) Allergy (Unknown, Unverified 12/24/17 09:58) fish oil Adverse Reaction (Unverified 11/11/18 13:44) diarrhea Post menopausal: Yes HIV Testing Offer - ages 13-64 Requirement for HIV testing offer been met?: Not in age range Coronavirus Screening Screening Are you currently positive or on isolation for COVID ?: No Do you have any NEW signs of one or more of the following?: no symptoms Do you have NEW signs of at least two of the following?: no symptoms HPI Additional HPI HPI Details: She continues to lose weight gradually by eating sensibly. She has a lot of stress with her son's and 's issues. Her blood pressure is lower. She does not need the detrol since her procedure. She is going to see a [facility] for a breast ultrasound on April 16 and then her procedure on April 29. Pre-Operative H P Surgery Information Proposed Surgical Procedure: breast biopsy Date of surgery: 04/29/21 Anesthesia: general Exercise tolerance Can climb one flight of stairs (12-13 steps) in less than 30 seconds without stopping and without symptoms: Yes Distance able to walk (blocks): limited by back pain Risk factors Pulmonary risk factors: age > 60 Active cardiac conditions: none Active risk factors: hx of diabetes mellitus Workup: stress testing indicated Sleep apnea risks: Yes Pertinent Past History Medical History: Coronary artery disease, Diabetes mellitus (last A1c 6.6), Hypertension and Sleep Apnea Previous surgical complications: No Previous anesthesia intolerance: Yes (proprofol ) Steroid use in last 6 months: Yes (epidural steroids) Allergies to meds or foods: Yes Pertinent Family History Family hx adverse reaction to anesthesia: No Family history coagulopathy: No Menstrual History Menopausal?: Yes Surgical Risk Surgical risk for this patient: Intermediate [facility] Medical History (Updated 04/09/21 @ 18:11 by Coby Marcelo MD) Acute myocardial infarction Allergic rhinitis Asthma Benign esophageal stricture Chronic low back pain Chronic osteoarthritis Chronic urticaria Coronary arteriosclerosis Degeneration of intervertebral disc Diabetes mellitus type 2 in obese (08/11/11) Eczema Edema Gastroesophageal reflux disease with esophagitis (11/11/18) Hiatal hernia hx of stroke Hypertension, essential Lichen simplex chronicus Mixed hyperlipidemia (08/11/11) Obesity Obstructive sleep apnea, adult Polyp of colon Restless legs Right rotator cuff tendinitis (11/12/16) Stasis dermatitis Stress incontinence in female Varicose veins of lower extremity with inflammation Surgical History (Updated 11/02/19 @ 14:55 by Coby Marcelo MD) Appendectomy Cataract extraction and insertion of intraocular lens Esophageal dilatation History of - surgery History of - surg billie History of - surgery (12/07/14) History of - surgery ( 07/2013) History of colonoscopy ( 2009) History of hysterectomy Status post carpal tunnel release Status post tonsillectomy Family History Mother Hypertension, essential Diabetes Father Heart disease Grandmother No problems noted. Grandmother No problems noted. Grandfather No problems noted. Grandfather No problems noted. Social History (Updated 02/07/21 @ 10:33 by Coby Marcelo MD) Does the Patient have a Healthcare Proxy: Yes Does Patient have a DNR?: No Does Patient have a Living Will?: Yes Does the Patient have a MOLST?: No Advance Directives on File or in chart?: No household members: spouse marital status: lives independently: Yes current occupational status: retired pets and animals: No Hx Recent Travel (where): No current gender identity: female Smoking Status: Never smoker alcohol intake: never substance use type: does not use seatbelt use: always working smoke detector in home: Yes fire extinguisher in home: Yes Sickle cell Sickle Cell Screening:: Not indicated Review of Systems Musc Reports back pain (chronic) Exam Const General: cooperative, healthy appearing, comfortable, no acute distress, well developed, well groomed and well hydrated Nutritional Appearance: obese morbidly obese Orientation: alert, awake and oriented x3 Neck Neck: normal visual inspection, full ROM, no lymphadenopathy, trachea midline and supple Neck mass: No Thyroid: thyroid normal Resp Effort Inspection: normal respiratory effort, no cough and not labored Auscultation: clear to auscultation bilaterally Cardio Palpation: normal PMI Rate: regular rate Rhythm: regular rhythm Heart Sounds: S1 normal and S2 normal GI Inspection: Yes normal to inspection Palpation: soft, no hepatosplenomegaly and nontender Skin Lesions: lesion noted (left ankle red area with thin skin) Rashes: no rashes Wounds: no wounds Hair: normal Nails: normal Neuro General: patient alert, patient awake, patient oriented x3, tone normal and moves all extremities Extrem General: normal to inspection, capillary refill normal, no joint enlargement and no pedal edema Psych Appearance: grossly normal and well kempt Mental Status: mental status grossly normal Speech and Movement: speech and movement normal Mood: congruent mood Affect: normal affect Attitude: cooperative Thought Process: normal Thought Content: normal Assessment Plan Assessment Plan (1) Mammogram abnormal: Status: Acute Code(s): R92.8 - Other abnormal and inconclusive findings on diagnostic imaging of breast SNOMED Code(s): 866791126 Category: Medical Plan: should have biopsy under guidance (2) Stasis dermatitis: Status: Chronic SNOMED Code(s): 24908319 Category: Medical Plan: healing. minimize steroids (3) Obstructive sleep apnea, adult: Status: Chronic SNOMED Code(s): 7497796154910 Category: Medical Plan: should use CPAP nightly (4) Diabetes mellitus type 2 in obese: Status: Chronic Onset Date: 08/11/11 Code(s): E11.69 - Type 2 diabetes mellitus with other specified complication; E66.9 - Obesity, unspecified SNOMED Code(s): 83707731 Category: Medical Plan: doing well (5) Hypertension: Status: Chronic Code(s): I10 - Essential (primary) hypertension SNOMED Code(s): 73630336 Category: Medical Qualifiers: Hypertension type: essential hypertension Qualified Code(s): I10 - Essential (primary) hypertension Plan: will decrease hydralazine to 12.5 and see her back Plan: Since she cannot be adequately evaluated for exercise tolerance, will get nuclear stress prior to the procedure. Orders: Orders CMP 2 Weeks E11.69 - Type 2 diabetes mellitus with other specified complication, E66.9 - Obesity, unspecified, E78.2 - Mixed hyperlipidemia, I10 - Essential (primary) hypertension CBC W AUTO DIFF 2 Weeks E11.69 - Type 2 diabetes mellitus with other specified complication, E66.9 - Obesity, unspecified, E78.2 - Mixed hyperlipidemia, I10 - Essential (primary) hypertension NM Nuclear Stress Test 1 Week I25.10 - Atherosclerotic heart disease of [place] coronary artery without angina pectoris Medications: Changed 2 From hydralazine 25 mg PO DAILY 90 tabs 1RF hypertension To hydralazine 12.5 mg (1/2 x 25 mg) PO DAILY 90 tabs 1RF hypertension From omeprazole 40 mg PO QDAY 90 caps 1RF To omeprazole 20 mg PO QDAY 90 caps 1RF Orders Instructions: DASH Eating Plan (GEN) Hypertension (GEN) Follow Up: 6 Months Coding [place] [address] Est Pt Extended Comp Patient Type Established Diagnoses Mammogram abnormal R92.8 Stasis dermatitis I87.2 Obstructive sleep apnea, adult G47.33 Diabetes mellitus type 2 in obese E11.69; E66.9 Hypertension I10 Hypertension type: essential hypertension <Electronically signed by Coby Marcelo MD> 04/09/21 1814 Name Value Range Interpretation Code Description Data Donna rce(s) Supporting Document(s) ID Date Data Source [id number] 03/15/2021 11:21:00 AM EDT [facility] [address] [place] [address] [phone] NAME SEX PT STATUS ACCOUNT NUMBER MICHELLE RAJAN REG REF [id number] ORDERING PHYSICIAN LOCATION MEDICAL RECORD NO. Coby Marcelo MD [id number] ATTENDING PHYSICIAN DATE OF DATE OF EXAM/TIME Coby Marcelo MD 1945 03/15/211027 TYPE / EXAM US Breast - Limited Unilat REASON FOR EXAM RT BREAST MASS CLINICAL HISTORY: [facility] RT BREAST MASS COMPARISON: Mammogram March 06, 2021 Multiple images of the right breast at the 42 7:00 location were obtained, encompassing the area of clinical concern. FINDINGS: No cystic or solid mass identified. IMPRESSION: No sonographic correlation to the right breast mass in the mammogram. Stereotactic biopsy is recommended. OVERALL FINAL ASSESSMENT OF FINDINGS BI-RADS 4 - Suspicious Abnormality Reported By Rahul Brasher MD on 03/15/21 112 Signed By Rahul Brasher MD on 03/15/21 1123 Date Time CC: Rahul Brasher M.D.; Coby Marcelo MD Techn: TABSA Trans Dt/Tm: Trans by: DT Prt Dt/Tm: : Total DLP = 0.00 mGy-cm : Total Radiation Dose = 0.0000 mSv Lifetime Dose: 0 mSv Name Value Range Interpretation Code Description Data Donna rce(s) Supporting Document(s) ID Date Data Source [id number] 03/12/2021 08:51:00 AM EDT [facility] [address] [place] [address] [phone] NAME SEX PT STATUS ACCOUNT NUMBER MICHELLE RAJAN PRE REF [id number] ORDERING PHYSICIAN LOCATION MEDICAL RECORD NO. Coby Marcelo MD MAMMO [id number] ATTENDING PHYSICIAN DATE OF DATE OF EXAM/TIME Coby Marcelo MD 1945 03/06/211749 TYPE / EXAM 3D DIG MAMMO SCREEN BILAT REASON FOR EXAM Screening for breast cancer LAST CLINICAL BREAST EXAM: Unknown FIVE YEAR RISK: 1.2% LIFETIME RISK: 2.2% FAMILY HISTORY OF BREAST CARCINOMA: None COMPARISON: August 15, 2019 2D bilateral digital mammogram in the CC and MLO projections was performed with supplemental 3D tomosynthesis of both breasts. FINDINGS: Craniocaudad and oblique lateral views of the breasts were obtained. The breasts are predominately fatty replaced There is a spiculated appearing mass within the right breast at the 5 to 6:00 position posterior depth measuring 11 mm which was not previously present. There are bilateral calcifications which arestable. IMPRESSION: Suspicious mass in the right breast at the 5 to 6:00 position which needs follow-up with ultrasound. OVERALL FINAL ASSESSMENT OF FINDINGS BI-RADS 0 - Incomplete: Needs Additional Imaging Evaluation. OVERALL FINAL ASSESSMENT OF THE BREAST COMPOSITION Breast Density Classification: A Description: The breasts are almost entirely fatty. Note: for findings of BIRADS 0, our office will contact the patient to arrange further mammographicand/or ultrasound imaging as needed. If MRI is recommended, this should be ordered and scheduled by the ordering provider's office. This mammogram was read with the assistance of M-Kredits, an FDA-approved computer- aided detection system for mammography. Reported By Rahul Brasher MD on 03/12/21 0851 Signed By Rahul Brasher MD on 03/12/21 0855 Date Time CC: Rahul Brasher M.D.; Coby Marcelo MD Techn: CUMME Trans Dt/Tm: Trans by: DT Prt Dt/Tm: : Total DLP = 0.00 mGy-cm : Total Radiation Dose = 0.0000 mSv Lifetime Dose: 0 mSv Name Value Range Interpretation Code Description Data Donna rce(s) Supporting Document(s) ID Date Data Source [id number] 03/09/2021 12:31:00 PM EDT [facility] [address] [place] [address] [phone] NAME SEX PT STATUS ACCOUNT NUMBER MICHELLE RAJAN REG REF [id number] ORDERING PHYSICIAN LOCATION MEDICAL RECORD NO. Kamlesh Malin MRI [id number] ATTENDING PHYSICIAN DATE OF DATE OF EXAM/TIME Coby Marcelo MD 1945 03/06/211658 TYPE / EXAM MRI Lumbar w w/o contrast REASON FOR EXAM FAILED BACK SURGICAL SYNDROME Clinical History/Indication for Exam: FAILED BACK SURGICAL SYNDROME MR LUMBAR SPINE WITHOUT AND WITH INTRAVENOUS CONTRAST INDICATION: FAILED BACK SURGICAL SYNDROME TECHNIQUE: Magnetic resonance images of the lumbar spine without and with intravenous contrast in multiple planes. COMPARISON: MRI lumbar spine from . FINDINGS: The lowermost fully formed intervertebral disc space will be labeled L5-S1. No compression fractures. Degenerative changes along the articulating endplates of L4-L5. Multifocal hemangiomas and bone islands. Lower thoracic cord is unremarkable. Conus medullaris demonstrates normal signalintensity and morphology, terminates at T12-L1 level. Included soft tissues of the abdomen pelvis are without acute findings. Degenerative changes in the sacroiliac joints. Changes suggestive of previous right hemilaminectomy at L5-S1 level. Postsurgical changes in the soft tissues of the lower back. Postcontrast enhancement demonstrate no definite abnormal areas of epidural or intrathecalenhancement. No focal areas of enhancement involving the osseous structures identified. At T12-L1, disc protrusion and facet arthropathy. No significant stenosis. At L1-L2, bro ad-based disc protrusion and facet arthropathy. No significant canal stenosis. Mild to moderate bilateral foraminal stenosis, right greater than left. At L2-L3, broad-based circumferential disc protrusion, epidural lipomatosis, ligamentum flavum thickening and facet arthropathy. Mild spinal canal stenosis. Moderate to severe left and severe right foraminal stenosis. Mild to moderate lateral recess stenosis. At L3-L4, broad-based circumferential disc protrusion, eccentric to the left, epidural lipomatosis,ligamentum flavum thickening and facet arthropathy. Moderate spinal canal stenosis, moderate to severe right and severe left foraminal stenosis. Moderate lateral recess stenosis. At L4-5, broad-based circumferential disc protrusion, ligamentum flavum thickening and facet arthropathy. No significant spinal canal stenosis. Severe bilateral foraminal stenosis, worse on the right. Moderate bilateral recess stenosis. There is small right lateral recess disc extrusion measuring 3 mm, causing mass-effect on the traversing right L5 nerve root. Correlate with radicularsymptoms. At L5-S1, broad-based disc protrusion and facet arthropathy. Changes suggestive of previous right hemilaminectomy. No significant canal stenosis. Mild left foraminal stenosis. Moderate right foraminal stenosis. Impression: Multilevel spondylitic changes in the lumbar spine, described level by level above. Findings have progressed since 2017. Contrast Type: gadavist. Contrast Volume: 5ml REPORT SIGNATURE ON FILE 03/09/2021 (12:31 Eastern Time ) Signed by: Tuyet Hinkle M.D. Reported By Tuyet Hinkle MD on 03/09/21 1231 Signed By Tuyet Hinkle MD on 03/09/21 1231 Date Time CC: Coby Marcelo MD; Tuyet Hinkle MD Techn: Raghavendra NOBLE Trans Dt/Tm: Trans by: HARSHAD Prt Dt/Tm: : Total DLP = 0.00 mGy-cm : Total Radiation Dose = 0.0000 mSv Lifetime Dose: 0 mSv Name Value Range Interpretation Code Description Data Donna rce(s) Supporting Document(s) ID Date Data Source [id number] 03/06/2021 04:09:00 PM EDT [facility] Name Value Range Interpretation Code Description Data Donna rce(s) Supporting Document(s) Urea nitrogen [Mass/volume] in Serum or Plasma 20 mg/dL 9-23 N [facility] ID Date Data Source [id number] 03/06/2021 04:09:00 PM EDT [facility] Name Value Range Interpretation Code Description Data Donna rce(s) Supporting Document(s) Creatinine 1.1 mg/dL 0.5-1.1 N [facility] Glomerular filtration rate/1.73 sq M.pre dicted [Volume Rate/Area] in Serum or Plasma 48 ml/min ABOVE 60 [facility] ital ID Date Data Source [id number] 02/13/2021 02:23:36 PM EDT [facility] Exam: DX LUMB COMP W BEND VIEWS Clinica l History: Low Back Pain Comparison: 02/18/2017 Findings: 6 views of the lumbar spine with bending views aresubmitted. Vertebral body height and alignment is maintained from L1 through L5.There is worsening degenerative narrowing of the L4-L5 disc space. No instability is noted on bending views. Facet joints and SI joints are congruent. Impression: Worsening degenerative change at L4-L5 withoutinstability. Patient Name: Corrie RAJAN Date: 02/13/2021 14:18:00Requested By: KAMLESH MALIN NPTranscribed By: NIRAV BEAUCHAMP MDSigned By: NIRAV BEAUCHAMP MD on 02/13/2021 14:21:00 Name Value Range Interpretation Code Description Data Donna rce(s) Supporting Document(s) ID Date Data Source [id number] 02/07/2021 12:07:00 PM EDT [facility] Name Value Range Interpretation Code Description Data Donna rce(s) Supporting Document(s) Hemoglobin A1c [Mass/volume] in Blood 6.6 % 3.8-5.6 Above hig h normal [facility] The following ranges may be u sed for interpretation of results: HGBA1C degree of glucose control: Greater than 8%: Action Suggested * Less than 7%: Goal of Diabetic Therapy Less than 5.6%: NormalFactors such as duration of diabetes, adherence to therapyand the age of the patient should also be considered inassessing the degree of blood glucose control.* High risk of developing half-way complications such asretinopathy, nephropathy, neuropathy, cardiopathy, etc. Some danger of hypoglycemic reaction in Type I diabetics.Some glucose intolerant individuals and "Sub Clinical"diabetics may demonstrate HGBA1C levels in this area. Glucose mean value [Moles/volume] in Blood Estimated f rom glycated hemoglobin 143 mg/dL [facility] l An A1C of 7% - the goal of diabetic ther apy - is equivalentto an EAG of 154 mg/dl. ID Date Data Source [id number] 02/07/2021 10:00:00 AM EDT [facility] Patient Name: MICHELLE RAJAN : 1945 Sex: F Pt Unit #: [id number] Location:[facility] Provider: Visit Date/Time: 02/07/21 Primary Insurance: MEDICARE [employer] Secondary Insurance: AARP Intake Vital Signs 02/07/21 10:13 Current Height 4 ft 6.75 in Current Weight 235 lb BMI 55.0 BP 140/80 Position Sitting Respiration 16 Pulse 60 Pulse Strength Normal Pulse Source Pulse Oximeter Pulse Oximetry (%) 97 Oxygen Delivery Method room air Intake-Medicare Annual Visit Reasons: Medicare Annual Wellness subsequent Nurse Note: MEDICARE ANNUAL SUBSEQ. NO NEW CONCERNS. HAS NOTED MORE BACK PAIN. HAS CONTACTED PAIN MANAGEMENT AT [facility] TO LOOK INTO IT MORE. Development Scientist Required: No Is patient in pain?: Yes Pain scale (1-10): 7 Allergies propofol Allergy (Severe, Unverified 05/26/19 11:35) Wheezing, high blood pressure, diarrhea latex [Latex] Allergy (Unknown, Unverified 12/24/17 09:58) nitroglycerin [Nitroglycerin] Allergy (Unknown, Unverified 12/24/17 09:58) Penicillins Allergy (Unknown, Unverified 12/24/17 09:58) Sulfa (Sulfonamide Antibiotics) Allergy (Unknown, Unverified 12/24/17 09:58) fish oil Adverse Reaction (Unverified 11/11/18 13:44) diarrhea Medications - Last Reconciled 02/07/21 by Coby Marcelo MD acetaminophen 1,000 mg PO Q4HR atenolol 50 mg PO HS betamethasone, augmented 0.05 % 1 SM.AMT TP BID blood sugar diagnostic (Blood Glucose Test) Test blood glucose levels BID or as directed by physician. Dx E11.9 blood-glucose meter Test blood glucose levels BID or as ordered by physician. DX E11.9 ceramides 1,3,6-II (CeraVe) 1 SM.AMT TP DAILY chlorzoxazone 500 mg PO HS furosemide 20 mg PO DAILY hydralazine 25 mg PO DAILY hydroxyzine HCl 1-2 tabs PO every 6 hours; lancets Test blood glucose levels BID or as directed by physician. Dx E11.9 losartan 50 mg PO QDAY lovastatin 20 mg PO QDAY meloxicam 15 mg PO DAILY metformin 500 mg PO QDAY multivitamin 1 tab PO DAILY omeprazole 40 mg PO QDAY potassium chloride ER (Klor-Con M) 20 mEq PO DAILY ranitidine HCl (Zantac Maximum Strength) 150 mg PO DAILY PRN tacrolimus 0.1% (Protopic) 1 SM.AMT TP DAILY Post menopausal: Yes Fall Risk History of falls: No HIV testing Offer: No Requirement for HIV testing offer been met?: Not in age range SBIRT Annual Questionnaire Are you currently in recovery for alcohol or substance use?: No How many times in the past year have you had 4 or more drinks in a day?: None How many times in the past year have you used a recreational drug or used a prescription medication for nonmedical reasons?: None Coronavirus Screening Screening Are you currently positive or on isolation for COVID ?: No Do you have any NEW signs of one or more of the following?: no symptoms Do you have NEW signs of at least two of the following?: no symptoms [facility] Medical History (Updated 02/07/21 @ 11:18 by Coby Marcelo MD) Acute myocardial infarction Allergic rhinitis Asthma Benign esophageal stricture Chronic low back pain Chronic osteoarthritis Chronic urticaria Coronary arteriosclerosis Degeneration of intervertebral disc Diabetes mellitus type 2 in obese (08/11/11) Eczema Edema Gastroesophageal reflux disease with esophagitis (11/11/18) Hiatal hernia hx of stroke Hypertension, essential Lichen simplex chronicus Mixed hyperlipidemia (08/11/11) Obesity Obstructive sleep apnea, adult Polyp of colon Restless legs Right rotator cuff tendinitis (11/12/16) Stasis dermatitis Stress incontinence in female Varicose veins of lower extremity with inflammation Surgical History (Updated 11/02/19 @ 14:55 by Coby Marcelo MD) Appendectomy Cataract extraction and insertion of intraocular lens Esophageal dilatation History of - surgery History of - surgery History of - surgery (12/07/14) History of - surgery ( 07/2013) History of colonoscopy ( 2009) History of hysterectomy Status post carpal tunnel release Status post tonsillectomy Family History Mother Hypertension, essential Diabetes Father Heart disease Grandmother No problems noted. Grandmother No problems noted. Grandfather No problems noted. Grandfather No problems noted. Social History (Updated 02/07/21 @ 10:33 by Coby Marcelo MD) Does the Patient have a Healthcare Proxy: Yes Does Pat ient have a DNR?: No Does Patient have a Living Will?: Yes Does the Patient have a MOLST?: No Advance Directives on File or in chart?: No household members: spouse marital status: lives independently: Yes current occupational status: retired pets and animals: No Hx Recent Travel (where): No current gender identity: female Smoking Status: Never smoker alcohol intake: never substance use type: does not use seatbelt use: always working smoke detector in home: Yes fire extinguisher in home: Yes Medicare Annual Wellness Type Of Examation Type of Exam: Subsequent Wellness Exam EKG EKG Performed: No Medication list Medications acetaminophen 1,000 mg PO Q4HR atenolol 50 mg PO HS betamethasone, augmented 0.05 % 1 SM.AMT TP BID blood sugar diagnostic (Blood Glucose Test) Test blood glucose levels BID or as directed by physician. Dx E11.9 blood-glucose meter Test blood glucose levels BID or as ordered by physician. DX E11.9 ceramides 1,3,6-II (CeraVe) 1 SM.AMT TP DAILY chlorzoxazone 500 mg PO HS furosemide 20 mg PO DAILY [Gabapentin 1 - 2 caps PO BID MDD 4] hydralazine 25 mg PO DAILY hydroxyzine HCl 1-2 tabs PO every 6 hours; lancets Test blood glucose levels BID or as directed by physician. Dx E11.9 losartan 50 mg PO QDAY lovastatin 20 mg PO QDAY meloxicam 15 mg PO DAILY metformin 500 mg PO QDAY multivitamin 1 tab PO DAILY omeprazole 40 mg PO QDAY potassium chloride ER (Klor-Con M) 20 mEq PO DAILY ranitidine HCl (Zantac Maximum Strength) 150 mg PO DAILY PRN tacrolimus 0.1% (Protopic) 1 SM.AMT TP DAILY Allergies Allergies propofol Allergy (Severe, Unverified 05/26/19 11:35) Wheezing, high blood pressure, diarrhea latex [Latex] Allergy (Unknown, Unverified 12/24/17 09:58) nitroglycerin [Nitroglycerin] Allergy (Unknown, Unverified 12/24/17 09:58) Penicillins Allergy (Unknown, Unverified 12/24/17 09:58) Sulfa (Sulfonamide Antibiotics) Allergy (Unknown, Unverified 12/24/17 09:58) fish oil Adverse Reaction (Unverified 11/11/18 13:44) diarrhea Current Diet Current diet: low sodium and regular PHQ-2/9 Over the last 2 weeks, how often have you been bothered by any of the following problems? 1. Little interest or pleasure in doing things: not at all 2. Feeling down, depressed, or hopeless: not at all Total score: 0 Vision [place] [facility] Far - right eye: 20/20 VA Far - left eye: 20/15 VA Far - bilateral eyes: 20/15 Functional Assessment Bathing: Independent Dressing: Independent Toileting: Independent Transferring: Independent Continence: Independent Feeding: Independent Total Score: 6 Home Safety Home Safety: Reports Bathroom: Grab bars, Lighting: Adequate, [place]: No throw rugs and Stairs: Handrail available Hearing Hearing Left Ear: Normal Hearing Right Ear: Normal Hearing test method: whispered voice IADL Assessment Functional abilities: Up Go test, pt steady, Pt independent w/phone, Pt independent w/transportation, Pt independent w/shopping, Pt independent w/housework, Pt independent w/meal preparation, Pt independent w/laundry, Pt independent w/medication and Pt independent w/finances; negative for Up Go test, within 30 sec Cognitive Evaluation Oriented to the date:: Yes Oriented to time:: Yes Oriented to place:: Yes Mood: grossly normal Affect: Normal Judgement: normal Needs caregiver for assistance: No Clock drawing: Yes Clock drawing with correct time: Yes 3 item recall: 3 HPI Additional HPI HPI Details: Has tried to eat better and has lost 10 pounds this year, 5 pounds since we saw her last. Her hemoglobin A1c was 6.8 at that time. She has a lot of joint aches. She is seeing orthopedics for her right shoulder and they have offered her surgery or injections. She gets injections when she needs them. She is not doing exercises. She did get the Covid vaccination Materna November 29. She agrees to get a mammogram this year. She is constipated but takes a stool softener when she needs to. She is not interested in changing her diet. Her bladder has improved since the Botox injection. She still takes Myrbetriq. She would like a diet pill she saw on television. She is not sure the name of it. Review of Systems Const Denies anorexia, Denies excessive sweating, Denies fatigue, Denies fever(s), Denies headache(s), Denies weight gain and Denies weight loss Eyes Reports dry eyes and Denies itchy eyes ENT Denies abnormal hearing, Denies dizziness, Denies headache(s), Denies lip swelling, Denies nasal congestion, Denies nasal discharge, Denies disequilibrium, Denies sinus pain, Denies sore throat and Denies throat swelling Card Denies chest pain, Denies pedal edema, Denies lightheadedness, Denies palpitations and Denies dyspnea Resp Denies cough, Denies excessive phlegm production, Denies pain on inspiration, Denies dyspnea and Denies wheezing GI Reports constipation Musc Reports muscle cramps Skin/Breast Reports dry skin Neuro Denies abnormal hearing, Denies dizziness, Denies headache(s), Denies memory loss, Denies paresthesias and Denies disequilibrium Psych Denies abnormal sleep pattern, Denies anxiety, Denies change in appetite, Denies depression, Denies irritability and Denies memory loss Endo Denies cold intolerance, Denies excessive sweating, Denies fatigue, Denies polyphagia, Denies polydipsia, Denies polyuria and Denies palpitations José Miguel/Lymph Denies easy bleeding, Denies easy bruising and Denies lymphadenopathy Aller/Immun Denies urticaria, Denies itchy eyes, Denies lip swelling, Denies seasonal rhinorrhea, Denies throat swelling and Denies wheezing Exam Const General: cooperative, comfortable, no acute distress, well developed, well groomed and well hydrated Nutritional Appearance: overweight Orientation: alert, awake and oriented x3 Resp Effort Inspection: normal respiratory effort, no cough and not labored Auscultation: clear to auscultation bilaterally Cardio Pal pation: normal PMI Rate: regular rate Rhythm: regular rhythm Heart Sounds: S1 normal and S2 normal Neuro General: patient alert, patient awake, patient oriented x3, tone normal and moves all extremities Cognition: normal cognition Speech: speech normal Gait: antalgic (slower) Motor: no movement abnormalities noted Extrem General: normal to inspection, capillary refill normal, no joint enlargement and no pedal edema Psych Appearance: grossly normal and well kempt Mental Status: mental status grossly normal Speech and Movement: speech and movement normal Mood: congruent mood Affect: normal affect Attitude: cooperative Thought Process: normal Thought Content: normal Assessment Plan Assessment Plan (1) Medicare annual wellness visit, subsequent: Code(s): Z00.00 - Encounter for general adult medical examination without abnormal findings Plan: Will get mammogram this year. Declines other preventive health maintenance. Given summary sheet of preventive measures. Long discussion of weight loss options. They include increasing her exercise, medications, change in diet, or surgery. She feels that she is done all she can with her diet. She does not feel that she can exercise more. We offered her Trulicity last fall which helps with both sugar and weight but she is not sure that she can afford the co-pay. We looked into other medications and all of them had a higher co-pay including Saxenda. If she is interested in an [id number] remedy she should give us a call and let us know the name so we can talk about how it works. (2) Diabetes mellitus type 2 in obese: Status: Chronic Onset Date: 08/11/11 Code(s): E11.69 - Type 2 diabetes mellitus with other specified complication; E66.9 - Obesity, unspecified SNOMED Code(s): 61757253 Category: Medical Plan: Declines foot exam (3) Mixed hyperlipidemia: Status: Chronic Onset Date: 08/11/11 Code(s): E78.2 - Mixed hyperlipidem ia SNOMED Code(s): 195316594 Category: Medical Plan: Recheck yearly (4) Right rotator cuff tendinitis: Status: Chronic Onset Date: 11/12/16 Code(s): M75.81 - Other shoulder lesions, right shoulder SNOMED Code(s): 64556462177266974 Category: Medical Plan: Instructed in shoulder exercises to keep it limber (5) Lumbar disc disease with radiculopathy: Status: Chronic Code(s): M51.16 - Intervertebral disc disorders with radiculopathy, lumbar region SNOMED Code(s): 026660864 Category: Medical Plan: Great job at weight loss (6) Hypertension: Status: Chronic Code(s): I10 - Essential (primary) hypertension SNOMED Code(s): 15149663 Category: Medical Qualifiers: Hypertension type: essential hypertension Qualified Code(s): I10 - Essential (primary) hypertension Plan: Blood work prior to next appointment (7) Stress incontinence: Status: Chronic Code(s): N39.3 - Stress incontinence (female) (male) SNOMED Code(s): 91963526 Category: Medical Plan: Helped by Myrbetriq and Botox (8) Constipation: Status: Chronic Code(s): K59.00 - Constipation, unspecified SNOMED Code(s): 48045364 Category: Medical Plan: I would like her to eat whole grains and add a fruit or vegetable to every day. She says she will continue to use a stool softener when she wishes Orders: Orders HGBA1C + EAG Today E11.69 - Type 2 diabetes mellitus with other specified complication, E66.9 - Obesity, unspecified 3D DIG MAMMO SCREEN BILAT Today Z12.31 - Encounter for screening mammogram for malignant neoplasm of breast HGBA1C + EAG 6 Months E11.69 - Type 2 diabetes mellitus with other specified complication, E66.9 - Obesity, unspecified, E78.2 - Mixed hyperlipidemia, I10 - Essential (primary) hypertension CMP 6 Months E11.69 - Type 2 diabetes mellitus with other specified complication, E66.9 - Obesity, unspecified, E78.2 - Mixed hyperlipidemia, I10 - Essential (primary) hypertension LIPID PANEL 6 Months E11.69 - Type 2 diabetes mellitus with other specified complication, E66.9 - Obesity, unspecified, E78.2 - Mixed hyperlipidemia, I10 - Essential (primary) hypertension Medications: Discontinued Afluria Qd 2020-21(3yr up)(PF) (flu vac [id number] 36mos up(PF)) Discontinued Reason: Clinically Indicated 60 mcg IM ONCE 0.5 mL 0RF NS Z23 - Encounter for immunization Orders Instructions: DASH Eating Plan (GEN) Hypertension (GEN) Coding Level of Care Code Medicare AWV subsequent Exam Expanded Problem Focused Diagnoses Medicare annual wellness visit, subsequent Z00.00 Diabetes mellitus type 2 in obese E11.69; E66.9 Mixed hyperlipidemia E78.2 Right rotator cuff tendinitis M75.81 Lumbar disc disease with radiculopathy M51.16 Hypertension I10 Hypertension type: essential hypertension Stress incontinence N39.3 Constipation K59.00 <Electronically signed by Coby Marcelo MD> 02/07/21 1122 Name Value Range Interpretation Code Description Data Donna rce(s) Supporting Document(s) ID Date Data Source [id number] 01/22/2021 11:05:00 AM EDT [facility] ([facility] Name Value Range Interpretation Code Description Data Donna rce(s) Supporting Document(s) Glucose [Presence] in Urine Laboratory test result [facility]) Protein [Presence] in Urine by Test strip Laboratory test result [facility] ([facility]) Ua Nitrite Laboratory test result [facility] ([facility]) Ua Leuko Laboratory test result [facility] ([facility]) Blood [Presence] in Urine by Visual Laboratory test result [facility] ([facility]) Color of Urine Laboratory test result [facility] ([facility]) Ketones [Presence] in Urine by Test strip Laboratory test result [facility] ([facility]) Clarity of Urine Laboratory test result [facility]) Ua Specific [place] Laboratory test result 1.003-1.030 [facility] ([facility]) Bilirubin.total [Presence] in Urine by Test strip Laboratory test res ult [facility] ([facility]) pH of Urine by Test strip 7.0 5.0-7.5 [facility]) Urobilinogen [Mass/volume] in Urine by Test strip 1.0 E.U./dL 0.0-1.0 [facility] ([facility]) ID Date Data Source [id number] 12/18/2020 09:32:00 AM EDT [facility] ([facility]) Name Value Range Interpretation Code Description Data Donna rce(s) Supporting Document(s) Glucose [Presence] in Urine Laboratory test result [facility] ([facility]) Protein [Presence] in Urine by Test strip Laboratory test result [facility]) Ua Nitrite Laboratory test result [facility]) Ua Leuko Laboratory test result [facility]) Blood [Presence] in Urine by Visual Laboratory test result [facility]) Color of Urine Laboratory test result [facility] ([facility]) Ketones [Presence] in Urine by Test strip Laboratory test result [facility]) Clarity of Urine Laboratory test result [facility] ([facility]) Ua Specific [place] Laboratory test result 1.003-1.030 [facility] ([facility]) pH of Urine by Test strip 5.5 5.0-7.5 [facility]) Urobilinogen [Mass/volume] in Urine by Test strip 0.2 E.U./dL 0.0-1.0 [facility] ([facility]) Bilirubin.total [Presence] in Urine by Test strip Laboratory test res ult [facility]) ID Date Data Source [id number] 11/21/2020 02:42:00 PM EDT [facility] Name Value Range Interpretation Code Description Data Donna rce(s) Supporting Document(s) Bacteria identified in Urine by Culture Laboratory test result [facility] ([facility]) <content>SPECIMEN DESCRIPTION URI NE, COLLECTION METHOD NOT SPECIFIED</content>
<content>CULTURE RESULTS >100,000 CFU/ML ESCHERICHIA COLI</content>
<content> IMPORTANT NOTE FOR COMPLICATED</content>
<content> INFECTIONS SUCH UROSEPSIS CEFAZOLIN</content>
<content> SHOULD HAVE A AYAD OF LESS THAN OR EQUAL</content>
<content> TO 2 TO BE CONSIDERED SUSCEPTIBLE.</content>
<content> CONTACT MICROBIOLOGY FOR FURTHER TESTING</content>
<content> IF WARRANTED.</content>
<content>REPORT STATUS FINAL 1</content>
<content>ORGANISM ESCHERICHIA COLI</content>
<content>METHOD AYAD</content>
<content>AMIKACIN <=2 SUSCEPTIBLE</content>
<content>AMOXICILLIN/CLAVULANIC AC 4/2 SUSCEPTIBLE</content>
<content>AMPICILLIN 8 SUSCEPTIBLE</content>
<content> ISOLATES SUSCEPTIBLE TO AMPICILLIN ARE ALSO</content>
<content> SUSCEPTIBLE TO AMOXICILLIN.</content>
<content>CEFAZOLIN <=4 SUSCEPTIBLE</content>
<content> FOR UNCOMPLICATED UTI'S,CEFAZOLIN AYAD RESULTS</content>
<content> LESS THAN OR EQUAL TO 16 MCG/ML PREDICT</content>
<content> SUSCEPTIBILITY OF THE FOLLOWING ORAL</content>
<content> CEPHALOSPORINS:CEFACLOR,CEFDINIR,</content>
<content> CEFPODOXIME,CEFPROZIL,CEFUROXIME</content>
<content> AND CEPHALEXIN.</content>
<content>CEFEPIME <=1 SUSCEPTIBLE</content>
<content>CEFOXITIN <=4 SUSCEPTIBLE</content>
<content>CEFTAZIDIME <=1 SUSCEPTIBLE</content>
<content>CEFTRIAXONE <=1 SUSCEPTIBLE</content>
<content>CIPROFLOXACIN <=0.25 SUSCEPTIBLE</content>
<content>GENTAMICIN <=1 SUSCEPTIBLE</content>
<content>LEVOFLOXACIN <=0.12 SUSCEPTIBLE</content>
<content>MEROPENEM <=0.25 SUSCEPTIBLE</content>
<content>NITROFURANTOIN <=16 SUSCEPTIBLE</content>
<content>PIPERACILLIN/TAZOBACTAM <=4 SUSCEPTIBLE</content>
<content>TETRACYCLINE <=1 SUSCEPTIBLE</content>
<content> ISOLATES SUSCEPTIBLE TO TETRACYCLINE ARE</content>
<content> ALSO SUSCEPTIBLE TO DOXYCYCLINE AND</content>
<content> MINOCYCLINE.</content>
<content>TOBRAMYCIN <=1 SUSCEPTIBLE</content>
<content>TRIMETH/SULFA <=1/19 SUSCEPTIBLE</content>
<content>ERTAPENEM <=0.5 SUSCEPTIBLE</content> ID Date Data Source [id number] 11/23/2020 09:53:19 AM EDT [facility] - CORE SPECIMEN DESCRIPTION URINE, COLLE CTION METHOD NOT SPECIFIEDCULTURE RESULTS >100,000 CFU/ML ESCHERICHIA COLI IMPORTANT NOTE FOR COMPLICATED INFECTIONS SUCH UROSEPSIS CEFAZOLIN SHOULD HAVE A AYAD OF LESS THAN OR EQUAL TO 2 TO BE CONSIDERED SUSCEPTIBLE. CONTACT MICROBIOLOGY FOR FURTHER TESTING IF WARRANTED.REPORT STATUS FINAL 11/23/2020ORGANISM ESCHERICHIA COLIMETHOD MICAMIKACIN <=2 SUSCEPTIBLEAMOXICILLIN/CLAVULANIC AC 4/2 SUSCEPTIBLEAMPICILLIN 8 SUSCEPTIBLE ISOLATES SUSCEPTIBLE TO AMPICILLIN ARE ALSO SUSCEPTIBLE TO AMOXICILLIN.CEFAZOLIN <=4 SUSCEPTIBLE FOR UNCOMPLICATED UTI'S,CEFAZOLIN AYAD RESULTS LESS THAN OR EQUAL TO 16 MCG/ML PREDICT SUSCEPTIBILITY OF THE FOLLOWING ORAL CEPHALOSPORINS:CEFACLOR,CEFDINIR, CEFPODOXIME,CEFPROZIL,CEFUROXIME AND CEPHALEXIN.CEFEPIME <=1 SUSCEPTIBLECEFOXITIN <=4 SUSCEPTIBLECEFTAZIDIME <=1 SUSCEPTIBLECEFTRIAXONE <=1 SUSCEPTIBLECIPROFLOXACIN <=0.25 SUSCEPTIBLEGENTAMICIN <=1 SUSCEPTIBLELEVOFLOXACIN <=0.12 SUSCEPTIBLEMEROPENEM <=0.25 SUSCEPTIBLENITROFURANTOIN <=16 SUSCEPTIBLEPIPERACILLIN/TAZOBACTAM <=4 SUSCEPTIBLETETRACYCLINE <=1 SUSCEPTIBLE ISOLATES SUSCEPTIBLE TO TETRACYCLINE ARE ALSO SUSCEPTIBLE TO DOXYCYCLINE AND MINOCYCLINE.TOBRAMYCIN <=1 SUSCEPTIBLETRIMETH/SULFA <=1/19 SUSCEPTIBLEERTAPENEM <=0.5 SUSCEPTIBLE Name Value Range Interpretation Code Description Data Donna rce(s) Supporting Document(s) ID Date Data Source [id number] 11/21/2020 01:26:00 PM EDT [facility] ([facility] Name Value Range Interpretation Code Description Data Donna rce(s) Supporting Document(s) Protein [Presence] in Urine by Test strip Laboratory test result [facility]) Ua Nitrite Laboratory test result [facility]) Glucose [Presence] in Urine Laboratory test result [facility]) Ua Leuko Laboratory test result [facility]) Blood [Presence] in Urine by Visual Laboratory test result [facility]) Ketones [Presence] in Urine by Test strip Laboratory test result [facility]) Color of Urine Laboratory test result [facility]) pH of Urine by Test strip 7.0 5.0-7.5 [facility]) Clarity of Urine Laboratory test result [facility]) Ua Specific [place] 1.020 1.003-1.030 [facility] ([facility]) Bilirubin.total [Presence] in Urine by Test strip Laboratory test res ult [facility] ([facility]) Urobilinogen [Mass/volume] in Urine by Test strip 1.0 E.U./dL 0.0-1.0 [facility] ([facility]) ID Date Data Source [id number] 08/09/2020 02:42:00 PM EST [facility] Name Value Range Interpretation Code Description Data Donna rce(s) Supporting Document(s) Leukocytes [#/volume] in Blood by Automated count 7.3 10*3/uL 4.45-10 .71 N [facility] Erythrocytes [#/volume] in Blood by Automated count 4.41 10*6/uL 4.20 -5.40 N [facility] Hemoglobin [Moles/volume] in Blood 14.2 g/dL 10.7-15.4 N [facility] Hematocrit [Volume Fraction] of Blood by Automated count 43.6 % 3 7-47 N [facility] Erythrocyte mean corpuscular volume [Ent itic volume] in Cord blood by Automated count 98.9 fL 80-96 Above high normal [facility] Erythrocyte mean corpuscular hemoglobin [Entitic mass] by Automated count 32.2 pg 27-31 Above high normal [facility] spital Erythrocyte mean corpuscular hemoglobin concentration [Mass/volume] in Cord blood 32.6 g/dL 33-37 Below low normal [facility] Erythrocyte distribution width [Entitic volume] by Automated count 13 % 11-15 N [facility] Platelets [#/volume] in Blood by Automated count 227 10*3/uL 130-472 N [facility] Platelet mean volume [Entitic volume] in Blood 9.8 fL 9.1-13.1 N [facility] Neutrophils/100 leukocytes in Blood by Automated count 60.1 % 41- 77 [facility] Neutrophils [#/volume] in Blood by Automated count 4.4 U 1.7-7.6 N [facility] Lymphocytes/100 leukocytes in Blood by Automated count 25.8 % 14- 46 N [facility] Lymphocytes [#/volume] in Blood by Automated count 1.9 U 0.6-4.6 N [facility] Monocytes/100 leukocytes in Blood by Automated count 9.1 % 4-12 N [facility] Monocytes [#/volume] in Blood by Automated count 0.7 U 0.2-1.2 N [facility] Eosinophils/100 leukocytes in Blood by Automated count 3.7 % 0-7 N [facility] Eosinophils [#/volume] in Blood by Automated count 0.3 U 0.0-0.5 N [facility] Basophils/100 leukocytes in Blood by Automated count 1.2 % 0.4-1 .3 N [facility] Basophils [#/volume] in Blood by Automated count 0.1 U 0.0-0.2 N [facility] NUCLEATED RED BLOOD CELL 0 % [facility] NUCLEATED RED BLOOD CELL# 0 U [facility] Immature granulocytes [Presence] in Blood by Automated count 0-2 N [facility] Immature granulocytes [#/volume] in Blood by Automated count 0.0 U 0-0.1 [facility] Manual Differential panel - Blood NO [facility] ID Date Data Source [id number] 08/09/2020 03:08:00 PM EST [facility] Name Value Range Interpretation Code Description Data Donna rce(s) Supporting Document(s) Hemoglobin A1c % 6.8 % 4.0-6.0 Above high normal [facility] The following ranges may be u sed for interpretation of results: HGBA1C degree of glucose control: Greater than 8%: Action Suggested * Less than 7%: Goal of Diabetic Therapy Less than 6%: NormalFactors such as duration of diabetes, adherence to therapyand the age of the patient should also be considered inassessing the degree of blood glucose control.* High risk of developing half-way complications such asretinopathy, nephropathy, neuropathy, cardiopathy, etc. Some danger of hypoglycemic reaction in Type I diabetics.Some glucose intolerant individuals and "Sub Clinical"diabetics may demonstrate HGBA1C levels in this area. Glucose mean value [Moles/volume] in Blood Estimated f rom glycated hemoglobin 148 mg[facility] An A1C of 7% - the goal of diabetic ther apy - is equivalentto an EAG of 154 mg/dl. ID Date Data Source [id number] 08/09/2020 12:59:00 PM EST [facility] Patient Name: Michelle Rajan : 1945 Sex: F Pt Unit #: [id number] Location:[facility] Provider: Visit Date/Time: 08/09/20 Primary Insurance: MEDICARE [employer] Secondary Insurance: AAR Intake Vital Signs 08/09/20 13:06 Current Height 5 ft 4.5 in Current Weight 240 lb BMI 40.5 BP 130/80 Position Sitting Respiration 16 Pulse 78 Pulse Strength Normal Pulse Source Pulse Oximeter Intake Visit Reasons: Hypertension Nurse Note: 6 mo checkup. no new concerns. has been having trouble getting up and down. balance has not been good. has appt with dr. mayorga next wk. continues to have pain in right shoulder. seeing ortho-ncog. has a spot at right shoulder between neck and shoulder blade. aches a lot. applies heat at night with some relief. has questions on diabetes. does not understand what she should be looking for. some info given. Development Scientist Required: No Is patient in pain?: Yes Pain scale (1-10): 5 All ergies propofol Allergy (Severe, Unverified 05/26/19 11:35) Wheezing, high blood pressure, diarrhea latex [Latex] Allergy (Unknown, Unverified 12/24/17 09:58) nitroglycerin [Nitroglycerin] Allergy (Unknown, Unverified 12/24/17 09:58) Penicillins Allergy (Unknown, Unverified 12/24/17 09:58) Sulfa (Sulfonamide Antibiotics) Allergy (Unknown, Unverified 12/24/17 09:58) fish oil Adverse Reaction (Unverified 11/11/18 13:44) diarrhea Post menopausal: Yes Fall Risk History of falls: No HIV Testing Offer - ages 13-64 Requirement for HIV testing offer been met?: Not in age range Do you need a note to return Do you need a note to return to daycare/school/sports/work: No Coronavirus Screening Screening Have you traveled outside of [facility] or [facility] in the last 14 days.: No Has patient experienced coronavirus symptoms: No PFS Medical History (Updated 08/09/20 @ 16:47 by Coby Marcelo MD) Acute myocardial infarction Allergic rhinitis Asthma Benign esophageal stricture Chronic gastritis Chronic low back pain Chronic osteoarthritis Chronic urticaria Coronary arteriosclerosis Degeneration of intervertebral disc Diabetes mellitus type 2 in obese (08/11/11) Eczema Edema Gastroesophageal reflux disease with esophagitis (11/11/18) Hiatal hernia hx of stroke Hypertension, essential Lichen simplex chronicus Mixed hyperlipidemia (08/11/11) Obesity Obstructive sleep apnea, adult Polyp of colon Restless legs Right rotator cuff tendinitis (11/12/16) Stasis dermatitis Stress incontinence in female Varicose veins of lower extremity with inflammation Surgical History (Updated 11/02/19 @ 14:55 by Coby Marcelo MD) Appendectomy Cataract extraction and insertion of intraocular lens Esophageal dilatation History of - surgery History of - surgery History of - surgery (12/07/14) History of - surgery ( 07/2013) History of colonoscopy ( 2009) History of hysterectomy Status post carpal tunnel release Status post tonsillectomy Family History Mother Hypertension, essential Diabetes Father Heart disease Grandmother No problems noted. Grandmother No problems noted. Grandfather No problems noted. Grandfather No problems noted. Social History (Updated 05/14/20 @ 12:05 by Coby Marcelo MD) Does the Patient have a Healthcare Proxy: Yes Does Patient have a DNR?: No Does Patient have a Living Will?: Yes Does the Patient have a MOLST?: No Advance Directives on File or in chart?: No household members: spouse marital status: Hx Recent Travel (where): No current gender identity: female Smoking Status: Never smoker HPI Additional HPI HPI Details: Has sore spot on right neck/shoulder. Persistent for years. Seeing orthopedics next week. Has had bad shoulder and does not want therapy for it. Says that ortho never suggested it so it cannot be worthwhile Sees for her back injections. Has lost weight and is trying hard. continues to have stasis dermatitis. Does not know what they are using on it but they are going to try an Unna boot. Back on metformin but does not always take the second dose because she is afraid she will get diarrhea. Hypertension (Cardio) Current neurological symptoms: Denies headache(s) or loss of vision Current cardiovascular symptom: denies chest pain, dyspnea, palpitations, fatigue or dizziness Current endocrine symptoms: denies cold intolerance or weight gain Current renal disease symptoms: denies fatigue, nausea, vomiting or weight loss Most Recent Cardiac Tests: No Data to Display Review of Systems Const Denies anorexia, Denies excessive sweating, Denies fatigue, Denies fever(s), Denies headache(s), Denies weight gain and Denies weight loss Eyes Denies blurry vision, Denies change in vision, Denies dry eyes, Denies irritation, Denies itchy eyes and Denies loss of vision ENT Denies abnormal hearing, Denies dysphagia, Denies dizziness, Denies headache(s), Denies lip swelling, Denies nasal congestion, Denies nasal discharge, Reports neck pain, Denies disequilibrium, Denies sinus pain, Denies sore throat and Denies throat swelling Card Denies chest pain, Denies pedal edema, Denies lightheadedness, Denies palpitations and Denies dyspnea Resp Denies cough, Denies excessive phlegm production, Denies pain on inspiration, Denies dyspnea and Denies wheezing GI Denies abdominal pain, Denies change in bowel habits, Denies dysphagia, Denies early satiety, Denies heartburn, Denies diarrhea, Denies nausea and Denies vomiting Musc Reports abnormal gait, Denies back pain, Denies arthralgias, Denies limited range of motion, Denies muscle cramps, Denies muscle weakness, Reports neck pain and Reports stiffness Skin/Breast Denies breast pain, Denies change in pigmentation, Denies lesions, Denies nail changes, Denies rash and Denies unusual bruising Neuro Denies abnormal hearing, Reports abnormal gait, Denies dizziness, Denies headache(s), Denies loss of vision, Denies memory loss, Denies paresthesias and Denies disequilibrium Psych Denies abnormal sleep pattern, Denies anxiety, Denies change in appetite, Denies depression, Denies irritability and Denies memory loss Endo Denies cold intolerance, Denies excessive sweating, Denies fatigue, Denies polyphagia, Denies polydipsia, Denies polyuria and Denies palpitations José Miguel/Lymph Denies easy bleeding, Denies easy bruising and Denies lymphadenopathy Aller/Immun Denies urticaria, Denies itchy eyes, Denies lip swelling, Denies seasonal rhinorrhea, Denies throat swelling and Denies wheezing Exam Const General: cooperative, healthy appearing, no acute distress, well developed and well groomed Nutritional Appearance: obese Orientation: alert, awake and oriented x3 HENMT Head: normal to inspection Neck Neck: normal visual inspection and no lymphadenopathy Neck mass: No Thyroid: thyroid normal Resp Effort Inspection: normal respiratory effort Auscultation: clear to auscultation bilaterally Cardio Palpation: normal PMI Rate: regular rate Rhythm: regular rhythm Heart Sounds: S1 normal and S2 normal GI Inspection: Yes normal to inspection Palpation: soft and no hepatosplenomegaly Musc Other: Right lateral neck tenderness extending down to scapula. Right shoulder with range of motion severely limited to 30 degrees. Palpable bony abnormalities. Skin Lesions: no lesions Rashes: no rashes Wounds: wounds noted (right ankle with venous statis changes, none open) Extrem General: capillary refill normal and no pedal edema Psych Appearance: grossly normal and well kempt Mental Status: mental status grossly normal Speech and Movement: speech and movement normal Affect: normal affect Attitude: cooperative Thought Process: normal Thought Content: normal Assessment Plan Assessment Plan (1) Hypertension: Status: Chronic Code(s): I10 - Essential (primary) hypertension SNOMED Code(s): 37370930 Category: Medical Qualifiers: Hypertension type: essential hypertension Qualified Code(s): I10 - Essential (primary) hypertension Plan - Coby Marcelo MD: doing well (2) Diabetes mellitus type 2 in obese: Status: Chronic Onset Date: 08/11/11 Code(s): E11.69 - Type 2 diabetes mellitus with other specified complication; E66.9 - Obesity, unspecified SNOMED Code(s): 54239653 Category: Medical Plan - Coby Marcelo MD: Try to take the metformin consistently.I would be glad to switch to long acting formula so she could take 2000 in the AM and not worry about an afternoon dose. She will consider it Orders: Referrals: Public Health - Diabetes Self Management (3) Obstructive sleep apnea, adult: Status: Chronic SNOMED Code(s): 6109430322047 Category: Medical Plan - Coby Marcelo MD: not using the CPAP (4) Right rotator cuff tendinitis: Status: Chronic Onset Date: 11/12/16 Code(s): M75.81 - Other shoulder lesions, right shoulder SNOMED Code(s): 48691858058271631 Category: Medical Plan - Coby Marcelo MD: Now she is getting muscle strain to the trapezius as well.I hate to do trigger point injections if she is going to have the surgeon inject her shoulder next week.I would like to refer her to therapy but she refuses. Can use tylenol and heat. Taught her simple stretches ( crawling the wall with her fingers, pendulum, etc) (5) Stress incontinence: Status: Chronic Code(s): N39.3 - Stress incontinence (female) (male) SNOMED Code(s): 61304190 Category: Medical (6) Varicose veins of lower extremity without ulcer or inflammation: Status: Chronic Onset Date: 10/06/14 Code(s): I83.90 - Asymptomatic varicose veins of unspecified lower extremity SNOMED Code(s): 736746273 Category: Medical Plan - Coby Marcelo MD: seeing derm and getting some improvement Orders Other Medications: Discontinued: lovastatin Discontinued Reason: Clinically Indicated 20 mg PO DAILY 90 tabs 1RF E78.2 Instructions: DASH Eating Plan (GEN) Hypertension (GEN) Follow Up: 6 Months <Electronically signed by Coby Marcelo MD> 08/09/20 1650 Name Value Range Interpretation Code Description Data Donna rce(s) Supporting Document(s) ID Date Data Source [id number] 05/22/2020 04:35:00 PM EDT [facility] Name Value Range Interpretation Code Description Data Donna rce(s) Supporting Document(s) Bacteria identified in Urine by Culture Laboratory test result [facility]) SPECIMEN DESCRIPTION URINE, COLLE CTION METHOD NOT SPECIFIED CULTURE RESULTS MIXED UROGENITAL VIRGILIO; PLEASE SUBMIT A NEW SPEC IMEN IF CLINICALLY INDICATED. REPORT STATUS FINAL 05/24/2020 ID Date Data Source [id number] 05/24/2020 10:29:48 AM EDT [facility] - CORE SPECIMEN DESCRIPTION URINE, COLLE CTION METHOD NOT SPECIFIEDCULTURE RESULTS MIXED UROGENITAL VIRGILIO; PLEASE SUBMIT A NEW SPEC IMEN IF CLINICALLY INDICATED.REPORT STATUS FINAL 05/24/2020 Name Value Range Interpretation Code Description Data Donna rce(s) Supporting Document(s) ID Date Data Source [id number] 05/22/2020 02:32:00 PM EDT [facility] Name Value Range Interpretation Code Description Data Donna rce(s) Supporting Document(s) Glucose [Presence] in Urine Laboratory test result [facility]) Protein [Presence] in Urine by Test strip 30 mg/dL [facility]) Blood [Presence] in Urine by Visual Laboratory test result [facility]) Ua Leuko Laboratory test result [facility]) Ua Nitrite Laboratory test result [facility]) Ketones [Presence] in Urine by Test strip Laboratory test result [facility]) Color of Urine Laboratory test result [facility]) Clarity of Urine Laboratory test result [facility]) Ua Specific [place] Laboratory test result 1.003-1.030 [facility]) pH of Urine by Test strip 5.5 5.0-7.5 [facility]) Bilirubin.total [Presence] in Urine by Test strip Laboratory test res ult [facility]) Urobilinogen [Mass/volume] in Urine by Test strip 0.2 E.U./dL 0.0-1.0 [facility] ([facility]) ID Date Data Source [id number] 05/14/2020 03:56:00 PM EDT [facility] Name Value Range Interpretation Code Description Data Donna rce(s) Supporting Document(s) Urine Random Creatinine 98.0 mg/dL [facility] THERE IS NO ESTABLISHED RANGE FOR RANDOM URINE CREATININE Urine Microalbumin 16.0 mg/L 0.0-29.9 [facility] Ur Malb/Cre Ratio (ACR) 16.3 ug/mg 0.0-30.0 [facility] ID Date Data Source [id number] 05/14/2020 11:05:00 AM EDT [facility] Patient Name: Michelle Rajan : 1945 Sex: F Pt Unit #: [id number] Location:[facility] Provider: Visit Date/Time: 05/14/20 Primary Insurance: MEDICARE [employer] Secondary Insurance: AARP Intake Vital Signs 05/14/20 11:12 Current Height 5 ft 4.5 in Current Weight 246 lb BMI 41.5 BP 122/90 Position Sitting Respiration 20 Pulse 72 Pulse Strength Normal Pulse Source Palpation Temp 98.2 F Temp Source Tympanic Comment prev ht Intake Visit Reasons: Diabetes, Hypertension Nurse Note: routine checkup. no new concerns. f/u on losartan dose increased to 50 mg. pt states she did not start the trulicity due to cost. also not taking januvia and only takes metformin here and there when she remembers it. Development Scientist Required: No Is patient in pain?: Yes Allergies propofol Allergy (Severe, Unverified 05/26/19 11:35) Wheezing, high blood pressure, diarrhea latex [Latex] Allergy (Unknown, Unverified 12/24/17 09:58) nitroglycerin [Nitroglycerin] Allergy (Unknown, Unverified 12/24/17 09:58) Penicillins Allergy (Unknown, Unverified 12/24/17 09:58) Sulfa (Sulfonamide Antibiotics) Allergy (Unknown, Unverified 12/24/17 09:58) fish oil Adverse Reaction (Unverified 11/11/18 13:44) diarrhea Medications acetaminophen 1,000 mg PO Q4HR atenolol 50 mg PO HS betamethasone, augmented 0.05% 1 SM.AMT TP BID blood sugar diagnostic (Blood Glucose Test) Test blood glucose levels BID or as directed by physician. Dx E11.9 blood-glucose meter Test blood glucose levels BID or as ordered by physician. DX E11.9 ceramides 1,3,6-11 (CeraVe) 1 SM.AMT TP DAILY chlorzoxazone 500 mg PO HS furosemide 20 mg PO DAILY [Gabapentin 1 - 2 caps PO BID MDD 4] hydralazine 25 mg PO DAILY lancets Test blood glucose levels BID or as directed by physician. Dx E11.9 losartan 50 mg PO QDAY lovastatin 20 mg PO DAILY lovastatin 20 mg PO QDAY meloxicam 15 mg PO DAILY metformin 1,000 mg PO BID multivitamin 1 tab PO DAILY omeprazole 40 mg PO QDAY potassium chloride ER (Klor-Con M) 20 mEq PO DAILY ranitidine HCl (Zantac Maximum Strength) 150 mg PO DAILY PRN tacrolimus 0.1% (Protopic) 1 SM.AMT TP DAILY tolterodine ER 4 mg PO DAILY Post menopausal: Yes Vision Wearing glasses?: Yes Fall Risk History of falls: No HIV Testing Offer - ages 13-64 Requirement for HIV testing offer been met?: Not in age range Do you need a note to return Do you need a note to return to daycare/school/sports/work: No Coronavirus Screening Screening Have you traveled outside of [facility] or [facility] in the last 14 days.: No Has patient experienced coronavirus symptoms: No [facility] Medical History (Updated 05/14/20 @ 12:15 by Coby Marcelo MD) Acute myocardial infarction Allergic rhinitis Asthma Benign esophageal stricture Chronic gastritis Chronic low back pain Chronic osteoarthritis Chronic urticaria Coronary arteriosclerosis Degeneration of intervertebral disc Diabetes mellitus type 2 in obese (08/11/11) Eczema Edema Gastroesophageal reflux disease with esophagitis (11/11/18) Hiatal hernia hx of stroke Hypertension, essential Lichen simplex chronicus Mixed hyperlipidemia (08/11/11) Obesity Obstructive sleep apnea, adult Polyp of colon Restless legs Right rotator cuff tendinitis (11/12/16) Stasis dermatitis Stress incontinence in female Varicose veins of lower extremity with inflammation Surgical History (Updated 11/02/19 @ 14:55 by Coby Marcelo MD) Appendectomy Cataract extraction and insertion of intraocular lens Esophageal dilatation History of - surgery History of - surgery History of - surgery (12/07/14) History of - surgery ( 07/2013) History of colonoscopy ( 2009) History of hysterectomy Status post carpal brad tomy release Status post tonsillectomy Family History Mother Hypertension, essential Diabetes Father Heart disease Grandmother No problems noted. Grandmother No problems noted. Grandfather No problems noted. Grandfather No problems noted. Social History (Updated 05/14/20 @ 12:05 by Coby Marcelo MD) Does the Patient have a Healthcare Proxy: Yes Does Patient have a DNR?: No Does Patient have a Living Will?: Yes Does the Patient have a MOLST?: No Advance Directives on File or in chart?: No household members: spouse marital status: Hx Recent Travel (where): No current gender identity: female Smoking Status: Never smoker HPI Additional HPI HPI Details: Stopped taking her metformin because someone told her it was bad for her. Her A1c has increased to 7.4. Has lost 9# because she is trying. Hard year because her had lymphedema, and cardiac issues. Her right shoulder is better on the meloxicam.It also helps her cervical pain. Her creatine was goodon her last blood draw. She is happy with her bladder control program. She does not want any more physical therapy for it. 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 She would like to get her flu shot today. Hypertension (Cardio) Type of visit: follow-up Onset: > 1 year Current cardiovascular symptom: denies dyspnea, dyspnea on exertion or dizziness Current endocrine symptoms: denies myalgias, constipation or weight gain Current renal disease symptoms: denies vomiting or weight loss Most Recent Cardiac Tests: No Data to Display Monitoring BP monitoring: health professional BP comorbidities: diabetes mellitus and less than 140/90 BP control: satisfactory BP target: less than 140/90 Adult Diabetic Type: type 2 Weight and fatigue symptoms: Reports not sleeping well; Denies weight gain, weight loss, wakes up feeling tired, tired all the time, daytime sleepiness or snoring Cardiopulmonary symptoms: Denies chest pain with activity, chest pain at rest, dyspnea, dyspnea on exertion, dyspnea at rest, claudication, myalgias, postural hypotension, lightheadedness or dizziness GI symptoms: Denies increased hunger, early satiety, nausea/dyspepsia, vomiting, diarrhea or constipation Skin and extremity symptoms: Denies tingling/numbness /burning, erectile dysfunction, foot ulcers, poorly healing wound, recurrent infections or claudication Other symptoms: Denies blurry vision, change in vision, recurrent infections, depression or other Pertinent visit history: Denies recent visit to ER, recent hospital admission, recent DKA, recent 911 calls, recent severe lows, recent glucagon injection and other Self monitoring: Yes (rarely does them. ) Dietary compliance: Diabetes: other Last diet/nutrition education: 05/14/20 Has patient/family had Diabetes education in past year: Yes Glucose testing: understands testing schedule (only does them here and there) Sick day education - understands ketone testing: No Risk factor: 1. Do you have diabetes?: yes, 2. Do you have (or have you ever had) any of the following: CHD, CAD, heart attack, noncoronary atherosclerosis, abdominal aneurysm, peripheral artery disease, carotid artery stenosis?: yes, 3. Do you have a close male relative who had cardiovascular disease (such as a heart attac k) before the age of 50 or a female relative who had it before age 60?: no, 4. Do you use tobacco in any form (cigarettes, e-cigarettes, cigars, etc.)?: yes, 5. Do youhave hypertension (high blood pressure)?: yes and 6. Is your body mass index (BMI) 30 kg/m2 or greater?: yes Type(s) of exercise: none Frequency of exercise: never History of nephropathy: No Date of last urinary microalbumin measurement: 08/14/14 Results of urinary microalbumin measurement: 7.6 Date of last serum creatinine: 05/08/20 Serum creatinine result: 0.8 Date of last ophthalmology visit: 08/31/19 Review of Systems Const All systems reviewed are unremarkable except as noted in HPI and below Denies daytime sleepiness, Denies snoring, Denies weight gain and Denies weight loss Eyes Denies blurry vision and Denies change in vision ENT Denies dizziness Card Denies chest pain at rest, Denies chest pain with activity, Denies claudication, Denies lightheadedness, Denies dyspnea and Denies dyspnea on exertion Resp Denies dyspnea, Denies dyspnea on exertion and Denies snoring GI Denies constipation, Denies early satiety, Denies diarrhea and Denies vomiting Musc Denies myalgias Neuro Denies dizziness Psych Denies depression Exam Const General: cooperative, healthy appearing, comfortable, no acute distress, well developed and well groomed Nutritional Appearance: obese Orientation: alert, awake and oriented x3 Skin Other: stasis changes of the right lower leg with patchy openings but no discharge. Extrem General: pedal edema bilaterally Location: of the ankle Severity: pitting and 1+ Assessment Plan Assessment Plan (1) Hypertension, essential: SNOMED Code(s): 50349076 Category: Medical Plan - Coby Marcelo MD: doing well. see in 6 months (2) Diabetic peripheral neuropathy associated with type 2 diabetes mellitus: Status: Chronic Code(s): E11.42 - Type 2 diabetes mellitus with diabetic polyneuropathy SNOMED Code(s): 9050545959907 Category: Medical Plan - Coby Marcelo MD: Discussed how metformin works.Her stomach has always tolerated it, so she should take it. She will go back to it.It may even help her to lose a few more pounds. Orders: Orders: CBC W AUTO DIFF 3 Months HGBA1C + EAG 3 Months Microalbumin/Creat Ratio - ACR Today (3) Right rotator cuff tendinitis: Status: Chronic Onset Date: 11/12/16 Code(s): M75.81 - Other shoulder lesions, right shoulder SNOMED Code(s): 57716650243644943 Category: Medical Plan - Coby Marcelo MD: Doing better. If she wants to try to get off the gabapentin, she can now that her back is not bothering her so much. Orders: Orders: HGBA1C + EAG 3 Months (4) Influenza vaccine administered: Status: Acute Code(s): Z23 - Encounter for immunization SNOMED Code(s): 81858670414433 Category: Medical Orders: Orders: INJ - Influenza Vaccine Today Medications: New: Afluria Qd 2020-21(3yr up)(PF) (flu vac ad5515- 21 36mos up(PF)) 60 mcg (0.5 mL) IM ONCE 0.5 mL 0RF NS Orders Other Medications: New: tolterodine ER 4 mg PO DAILY 90 caps 1RF Changed: From: metformin 1 tab PO BID 180 tabs 1RF To: metformin 1,000 mg PO BID 180 tabs 1RF Other Orders: Orders: CBC W AUTO DIFF 3 Months E11.69, E66.9 HGBA1C + EAG 3 Months E11.69, E66.9 Microalbumin/Creat Ratio - ACR Today E11.69, E66.9 Instructions: Type 2 Diabetes in Adults: New Diagnosis (GEN) DASH Eating Plan (GEN) Hypertension (GEN) Follow Up: 3 Months Electronically Signed By: <Electronically signed by Coby Marcelo MD> Date/Time Signed: 05/14/20 1216 Name Value Range Interpretation Code Description Data Donna rce(s) Supporting Document(s) Procedure Social History Code Duration Value Status Description Data Source(s ) Alcohol intake 06/20/2021 12:00:00 AM EDT Current non-d kenisha of alcohol (finding) completed Current non-drinker of alcohol (finding) [facility] Alcohol intake 05/30/2021 12:00:00 AM EDT Current non-d kenisha of alcohol (finding) completed Current non-drinker of alcohol (finding) [facility] Alcohol intake 05/15/2021 12:00:00 AM EDT Current non-d kenisha of alcohol (finding) completed Current non-drinker of alcohol (finding) [facility] Alcohol intake 05/02/2021 12:00:00 AM EDT Current non-d kenisha of alcohol (finding) completed Current non-drinker of alcohol (finding) [facility] Alcohol intake 03/29/2021 12:00:00 AM EDT Current non-d kenisha of alcohol (finding) completed Current non-drinker of alcohol (finding) [facility] Alcohol intake 03/14/2021 12:00:00 AM EDT Current non-d kenisha of alcohol (finding) completed Current non-drinker of alcohol (finding) [facility] Alcohol intake 02/13/2021 12:00:00 AM EDT Current non-d kenisha of alcohol (finding) completed Current non-drinker of alcohol (finding) [facility] 02/07/2021 10:33:46 AM EDT Never smoker completed Never s [facility] Smoking 02/07/2021 10:33:00 AM EDT Never smoker completed Never [facility] Smoking 01/22/2021 12:00:00 AM EDT Patient is a non-smoker com pleted Patient is a non-smoker [facility] Smoking 11/21/2020 12:00:00 AM EDT Never Smoked Cigarettes com pleted Never Smoked Cigarettes [facility] Alcohol intake 10/04/2020 12:00:00 AM EST Current non-d kenisha of alcohol (finding) completed Current non-drinker of alcohol (finding) [facility] Smoking 10/04/2020 12:00:00 AM EST Never smoker completed Never s [facility] Smoking 05/14/2020 01:05:00 PM EDT Never smoker completed Never [facility] 05/14/2020 12:05:41 PM EDT Never smoker completed Never [facility] 05/14/2020 12:05:41 PM EDT Never smoker completed Never [facility] Smoking 05/14/2020 12:05:00 PM EDT Never smoker completed Never [facility] Vital Signs ID Date Data Source UNK Name Value Range Interpretation Code Description Data Source(s) Systolic blood pressure 158 mm[Hg] 158 mm[Hg] [facility]) Body height 64 [in_i] 64 [in_i] [facility]) 5'4" Diastolic blood pressure 100 mm[Hg] 100 mm[Hg] [facility]) Heart rate 70 /min 70 /min [facility]) Oxygen saturation in Arterial blood by Pulse oximetry 96 % 96 % [facility]) Body weight 220.00 [lb_av] 220.00 [lb_av] [facility] T ([facility]) Body mass index (BMI) [Ratio] 37.8 kg/m2 37.8 k g/m2 MEDENT ([facility]) Systolic blood pressure 134 mm[Hg] 134 mm[Hg] [facility] Diastolic blood pressure 86 mm[Hg] 86 mm[Hg] [facility] Heart rate 81 /min 81 /min [facility] Body temperature 36.11 Emily 36.11 Emily [facility] Oxygen saturation in Arterial blood by Pulse oximetry 96 % 96 % [facility] Systolic blood pressure 198 mm[Hg] 198 mm[Hg] [facility] Diastolic blood pressure 92 mm[Hg] 92 mm[Hg] [facility] Heart rate 67 /min 67 /min [facility] Oxygen saturation in Arterial blood by Pulse oximetry 92 % 92 % [facility] Body weight 230 [lb_av] 230 [lb_av] eCW1 ([facility]) Body weight 104.33 kg 104.33 kg eCW1 ([facility]) Body height [in_i] eCW1 ([facility]) Body mass index (BMI) [Ratio] 37.12 kg/m2 37.12 kg/m2 eCW1 ([facility]) Heart rate 52 /min 52 /min eCW1 ([facility]) Respiratory rate 18 /min 18 /min eCW1 ([facility]) Body temperature 97.2 [degF] 97.2 [degF] eCW1 ( [facility]) Systolic blood pressure 150 mm[Hg] 150 mm[Hg] e CW1 ([facility]) Diastolic blood pressure 86 mm[Hg] 86 mm[Hg] eCW1 ([facility]) Heart rate 60 /min 60 /min [facility] Body temperature 36.28 Emily 36.28 Emily [facility] Oxygen saturation in Arterial blood by Pulse oximetry 95 % 95 % [facility] Systolic blood pressure 138 mm[Hg] 138 mm[Hg] M EDENT ([facility]) Diastolic blood pressure 72 mm[Hg] 72 mm[Hg] MEDENT ([facility]) Body weight 220.00 [lb_av] 220.00 [lb_av] MEDEN T ([facility]) Heart rate 60 /min 60 /min MEDENT ([facility]) Systolic blood pressure 190 mm[Hg] 190 mm[Hg] [facility] Diastolic blood pressure 100 mm[Hg] 100 mm[Hg] [facility] Heart rate 66 /min 66 /min [facility] Body height 162.6 cm 162.6 cm [facility] Body weight 104.418 kg 104.418 kg [facility] Body mass index (BMI) [Ratio] 39.51 kg/m2 39.51 kg/m2 [facility] Oxygen saturation in Arterial blood by Pulse oximetry 96 % 96 % [facility] Body height 65 [in_i] 65 [in_i] MEDENT ([facility] 5'5" Body weight 220.00 [lb_av] 220.00 [lb_av] MEDEN T ([facility]) Body weight 99.792 kg 99.792 kg MEDENT ([facility]) Body mass index (BMI) [Ratio] 36.6 kg/m2 36.6 k g/m2 MEDENT ([facility]) Systolic blood pressure 159 mm[Hg] 159 mm[Hg] M EDENT ([facility]) Diastolic blood pressure 87 mm[Hg] 87 mm[Hg] MEDENT ([facility]) Heart rate 56 /min 56 /min [facility] ([facility] Body temperature 97.8 [degF] 97.8 [degF] MEDENT ([facility]) Systolic blood pressure 124 mm[Hg] 124 mm[Hg] EDENT ([facility]) Diastolic blood pressure 72 mm[Hg] 72 mm[Hg] MEDENT ([facility]) Body weight 220.00 [lb_av] 220.00 [lb_av] MEDEN T ([facility]) Body temperature 96.0 [degF] 96.0 [degF] MEDENT ([facility]) Body temperature 96.6 [degF] 96.6 [degF] MEDENT ([facility]) Oxygen saturation in Arterial blood by Pulse oximetry 96 % 96 % MED[facility] ([facility]) Body height 65 [in_i] 65 [in_i] MEDENT ([facility] 5'5" Body weight 220.00 [lb_av] 220.00 [lb_av] MEDEN T ([facility]) Body weight 99.792 kg 99.792 kg MED[facility] ([facility] Body mass index (BMI) [Ratio] 36.6 kg/m2 36.6 k g/m2 MEDENT ([facility]) Systolic blood pressure 167 mm[Hg] 167 mm[Hg] M EDENT ([facility]) Diastolic blood pressure 102 mm[Hg] 102 mm[Hg] MEDENT ([facility]) Heart rate 76 /min 76 /min MED[facility] ([facility]) Systolic blood pressure 146 mm[Hg] 146 mm[Hg] M EDENT ([facility]) Body temperature 97.3 [degF] 97.3 [degF] MED[facility] ([facility]) Diastolic blood pressure 85 mm[Hg] 85 mm[Hg] MED[facility] ([facility]) Heart rate 76 /min 76 /min [facility] ([facility] Body temperature 96.8 [degF] 96.8 [degF] MEDENT ([facility] ) Body temperature 97.3 [degF] 97.3 [degF] MED[facility] ([facility]) Heart rate 80 /min 80 /min [facility] ([facility] Body temperature 98.2 [degF] 98.2 [degF] [facility] ([facility]) Systolic blood pressure 157 mm[Hg] 157 mm[Hg] M EDENT ([facility]) Diastolic blood pressure 85 mm[Hg] 85 mm[Hg] [facility] ([facility]) Body height 64 [in_i] 64 [in_i] [facility] ([facility] 5'4" Body weight 230.00 [lb_av] 230.00 [lb_av] MEDEN T ([facility]) Body weight 104.328 kg 104.328 kg [facility] ([facility] Body mass index (BMI) [Ratio] 39.5 kg/m2 39.5 k g/m2 [facility] ([facility]) Patient Treatment Plan of Care Planned Activity Planned Date Details Description Data Source (s) Lidocaine 25 MG/ML / Prilocaine 25 MG/ML Topical Cream 06/06/2021 12:00:00 AM EDT eCW1 ([facility]) Lidocaine 25 MG/ML / Prilocaine 25 MG/ML Topical Cream 06/06/2021 12:00:00 AM EDT eCW1 ([facility]) Lidocaine 25 MG/ML / Prilocaine 25 MG/ML Topical Cream 06/06/2021 12:00:00 AM EDT eCW1 ([facility]) pregabalin 75 MG Oral Capsule 05/30/2021 12:00:00 AM EDT [facility] Chlorzoxazone 500 MG Oral Tablet 05/23/2021 12:00:00 AM EDT [facility] Losartan Potassium 25 MG Oral Tablet 03/07/2021 12:00:00 AM EDT [facility] Chlorzoxazone 500 MG Oral Tablet 01/01/2021 12:00:00 AM EDT [facility] Chlorzoxazone 500 MG Oral Tablet 10/04/2020 12:00:00 AM EST [facility] Hydroxyzine Hydrochloride 10 MG Oral Tablet 05/15/2020 12:00:00 AM EDT [facility] Losartan Potassium 50 MG Oral Tablet 04/23/2020 12:00:00 AM EDT [facility] 0.5 ML dulaglutide 1.5 MG/ML Auto-Injector [Trulicity] 11/14/2019 12:00:00 AM EDT [facility] Ciprofloxacin 0.003 MG/MG Ophthalmic Ointment [Ciloxan ] 05/27/2019 12:00:00 AM EDT [facility] 24 HR tolterodine tartrate 4 MG Extended Release Oral Capsule 01/09/2019 12:00:00 AM EDT [facility] Chlorzoxazone 500 MG Oral Tablet 01/03/2019 12:00:00 AM EDT [facility] Betamethasone 0.5 MG/ML Augmented Topical Cream 11/12/2018 12:00:00 AM EDT [facility]
[2021-07-11] MEDS ORDERED: HEPARIN SOD (PORCINE) 5000UNITS/ML 1ML VIAL/SYRINGE SQ ONE (07:35)
[2021-07-11] MEDS ORDERED: CLINDAMYCIN 900 MG in IV 1 EA IV ONE (07:35)
[2021-07-11] MEDS ORDERED: ROCURONIUM BROMIDE 50 MG/5 ML VIAL As Ordered ONE ×2 (08:56→11:27)
[2021-07-11] MEDS ORDERED: fentaNYL 250 MCG/5 ML INJECTION (J3010) As Ordered ONE (08:57)
[2021-07-11] MEDS ORDERED: MIDAZOLAM INJ 2MG/2ML VIAL (J2250 PER 1MG) As Ordered ONE (08:57)
[2021-07-11] MEDS ORDERED: LIDOCAINE 2% 100MG/5ML SDV (FOR ANES.) As Ordered ONE (08:57)
[2021-07-11] MEDS ORDERED: ONDANSETRON 4MG/2ML VIAL As Ordered ONE (08:57)
[2021-07-11] MEDS ORDERED: ETOMIDATE INJ 20MG/10ML VIAL As Ordered ONE (08:57)
[2021-07-11] MEDS ORDERED: dexameTHASONE 4 MG/ML 1ML VIAL (J1100 PER 1MG) As Ordered ONE (08:58)
[2021-07-11] MEDS ORDERED: BUPIVACAINE LIPOSOME/PF 1.3% 20ML VIAL (13.3MG/ML)(EXPAREL)(C9290 PER1MG) As Ordered ONE (09:30)
[2021-07-11] MEDS ORDERED: SEVOFLURANE INHAL SOLN 250 ML BTL As Ordered ONE (09:35)
[2021-07-11] MEDS ORDERED: SUGAMMADEX SODIUM 500 MG/5 ML VIAL (BRIDION) As Ordered ONE (11:13)
[2021-07-11] MEDS ORDERED: ACETAMINOPHEN 1000MG 100ML IV BTL (OFIRMEV) (J0131 PER 10MG) As Ordered ONE (11:13)
[2021-07-11] MEDS ORDERED: HYDROmorphone HCL 2 MG/ML 1ML VIAL As Ordered ONE (11:29)
[2021-07-11] MEDS: LR 1,000 ML IV SCH (13:40)
[2021-07-11] MEDS ORDERED: ONDANSETRON 4MG/2ML VIAL IV PRN ×2 (13:40→14:00)
[2021-07-11] MEDS ORDERED: HYDROMORPHONE HCL 0.5 MG/ 0.5 ML SYRINGE (J1170 PER 1) IV PRN (14:00)
[2021-07-11] MEDS ORDERED: oxyCODONE 5MG TAB PO PRN (14:00)
[2021-07-11] MEDS ORDERED: LR 1,000 ML IV SCH (14:00)
[2021-07-11] MEDS ORDERED: fentaNYL 100 MCG/2 ML INJECTION (J3010) IV PRN (14:00)
[2021-07-11] MEDS ORDERED: DEXTROSE 50% 50 ML SYRINGE IV PRN (14:10)
[2021-07-11] MEDS ORDERED: GLUCAGON INJ 1MG VIAL SC PRN (14:10)
[2021-07-11] MEDS ORDERED: GLUCOSE 4GM CHEW TABLET PO PRN (14:10)
--- NOTE | 2021-07-11 14:25 | CR.PDOC ---
General Date of Consultation: Jul 11, 2021 Consultation REASON FOR CONSULTATION/CHIEF COMPLAINT: Medical management HISTORY OF PRESENT ILLNESS: Patient is 76 years old female with past medical history of coronary artery diseases with history of TX in 2000, history of stroke in 1999 and 2000, chronic back and leg pain, hypertension, type 2 diabetes, acid reflux, arthritis presented to hospital for elective bilateral mastectomy secondary to breast carcinoma. When I saw the patient in the PACU patient was somnolent and was unable to provide any history. ALLERGIES: Please see below. HOME MEDICATIONS: Please see below. PAST MEDICAL HISTORY: coronary artery diseases with history of TX in 2000, history of stroke in 1999 and 2000, chronic back and leg pain, hypertension, type 2 diabetes, acid reflux, arthritis, hyperlipidemia Right breast carcinoma PAST SURGICAL HISTORY: Back surgery Hysterectomy, cataract removal, shoulder surgery, breast reduction 1982 FAMILY HISTORY: I personally reviewed family history and found not present SOCIAL HISTORY: Unable to obtain patient is somnolent REVIEW OF SYSTEMS: Unable to obtain patient is somnolent PHYSICAL EXAMINATION: VITAL SIGNS: Please see below. Objective: GENERAL APPEARANCE: Somnolent female HEENT: no scleral icterus, no JVD, EOMI CARDIOVASCULAR: S1S2 LUNGS: Diminished lung sounds bilaterally ABDOMEN: soft & not tender w palpation MUSCULOSKELETAL: no cyanosis, no swelling INTEGUMENT: no generalized pallor NEUROLOGICAL: cranial nerve function from 2-12 intact, follows commands, speech not dysarthric LABORATORY DATA: Please see below. ASSESSMENT/PLAN: Patient is 76 years old female with past medical history of coronary artery diseases with history of TX in 2000, history of stroke in 1999 and 2000, chronic back and leg pain, hypertension, type 2 diabetes, acid reflux, arthritis presented to hospital for elective bilateral mastectomy secondary to breast carcinoma. When I saw the patient in the PACU patient was somnolent and was unable to provide any history. Type 2 diabetes Diabetes diet Insulin sliding scale Coronary artery disease No any chest pain Continue aspirin, statin beta-blockers Hypertension Continue home meds blood pressure under control Stroke Patient was not on aspirin I started aspirin and statin GERD Continue PPI Status post bilateral mastectomy day 0 Surgical team follows care DVT prophylaxis with heparin 5000 twice daily Vital Signs/I&O Vital Signs Date Time Temp Pulse Resp B/P (MAP) Pulse Ox O2 Delivery O2 Flow Rate FiO2 07/11/21 14:00 81 16 155/78 (103) 94 Nasal Cannula 2.0 07/11/21 13:45 97.6 Laboratory Data Labs 24H Laboratory Tests 2 07/11/21 07:35: Bedside Glucose (Misc Panel) 128H Allergies Coded Allergies: latex (Verified Allergy, Intermediate, swelling and redness, 07/11/21) Penicillins (Verified Allergy, Unknown, as child-reaction unknown, 07/11/21) propofol (Verified Adverse Reaction, Severe, hypertensive crisis, lost bodily functions, 07/11/21) nitroglycerin (Verified Adverse Reaction, Intermediate, violent vomiting, 07/11/21) Sulfa (Sulfonamide Antibiotics) (Verified Adverse Reaction, Mild, headache, 07/11/21) Home Medications Scheduled Atenolol (Atenolol) 50 Mg Tablet, 50 MG PO DAILY, (Reported) Chlorzoxazone (Chlorzoxazone) 500 Mg Tablet, 500 MG PO PRN, (Reported) Hydralazine HCl (Hydralazine HCl) 25 Mg Tablet, 25 MG PO DAILY, (Reported) Losartan Potassium (Losartan Potassium) 25 Mg Tablet, 25 MG PO DAILY, (Reported) Lovastatin (Lovastatin) 20 Mg Tablet, 20 MG PO QPM, (Reported) Meloxicam (Meloxicam) 15 Mg Tablet, 15 MG PO DAILY, (Reported) Metformin HCl (Metformin HCl) 500 Mg Tablet, 500 MG PO DAILY, (Reported) Mirabegron (Myrbetriq) 50 Mg Tab.er.24h, 50 MG PO DAILY, (Reported) Potassium Chloride (Klor-Con M20) 20 Meq Tab.er.prt, 20 MEQ PO DAILY, (Reported) KAILA HUYNH DO Jul 11, 2021 14:25
[2021-07-11 15:06] VITALS: BP 143/89
[2021-07-11 15:40] VITALS: BP 143/90
[2021-07-11 16:41] VITALS: BP 139/78
--- NOTE | 2021-07-11 17:04 | REP ---
INDICATION: BILATERAL BREAST MASTECTOMY. COMPARISON: None. TECHNIQUE/RADIOTRACER AND DOSE: This procedure was performed by CARLOTTA Metzger, under the direct supervision of Dr. Umanzor. Images were reviewed with Dr. Umanzor prior to dictation. The risks and benefits of the procedure were explained to the patient and informed consent was obtained both orally and written. Directly prior to the start of the procedure, a formal timeout was done in the exam room. Using topical anesthetic and sterile technique 1.009 mCi of filtered Technetium-99m sulfur colloid was injected subdermally in 8 fractionated periareolar injections. FINDINGS: Images obtained 1 hour after injection show a dominant focus of uptake seen in the right axilla. IMPRESSION: Dominant focus of uptake is seen in the right axilla. <Electronically signed by Neli Valladares > 07/11/21 1040 <Electronically signed by Kirt Umanzor > 07/11/21 1700
[2021-07-11] MEDS: HumaLOG INSULIN (NovoLOG) PER UNIT SC SCH ×2 (17:30→20:56)
[2021-07-11 17:50] VITALS: BP 138/81
[2021-07-11] MEDS: traMADol 50 MG TAB PO PRN (18:38)
[2021-07-11 18:45] VITALS: BP 139/82
[2021-07-11] MEDS: MORPHINE 2 MG/ML 1ML VIAL (J2270) IV PRN (19:49)
[2021-07-11] MEDS: CLINDAMYCIN 900 MG in IV 1 EA IV SCH (19:49)
[2021-07-11 20:13] VITALS: BP 138/79
[2021-07-11] MEDS: SIMVASTATIN 20 MG TAB PO SCH (21:00)
[2021-07-11] MEDS: HEPARIN SOD (PORCINE) 5000UNITS/ML 1ML VIAL/SYRINGE SQ SCH (22:00)
[2021-07-11] MEDS ORDERED: OMEP-218 PO (22:29)
[2021-07-11] MEDS ORDERED: LOSA50TA88 PO (22:29)
[2021-07-11] MEDS ORDERED: DICL20GE TP (22:29)
[2021-07-11] MEDS ORDERED: HOME MED LIST COMPLETE! XX SCH (22:35)
[2021-07-12 01:47] VITALS: BP 130/84
[2021-07-12] MEDS: MORPHINE 2 MG/ML 1ML VIAL (J2270) IV PRN ×2 (02:56→10:04)
[2021-07-12] MEDS: CLINDAMYCIN 900 MG in IV 1 EA IV SCH (03:36)
[2021-07-12] MEDS: HEPARIN SOD (PORCINE) 5000UNITS/ML 1ML VIAL/SYRINGE SQ SCH ×3 (06:13→20:49)
[2021-07-12 06:15] VITALS: BP 124/80
[2021-07-12 06:24] LABS: BASO % 0.1 % (0.0-1.0); HEMATOCRIT 37.5 % (36.0-47.0); HEMOGLOBIN 12.1 g/dl (12.0-15.5); LYMPH # 0.9 10^3/uL (1.5-5.0); LYMPH % 11.4 % (24.0-44.0); MEAN CORPUSCULAR HEMOGLOBIN 31.8 pg (27.0-33.0); MEAN CORPUSCULAR HGB CONC 32.3 g/dl (32.0-36.5); MEAN CORPUSCULAR VOLUME 98.7 fl (80.0-96.0); MONO # 0.9 10^3/uL (0.0-0.8); MONO % 11.6 % (2.0-8.0); NEUTROPHILS # 6.2 10^3/uL (1.5-8.5); NEUTROPHILS % 76.4 % (36.0-66.0); PLATELET COUNT, AUTOMATED 200 10^3/uL (150-450); WHITE BLOOD COUNT 8.1 10^3/uL (4.0-10.0)
[2021-07-12 06:48] LABS: ALBUMIN 2.8 GM/DL (3.2-5.2); ALT/SGPT 27 U/L (12-78); BILIRUBIN,TOTAL 0.6 MG/DL (0.2-1.0); BLOOD UREA NITROGEN 15 MG/DL (7-18); CALCIUM LEVEL 8.5 MG/DL (8.8-10.2); CARBON DIOXIDE LEVEL 29 MEQ/L (21-32); CHLORIDE LEVEL 107 MEQ/L (98-107); CREATININE FOR GFR 0.67 MG/DL (0.55-1.30); GLOMERULAR FILTRATION RATE > 60.0 (>39); GLUCOSE, FASTING 125 MG/DL (70-100); MAGNESIUM LEVEL 2.1 MG/DL (1.8-2.4); POTASSIUM SERUM 3.9 MEQ/L (3.5-5.1); SODIUM LEVEL 142 MEQ/L (136-145); TOTAL PROTEIN 5.9 GM/DL (6.4-8.2)
[2021-07-12] MEDS: HumaLOG INSULIN (NovoLOG) PER UNIT SC SCH ×4 (07:30→20:35)
[2021-07-12] MEDS: atenoloL 50 MG TAB PO SCH (08:27)
[2021-07-12] MEDS: ASPIRIN 81MG ENTERIC TABLET PO SCH (08:27)
[2021-07-12] MEDS: **hydrALAZINE HCL** 25 MG TAB PO SCH (08:27)
[2021-07-12] MEDS: traMADol 50 MG TAB PO PRN ×2 (08:29→20:50)
[2021-07-12] MEDS: LOSARTAN 50MG TABLET PO SCH (08:30)
[2021-07-12] MEDS ORDERED: LOSARTAN 25 MG TAB PO SCH (09:00)
[2021-07-12] MEDS: LR 1,000 ML IV SCH (09:40)
[2021-07-12 10:00] VITALS: BP 122/66
[2021-07-12 14:00] VITALS: BP 117/63
--- NOTE | 2021-07-12 19:08 | IPNPDOC ---
Subjective General Date Seen: Jul 12, 2021 (7 am) Subject Chief Complaint/History The patient is a 76-year-old female admitted with a reason for visit of Right Breast Cancer. recovering well postop, still on INF and on O2 as of this AM. Pain controlled still with IV meds Current Medications Current Medications Current Medications Medications (Trade) Dose Ordered Sig/Yury Route PRN Reason Start Time Stop Time Status Last Admin Dose Admin Acetaminophen (Tylenol Tab) 650 mg Q6H PRN PO MILD PAIN (PS 1-4) 07/11/21 13:40 Aspirin (Ecotrin) 81 mg DAILY PO 07/12/21 09:00 07/12/21 08:27 Atenolol (Tenormin) 50 mg DAILY PO 07/12/21 09:00 07/12/21 08:27 Clindamycin Phosphate 900 mg/ IV Miscellaneous Supplies 50 ml @ 50 mls/hr Q8H IV 07/11/21 20:00 07/12/21 09:00 DC 07/12/21 03:36 Dextrose (Dextrose 50%) 25 ml ASDIRECTED PRN IV SEE LABEL COMMENTS 07/11/21 14:10 Fentanyl Citrate (Sublimaze) 25 mcg Q5MP PRN IV PAIN LEVEL 8-10 07/11/21 14:00 07/11/21 16:00 DC Glucagon (Glucagon) 1 mg ASDIRECTED PRN SC SEE LABEL COMMENTS 07/11/21 14:10 Glucose (Glucose) 16 GM ASDIRECTED PRN PO SEE LABEL COMMENTS 07/11/21 14:10 Heparin Sodium (Porcine) (Heparin) 5,000 units Q8H SQ 07/11/21 22:00 07/12/21 14:02 Home Med (Home Med List Complete!) ASDIRECTED XX 07/11/21 22:35 07/11/21 22:36 DC Hydralazine HCl (Apresoline) 25 mg DAILY PO 07/12/21 09:00 07/12/21 08:27 Hydromorphone HCl (Dilaudid) 0.2 mg Q5MP PRN IV PAIN LEVEL 5-7 07/11/21 14:00 07/11/21 16:00 DC Insulin Human Lispro (HumaLOG INSULIN) SEE PROTOCOL TABLE AC SC 07/11/21 17:30 07/12/21 14:01 Insulin Human Lispro (HumaLOG INSULIN) SEE PROTOCOL TABLE QHS SC 07/11/21 21:00 Lactated Ringer's 1,000 ml @ 50 mls/hr Q20H IV 07/11/21 13:40 Lactated Ringer's 1,000 ml @ 100 mls/hr Q10H IV 07/11/21 14:00 07/11/21 16:00 DC Losartan Potassium (Cozaar) 25 mg DAILY PO 07/12/21 09:00 07/11/21 22:46 DC Losartan Potassium (Cozaar) 50 mg DAILY PO 07/12/21 09:00 07/12/21 08:30 Morphine Sulfate (Morphine Sulfate Inj) 2 mg Q3H PRN IV SEVERE PAIN (PS 8-10) 07/11/21 13:40 07/12/21 10:04 Ondansetron HCl (ZOFRAN INJection) 4 mg Q4H PRN IV NAUSEA OR VOMITING 07/11/21 13:40 Ondansetron HCl (ZOFRAN INJection) 4 mg Q4HP PRN IV NAUSEA OR VOMITING 07/11/21 14:00 07/11/21 16:00 DC Oxycodone HCl (Roxicodone, Oxyir) 5 mg ASDIRECTED PRN PO PAIN LEVEL 1-4 07/11/21 14:00 07/11/21 16:00 DC Simvastatin (Zocor) 20 mg QPM PO 07/11/21 21:00 Tramadol HCl (Ultram) 50 mg Q6HP PRN PO MODERATE PAIN (PS 5-7) 07/11/21 13:40 07/12/21 08:29 Allergies Coded Allergies: latex (Verified Allergy, Intermediate, swelling and redness, 07/11/21) Penicillins (Verified Allergy, Unknown, as child-reaction unknown, 07/11/21) propofol (Verified Adverse Reaction, Severe, hypertensive crisis, lost bodily functions, 07/11/21) nitroglycerin (Verified Adverse Reaction, Intermediate, violent vomiting, 07/11/21) Sulfa (Sulfonamide Antibiotics) (Verified Adverse Reaction, Mild, headache, 07/11/21) Objective Physical Examination Examination GENERAL APPEARANCE:Patient seen, laying in bed, awake, alert, and oriented. BREAST: b/l surgically absent. mastectomy flaps are viable, no palpable hematoma, b/l JPs in place with s/s drainage LUNGS: on O2 via NC, not in respiratory distress HEART: no tachycardia ABDOMEN: Abdomen is soft EXTREMITIES: No gross deformity Vital Signs Vital Signs Date Time Temp Pulse Resp B/P (MAP) Pulse Ox O2 Delivery O2 Flow Rate FiO2 07/12/21 14:00 97.1 64 16 117/63 (81) 93 Room Air 07/11/21 21:00 2.0 I&Os I&O- Last 24 Hours up to 6 AM 07/12/21 06:00 Intake Total 900 ml Output Total 500 ml Balance 400 ml Laboratory Data Labs 24H Laboratory Tests 2 07/11/21 20:16: Bedside Glucose (Misc Panel) 174H 07/12/21 05:56: Immature Granulocyte % (Auto) 0.5, Neutrophils (%) (Auto) 76.4H, Lymphocytes (%) (Auto) 11.4L, Monocytes (%) (Auto) 11.6H, Eosinophils (%) (Auto) 0.0, Basophils (%) (Auto) 0.1, Neutrophils # (Auto) 6.2, Lymphocytes # (Auto) 0.9L, Monocytes # (Auto) 0.9H, Eosinophils # (Auto) 0.0, Basophils # (Auto) 0.0, Nucleated Red Blood Cells % (auto) 0.0, Anion Gap 6L, Glomerular Filtration Rate > 60.0, Calcium Level 8.5L, Magnesium Level 2.1, Total Bilirubin 0.6, Aspartate Amino Transf (AST/SGOT) 14, Alanine Aminotransferase (ALT/SGPT) 27, Alkaline Phosphatase 51, Total Protein 5.9L, Albumin 2.8L, Albumin/Globulin Ratio 0.9L 07/12/21 11:34: Bedside Glucose (Misc Panel) 125H 07/12/21 16:57: Bedside Glucose (Misc Panel) 105 CBC/BMP Laboratory Tests 07/12/21 05:56 Impression 76 y o F w R Breast Ca, s/p b/l mastectomy w R SLNbx POD1 - wean of O2 - stop IVF when PO intake - monitor drain output, - drain teaching per Nursing staff - DIABETIC DIET - blood sugar checks per protocol - med management per Medical team, greatly appreciate help - per IM recs, will keep one more day in obs, if doing well tomorrow will plan for dx w HOME HEALTH Plan / VTE VTE Prophylaxis Ordered?: Yes RAMY CA DO Jul 12, 2021 19:08
[2021-07-12 20:14] VITALS: BP 142/78
[2021-07-12] MEDS: SIMVASTATIN 20 MG TAB PO SCH (20:49)
[2021-07-13 04:35] VITALS: BP 143/78
[2021-07-13] MEDS: traMADol 50 MG TAB PO PRN ×3 (04:45→22:06)
[2021-07-13] MEDS: HEPARIN SOD (PORCINE) 5000UNITS/ML 1ML VIAL/SYRINGE SQ SCH ×3 (04:46→21:11)
[2021-07-13] MEDS: HumaLOG INSULIN (NovoLOG) PER UNIT SC SCH ×4 (07:30→21:00)
[2021-07-13 08:29] LABS: BASO % 0.6 % (0.0-1.0); EOS # 0.1 10^3/uL (0.0-0.5); EOS % 0.8 % (0.0-3.0); HEMATOCRIT 37.6 % (36.0-47.0); HEMOGLOBIN 11.9 g/dl (12.0-15.5); LYMPH # 0.9 10^3/uL (1.5-5.0); LYMPH % 14.8 % (24.0-44.0); MEAN CORPUSCULAR HEMOGLOBIN 31.9 pg (27.0-33.0); MEAN CORPUSCULAR HGB CONC 31.6 g/dl (32.0-36.5); MEAN CORPUSCULAR VOLUME 100.8 fl (80.0-96.0); MONO # 0.8 10^3/uL (0.0-0.8); NEUTROPHILS # 4.5 10^3/uL (1.5-8.5); NEUTROPHILS % 71.5 % (36.0-66.0); PLATELET COUNT, AUTOMATED 179 10^3/uL (150-450); RED BLOOD COUNT 3.73 10^6/uL (4.00-5.40); WHITE BLOOD COUNT 6.4 10^3/uL (4.0-10.0)
[2021-07-13 08:58] LABS: ALBUMIN 2.8 GM/DL (3.2-5.2); ALT/SGPT 25 U/L (12-78); BILIRUBIN,TOTAL 0.7 MG/DL (0.2-1.0); BLOOD UREA NITROGEN 24 MG/DL (7-18); CALCIUM LEVEL 8.6 MG/DL (8.8-10.2); CARBON DIOXIDE LEVEL 30 MEQ/L (21-32); CHLORIDE LEVEL 109 MEQ/L (98-107); GLOMERULAR FILTRATION RATE > 60.0 (>39); GLUCOSE, FASTING 107 MG/DL (70-100); MAGNESIUM LEVEL 2.3 MG/DL (1.8-2.4); POTASSIUM SERUM 3.7 MEQ/L (3.5-5.1); SODIUM LEVEL 142 MEQ/L (136-145); TOTAL PROTEIN 5.7 GM/DL (6.4-8.2)
[2021-07-13] MEDS: atenoloL 50 MG TAB PO SCH (09:17)
[2021-07-13] MEDS: **hydrALAZINE HCL** 25 MG TAB PO SCH (09:17)
[2021-07-13] MEDS: ASPIRIN 81MG ENTERIC TABLET PO SCH (09:17)
[2021-07-13] MEDS: LOSARTAN 50MG TABLET PO SCH (09:17)
[2021-07-13] MEDS: ACETAMINOPHEN TAB 650MG DOSE (2X325MG) PO PRN ×2 (09:18→21:09)
[2021-07-13 14:00] VITALS: BP 137/72
--- NOTE | 2021-07-13 15:07 | IPNPDOC ---
Subjective General Date Seen: Jul 13, 2021 (2 pm) Subject Chief Complaint/History The patient is a 76-year-old female admitted with a reason for visit of Right Breast Cancer, s/p b/l mastectomy w R SLNbx POD2 She is off IVF. Pain controlled. Ambulating to bathroom, tolerates diet. At time of exam patient is on room air saturating at 88 %. During exam she dropped to 85 % Current Medications Current Medications Current Medications Medications (Trade) Dose Ordered Sig/Yury Route PRN Reason Start Time Stop Time Status Last Admin Dose Admin Acetaminophen (Tylenol Tab) 650 mg Q6H PRN PO MILD PAIN (PS 1-4) 07/11/21 13:40 07/13/21 09:18 Aspirin (Ecotrin) 81 mg DAILY PO 07/12/21 09:00 07/13/21 09:17 Atenolol (Tenormin) 50 mg DAILY PO 07/12/21 09:00 07/13/21 09:17 Clindamycin Phosphate 900 mg/ IV Miscellaneous Supplies 50 ml @ 50 mls/hr Q8H IV 07/11/21 20:00 07/12/21 09:00 DC 07/12/21 03:36 Dextrose (Dextrose 50%) 25 ml ASDIRECTED PRN IV SEE LABEL COMMENTS 07/11/21 14:10 Fentanyl Citrate (Sublimaze) 25 mcg Q5MP PRN IV PAIN LEVEL 8-10 07/11/21 14:00 07/11/21 16:00 DC Glucagon (Glucagon) 1 mg ASDIRECTED PRN SC SEE LABEL COMMENTS 07/11/21 14:10 Glucose (Glucose) 16 GM ASDIRECTED PRN PO SEE LABEL COMMENTS 07/11/21 14:10 Heparin Sodium (Porcine) (Heparin) 5,000 units Q8H SQ 07/11/21 22:00 07/13/21 04:46 Home Med (Home Med List Complete!) ASDIRECTED XX 07/11/21 22:35 07/11/21 22:36 DC Hydralazine HCl (Apresoline) 25 mg DAILY PO 07/12/21 09:00 07/13/21 09:17 Hydromorphone HCl (Dilaudid) 0.2 mg Q5MP PRN IV PAIN LEVEL 5-7 07/11/21 14:00 07/11/21 16:00 DC Insulin Human Lispro (HumaLOG INSULIN) SEE PROTOCOL TABLE AC SC 07/11/21 17:30 07/13/21 13:00 Insulin Human Lispro (HumaLOG INSULIN) SEE PROTOCOL TABLE QHS SC 07/11/21 21:00 Lactated Ringer's 1,000 ml @ 50 mls/hr Q20H IV 07/11/21 13:40 07/12/21 19:44 DC Lactated Ringer's 1,000 ml @ 100 mls/hr Q10H IV 07/11/21 14:00 07/11/21 16:00 DC Losartan Potassium (Cozaar) 25 mg DAILY PO 07/12/21 09:00 07/11/21 22:46 DC Losartan Potassium (Cozaar) 50 mg DAILY PO 07/12/21 09:00 07/13/21 09:17 Morphine Sulfate (Morphine Sulfate Inj) 2 mg Q3H PRN IV SEVERE PAIN (PS 8-10) 07/11/21 13:40 07/12/21 10:04 Ondansetron HCl (ZOFRAN INJection) 4 mg Q4H PRN IV NAUSEA OR VOMITING 07/11/21 13:40 Ondansetron HCl (ZOFRAN INJection) 4 mg Q4HP PRN IV NAUSEA OR VOMITING 07/11/21 14:00 07/11/21 16:00 DC Oxycodone HCl (Roxicodone, Oxyir) 5 mg ASDIRECTED PRN PO PAIN LEVEL 1-4 07/11/21 14:00 07/11/21 16:00 DC Simvastatin (Zocor) 20 mg QPM PO 07/11/21 21:00 07/12/21 20:49 Tramadol HCl (Ultram) 50 mg Q6HP PRN PO MODERATE PAIN (PS 5-7) 07/11/21 13:40 07/13/21 12:58 Allergies Coded Allergies: latex (Verified Allergy, Intermediate, swelling and redness, 07/11/21) Penicillins (Verified Allergy, Unknown, as child-reaction unknown, 07/11/21) propofol (Verified Adverse Reaction, Severe, hypertensive crisis, lost bodily functions, 07/11/21) nitroglycerin (Verified Adverse Reaction, Intermediate, violent vomiting, 07/11/21) Sulfa (Sulfonamide Antibiotics) (Verified Adverse Reaction, Mild, headache, 07/11/21) Objective Physical Examination Examination GENERAL APPEARANCE:Patient seen, laying in bed, awake, alert, and oriented. Comfortable, in no acute distress. BREAST: b/l breasts are surgically absent, mastectomy flaps are viable, no palpable hematoma, 2 JPs on R w s/s drainage and 1JP on L w s/s drainage LUNGS: saturating at 88% on RA, she dropped to 85% after wound examination HEART: no tachycardia EXTREMITIES: there is increasing ecchymosis on the L arm- significantly increased since yesterday - marked with the marker today and wrapped with HAYLEE wrap Vital Signs Vital Signs Date Time Temp Pulse Resp B/P (MAP) Pulse Ox O2 Delivery O2 Flow Rate FiO2 07/13/21 13:30 16 07/13/21 09:17 143/78 07/13/21 09:17 68 07/13/21 04:35 98.5 92 Nasal Cannula 2.0 I&Os I&O- Last 24 Hours up to 6 AM 07/13/21 06:00 Intake Total 1620 ml Output Total 900 ml Balance 720 ml Laboratory Data Labs 24H Laboratory Tests 2 07/12/21 16:57: Bedside Glucose (Misc Panel) 105 07/12/21 20:24: Bedside Glucose (Misc Panel) 162H 07/13/21 07:45: Immature Granulocyte % (Auto) 0.3, Neutrophils (%) (Auto) 71.5H, Lymphocytes (%) (Auto) 14.8L, Monocytes (%) (Auto) 12.0H, Eosinophils (%) (Auto) 0.8, Basophils (%) (Auto) 0.6, Neutrophils # (Auto) 4.5, Lymphocytes # (Auto) 0.9L, Monocytes # (Auto) 0.8, Eosinophils # (Auto) 0.1, Basophils # (Auto) 0.0, Nucleated Red Blood Cells % (auto) 0.0, Anion Gap 3L, Glomerular Filtration Rate > 60.0, Calcium Level 8.6L, Magnesium Level 2.3, Total Bilirubin 0.7, Aspartate Amino Transf (AST/SGOT) 14, Alanine Aminotransferase (ALT/SGPT) 25, Alkaline Phosphatase 50, Total Protein 5.7L, Albumin 2.8L, Albumin/Globulin Ratio 1.0L 07/13/21 08:20: Bedside Glucose (Misc Panel) 101 07/13/21 11:42: Bedside Glucose (Misc Panel) 137H CBC/BMP Laboratory Tests 07/13/21 07:45 Impression 76 y o F w R breast Ca, s/p b/l mastectomy w R SLNBx POD2 - CXR today to evaluate low sats (88-85% on room air) - encourage Incentive spirometry - pain control - diabetic diet - PT/OT - dvt ppx - will re-evaluate patient tomorrow for possible d/c w home health, not ready for d/c today due to low 02 sats - case discussed with Nursing staff and with the Medicine Team Plan / VTE VTE Prophylaxis Ordered?: Yes RAMY CA DO Jul 13, 2021 15:07
--- NOTE | 2021-07-13 15:29 | REP ---
INDICATION: hypoxia. COMPARISON: No comparison chest x-ray. TECHNIQUE: PA and lateral views. FINDINGS: Heart is mildly enlarged. Cardiothoracic ratio is 54.4%. Pulmonary vasculature is not increased. There is no evidence of pleural effusion or pulmonary edema. No infiltrate is seen. The aorta is tortuous. There are degenerative changes in the thoracic spine.. Surgical drains are noted in the anterior extra thoracic soft tissues bilaterally. There is also an orthopedic surgical anchor in the humeral head on the left. IMPRESSION: Cardiomegaly. Otherwise no active cardiopulmonary disease. <Electronically signed by Sami Ricks > 07/13/21 [id number]
[2021-07-13 15:56] LABS: NT-PRO BNP 108 PG/ML (<450)
[2021-07-13] MEDS ORDERED: FUROSEMIDE 40MG/4ML VIAL (J1940) IV SCH (16:00)
--- NOTE | 2021-07-13 16:46 | ROOPDOC ---
[facility] Report Of Operation Report of Operation DATE OF PROCEDURE: 07/11/21 PREPROCEDURE DIAGNOSES: right breast cancer POSTPROCEDURE DIAGNOSES: right breast cancer PROCEDURE PERFORMED: bilateral simple mastectomy and right sentinel lymph node biopsy SURGEON: Dr Felipe Dang [employer] ADJUSTER: Dr. Maurilio Burnette ANESTHESIA: general ESTIMATED BLOOD LOSS: Approximately 100 mL. COMPLICATIONS: none FINDINGS: R mastectomy 1421g, left mastectomy 1582g, right axillary lymph nodes identified PROCEDURE NOTE: INDICATIONS: Ms. Malinda Rajan is a 76-year-old lady who was found to have a suspicious l esion in the right breast on her screening mammogram. Biopsy of the suspicious lesion was done and showed IDC, ER+IL+, Her2 negative. We discussed surgical options and patient opted for bilateral simple mastectomy without reconstruction. I explained to the patient that because she has a right breast invasive breast cancer we also can to evaluate her lymph nodes via sentinel lymph node biopsy. We have discussed an alternative Choosing Wisely Campaign as well. Risks and possible complications of surgical procedure including bleeding, infection and injury to surrounding structures were explained to the patient and she wished to proceed. Consent was signed. Subcutaneous heparin 5000 units was given to patient in the preop area. Lymphoscintigraphy was reviewed preoperatively and the tracer was found in the right axilla. DETAILS: Patient was taken to the operating room and placed supine on the operating room table. Pillow was placed under her knees. Foam was placed under her heels. A sign in was called stating patients name, date of and the procedure to be done. Preoperative antibiotics were infused. Smooth induction of general an esthesia was done. Patients hands were extended on arm rests. Care was taken not to over extend patients arms. Wallace catheter was placed. Sequential compression devices were placed and assured to function correctly. Patients bilateral breasts and axillas were prepped and draped in the usual fashion. Neoprobe was used to binta the site of maximal signal in the right axilla. The right breast possible tumor extension was marked on the skin. Appropriate time out was done and patients name, date of , and the procedure to be done were confirmed. Procedure was started with right breast mastectomy. The incision was made along the previously marked border to achieve the scar at the inframammary fold. Subcutaneous flaps were developed using electrocautery dissection. Dissection was carried toward the inframammary fold inferiorly, toward sternum medially, toward inferior aspect of clavicle superiorly and toward the axilla laterally. Doctor Paleys assistance was critical in allowing fast progression of the case and decreasing anesthesia time. Breast tissue was dissected from the muscle posteriorly and pectoralis fascia was taken with the specimen. The dissection was carried all the way to the [place] making sure that axilla is not entered prematurely. Breast specimen was marked for orientation with short stitch marking superior edge of mastectomy and long stitch marking lateral edge of mastectomy. Double stitch was placed at the site of cancer. The specimen was weighted and weight of 1421 grams was reported. The specimen was then placed in formaldehyde, and passed to pathology. Mastectomy cavity was irrigated and hemostasis was achieved. Doctor Paleys assistance was critical in achieving adequate hemostasis and progressing the case safely. Next, our attention was turned toward the right axilla which was accessed from the mastectomy site. Clavipectoral fascia was opened over the site of maximum Neoprobe signal. Area of high signal was identified in deep axilla. [place] lymph node #1 was identified and 10 second ex-vivo count was 10129. Second sentinel lymph node was identified and the 10 second ex-vivo count was 4150. Up on closer examination of the second excised sentinel lymph node, it was noted that it is a cluster of three separate nodes. Specimens were labeled appropriately and sent to pathology. Axilla was explored for presence of any additional lymph nodes and none were identified. 10 second count of the background was 153. Doctor Paleys assistance with identification of sentinel lymph nodes was again critical to avoid injury to surrounding nerves. The axilla was irrigated and hemostasis was achieved. Next, clavipectoral fascia was closed with interrupted 3-0 Vicryl Stitches. At this point, two 15 [place] Laci drains were placed into the mastectomy cavity and into axilla respectively through separate stab incisions and secured at the skin with stitches. Next, pectoral and serratus plane blocks on the right side were also done with Exparel. Deep dermal sutures were placed with 0 Vicryl to approximate mastectomy site edges. Dermis was closed with 3-0 Vicryl. Skin was closed with V-lock Monocryl stitch. Surgical glue was applied to the top of the incision. Prineo skin closing system dressing was applied next to the incision. At this time, our attention was turned toward the left breast. The incision was made along the previously marked border to achieve the scar at the inframammary fold. Subcutaneous flaps were developed using electrocautery dissection. Dissection was carried toward the inframammary fold inferiorly, toward sternum medially, toward inferior aspect of clavicle superiorly and toward the axilla laterally. Doctor Paleys assistance was critical in allowing fast progression of the case and decreasing anesthesia time. Breast tissue was dissected from the muscle posteriorly and pectoralis fascia was taken with the specimen. The dissection was carried all the way to the [place] making sure that axilla is not entered prematurely. Breast specimen was marked for orientation with s hort stitch marking superior edge of mastectomy and long stitch marking lateral edge of mastectomy. The specimen was weighted and weight of 1582 grams was reported. The specimen was then placed in formaldehyde, and passed to pathology. Mastectomy cavity was irrigated and hemostasis was achieved. Doctor Paleys assistance was critical in achieving adequate hemostasis and progressing the case safely. At this point, one 15 [place] Laci drains were placed into the mastectomy cavity and into axilla through separate stab incisions and secured at the skin with stitches. Next, pectoral and serratus plane blocks on the left side were also done with Exparel. Deep dermal sutures were placed with 0 Vicryl to approximate mastectomy site edges. Dermis was closed with 3-0 Vicryl. Skin was V-lock Monocryl stitch. Surgical glue was applied to the top of the incision. Prineo skin closing system dressing was applied next to the incision. Surgical gauze was placed over the incisions and surgical bra was placed. HAYLEE wrap was placed over the bra to compress the surgical area. Final instruments and sponge count were correct. Patient emerged from general anesthesia without any problems. Wallace was removed. Patient tolerated procedure well and was taken to recovery unit in stable condition. RAMY DANG DO Jul 13, 2021 16:46
[2021-07-13] MEDS: SIMVASTATIN 20 MG TAB PO SCH (21:08)
[2021-07-13 22:00] VITALS: BP 132/60
[2021-07-14] MEDS: ACETAMINOPHEN TAB 650MG DOSE (2X325MG) PO PRN ×2 (02:40→09:33)
[2021-07-14 06:00] VITALS: BP 132/74
[2021-07-14] MEDS ORDERED: TORSEMIDE 10 MG TABLET PO SCH (06:00)
[2021-07-14] MEDS: traMADol 50 MG TAB PO PRN ×2 (06:12→14:14)
[2021-07-14] MEDS: HEPARIN SOD (PORCINE) 5000UNITS/ML 1ML VIAL/SYRINGE SQ SCH ×2 (06:13→13:22)
[2021-07-14 07:24] LABS: BASO # 0.1 10^3/uL (0.0-0.2); BASO % 1.2 % (0.0-1.0); EOS # 0.1 10^3/uL (0.0-0.5); EOS % 1.9 % (0.0-3.0); HEMATOCRIT 37.8 % (36.0-47.0); HEMOGLOBIN 12.1 g/dl (12.0-15.5); LYMPH # 1.3 10^3/uL (1.5-5.0); LYMPH % 27.4 % (24.0-44.0); MEAN CORPUSCULAR HEMOGLOBIN 31.6 pg (27.0-33.0); MEAN CORPUSCULAR VOLUME 98.7 fl (80.0-96.0); MONO # 0.8 10^3/uL (0.0-0.8); MONO % 15.6 % (2.0-8.0); NEUTROPHILS # 2.6 10^3/uL (1.5-8.5); NEUTROPHILS % 53.5 % (36.0-66.0); PLATELET COUNT, AUTOMATED 165 10^3/uL (150-450); RED BLOOD COUNT 3.83 10^6/uL (4.00-5.40); WHITE BLOOD COUNT 4.9 10^3/uL (4.0-10.0)
[2021-07-14] MEDS: HumaLOG INSULIN (NovoLOG) PER UNIT SC SCH ×2 (07:30→11:46)
[2021-07-14 07:46] LABS: ALBUMIN 2.8 GM/DL (3.2-5.2); ALT/SGPT 27 U/L (12-78); BILIRUBIN,TOTAL 0.8 MG/DL (0.2-1.0); BLOOD UREA NITROGEN 24 MG/DL (7-18); CALCIUM LEVEL 8.7 MG/DL (8.8-10.2); CARBON DIOXIDE LEVEL 30 MEQ/L (21-32); CHLORIDE LEVEL 110 MEQ/L (98-107); GLOMERULAR FILTRATION RATE > 60.0 (>39); GLUCOSE, FASTING 104 MG/DL (70-100); MAGNESIUM LEVEL 2.2 MG/DL (1.8-2.4); POTASSIUM SERUM 3.4 MEQ/L (3.5-5.1); SODIUM LEVEL 144 MEQ/L (136-145)
[2021-07-14] MEDS ORDERED: POTASSIUM CHLORIDE 10MEQ SR TABLET PO ONE (08:15)
[2021-07-14] MEDS: LOSARTAN 50MG TABLET PO SCH (08:33)
[2021-07-14] MEDS: atenoloL 50 MG TAB PO SCH (08:33)
[2021-07-14] MEDS: ASPIRIN 81MG ENTERIC TABLET PO SCH (08:33)
[2021-07-14 08:34] VITALS: BP 132/74
[2021-07-14] MEDS: **hydrALAZINE HCL** 25 MG TAB PO SCH (08:34)
[2021-07-14] MEDS ORDERED: MIRALAX *UNIT DOSE* 17GM PACKET PO PRN (09:00)
[2021-07-14] MEDS ORDERED: ULTR50TA8 PO (11:13)
--- NOTE | 2021-07-14 11:25 | IPNPDOC ---
Subjective General Date Seen: Jul 14, 2021 Subject Chief Complaint/History The patient is a 76-year-old female admitted with a reason for visit of Right Breast Cancer, s/p b/l mastectomy with R SLNbx POD 3 desaturated yesterday to 85% CXR done yesterday - cardiomegaly Lasix given by internal med team Current Medications Current Medications Current Medications Medications (Trade) Dose Ordered Sig/Yury Route PRN Reason Start Time Stop Time Status Last Admin Dose Admin Acetaminophen (Tylenol Tab) 650 mg Q6H PRN PO MILD PAIN (PS 1-4) 07/11/21 13:40 07/14/21 09:33 Aspirin (Ecotrin) 81 mg DAILY PO 07/12/21 09:00 07/14/21 08:33 Atenolol (Tenormin) 50 mg DAILY PO 07/12/21 09:00 07/14/21 08:33 Clindamycin Phosphate 900 mg/ IV Miscellaneous Supplies 50 ml @ 50 mls/hr Q8H IV 07/11/21 20:00 07/12/21 09:00 DC 07/12/21 03:36 Dextrose (Dextrose 50%) 25 ml ASDIRECTED PRN IV SEE LABEL COMMENTS 07/11/21 14:10 Fentanyl Citrate (Sublimaze) 25 mcg Q5MP PRN IV PAIN LEVEL 8-10 07/11/21 14:00 07/11/21 16:00 DC Furosemide (LASIX injection) 40 mg Q8H IV 07/13/21 16:00 07/13/21 17:16 DC 07/13/21 16:59 Glucagon (Glucagon) 1 mg ASDIRECTED PRN SC SEE LABEL COMMENTS 07/11/21 14:10 Glucose (Glucose) 16 GM ASDIRECTED PRN PO SEE LABEL COMMENTS 07/11/21 14:10 Heparin Sodium (Porcine) (Heparin) 5,000 units Q8H SQ 07/11/21 22:00 07/14/21 06:13 Home Med (Home Med List Complete!) ASDIRECTED XX 07/11/21 22:35 07/11/21 22:36 DC Hydralazine HCl (Apresoline) 25 mg DAILY PO 07/12/21 09:00 07/14/21 08:34 Hydromorphone HCl (Dilaudid) 0.2 mg Q5MP PRN IV PAIN LEVEL 5-7 07/11/21 14:00 07/11/21 16:00 DC Insulin Human Lispro (HumaLOG INSULIN) SEE PROTOCOL TABLE AC SC 07/11/21 17:30 07/13/21 17:02 Insulin Human Lispro (HumaLOG INSULIN) SEE PROTOCOL TABLE QHS SC 07/11/21 21:00 Lactated Ringer's 1,000 ml @ 50 mls/hr Q20H IV 07/11/21 13:40 07/12/21 19:44 DC Lactated Ringer's 1,000 ml @ 100 mls/hr Q10H IV 07/11/21 14:00 07/11/21 16:00 DC Losartan Potassium (Cozaar) 25 mg DAILY PO 07/12/21 09:00 07/11/21 22:46 DC Losartan Potassium (Cozaar) 50 mg DAILY PO 07/12/21 09:00 07/14/21 08:33 Morphine Sulfate (Morphine Sulfate Inj) 2 mg Q3H PRN IV SEVERE PAIN (PS 8-10) 07/11/21 13:40 07/12/21 10:04 Ondansetron HCl (ZOFRAN INJection) 4 mg Q4H PRN IV NAUSEA OR VOMITING 07/11/21 13:40 Ondansetron HCl (ZOFRAN INJection) 4 mg Q4HP PRN IV NAUSEA OR VOMITING 07/11/21 14:00 07/11/21 16:00 DC Oxycodone HCl (Roxicodone, Oxyir) 5 mg ASDIRECTED PRN PO PAIN LEVEL 1-4 07/11/21 14:00 07/11/21 16:00 DC Polyethylene Glycol (Miralax) 1 pkt DAILYPRN PRN PO CONSTIPATION 07/14/21 09:00 07/14/21 09:33 Simvastatin (Zocor) 20 mg QPM PO 07/11/21 21:00 07/13/21 21:08 Torsemide (Demadex) 10 mg Q12H PO 07/14/21 06:00 07/14/21 06:12 Tramadol HCl (Ultram) 50 mg Q6HP PRN PO MODERATE PAIN (PS 5-7) 07/11/21 13:40 07/14/21 06:12 Allergies Coded Allergies: latex (Verified Allergy, Intermediate, swelling and redness, 07/11/21) Penicillins (Verified Allergy, Unknown, as child-reaction unknown, 07/11/21) propofol (Verified Adverse Reaction, Severe, hypertensive crisis, lost bodily functions, 07/11/21) nitroglycerin (Verified Adverse Reaction, Intermediate, violent vomiting, 07/11/21) Sulfa (Sulfonamide Antibiotics) (Verified Adverse Reaction, Mild, headache, 07/11/21) Objective Physical Examination Examination GENERAL APPEARANCE:Patient seen, laying in bed, awake, alert, and oriented. BREAST: b/l breast surgically absent, no hematoma, mastectomy flaps viable LUNGS: saturating at 92% at RA HEART: no tachycardia EXTREMITIES: RUE ecchymosis, are is soft, no hematoma Vital Signs Vital Signs Date Time Temp Pulse Resp B/P (MAP) Pulse Ox O2 Delivery O2 Flow Rate FiO2 07/14/21 08:34 132/74 07/14/21 08:33 74 07/14/21 06:42 17 07/14/21 06:00 97.4 92 Room Air 07/13/21 04:35 2.0 I&Os I&O- Last 24 Hours up to 6 AM 07/14/21 06:00 Intake Total 800 ml Output Total 660 ml Balance 140 ml Laboratory Data Labs 24H Laboratory Tests 2 07/13/21 11:42: Bedside Glucose (Misc Panel) 137H 07/13/21 16:21: Bedside Glucose (Misc Panel) 132H 07/14/21 06:56: Immature Granulocyte % (Auto) 0.4, Neutrophils (%) (Auto) 53.5, Lymphocytes (%) (Auto) 27.4, Monocytes (%) (Auto) 15.6H, Eosinophils (%) (Auto) 1.9, Basophils (%) (Auto) 1.2H, Neutrophils # (Auto) 2.6, Lymphocytes # (Auto) 1.3L, Monocytes # (Auto) 0.8, Eosinophils # (Auto) 0.1, Basophils # (Auto) 0.1, Nucleated Red Blood Cells % (auto) 0.0, Anion Gap 4L, Glomerular Filtration Rate > 60.0, Calcium Level 8.7L, Magnesium Level 2.2, Total Bilirubin 0.8, Aspartate Amino Transf (AST/SGOT) 19, Alanine Aminotransferase (ALT/SGPT) 27, Alkaline Phosphatase 52, Total Protein 6.0L, Albumin 2.8L, Albumin/Globulin Ratio 0.9L CBC/BMP Laboratory Tests 07/14/21 06:56 Impression 76-year-old female admitted with a reason for visit of Right Breast Cancer, s/p b/l mastectomy with R SLNbx POD 3 - stable for discharge today, pls arrange for home health at discharge - Rx sent to pharmacy - f/u in clinic on 07/19/21 - drain teaching per nursing staff - plan discussed with the patient and nursing staff Plan / VTE VTE Prophylaxis Ordered?: Yes RAMY CA DO Jul 14, 2021 11:25
== END 2021-07-14 14:25 | disposition home health service (06) ==
LOC: M SDC 06:35 → M MS5PR 15:00 → M SDC 07-14 14:25
PROVIDERS: ATTEND Surgery
DX: C50.911 Malignant neoplasm of unspecified site of right female breast (principal); I25.10 Atherosclerotic heart disease of native coronary artery without angina pectoris; I25.2 Old myocardial infarction; I10 Essential (primary) hypertension; E78.5 Hyperlipidemia, unspecified; E11.9 Type 2 diabetes mellitus without complications; Z91.040 Latex allergy status; K21.9 Gastro-esophageal reflux disease without esophagitis; Z86.718 Personal history of other venous thrombosis and embolism; Z79.84 Long term (current) use of oral hypoglycemic drugs; Z79.899 Other long term (current) drug therapy; Z88.0 Allergy status to penicillin; Z88.2 Allergy status to sulfonamides; Z88.8 Allergy status to other drugs, medicaments and biological substances
CPT/HCPCS: 19303; 36415; 38525; 71046; 78195; 80053; 83735; 83880; 85025; 86850; 86900; 86901; 88307; 88309; 88342; 96365; 96366; 96375; 96376; 97161; 97165; 97530; 97535; A9541; C9290; J0131; J1100; J1170; J1644; J1940; J2250; J2270; J2405; J3010

== ENCOUNTER → 2021-08-07 | Outpatient (CLI) | payer MEDICARE ==
[~2021-08-07] MED LIST changes: +ANAS1TAB2 PO; +DICL20GE TP; +LOSA50TA88 PO; +OMEP-218 PO; +ULTR50TA8 PO
--- NOTE | 2021-08-07 16:42 | DEXAMM ---
INDICATION: BREAST CANCER ANASTROZOLE. COMPARISON: None. TECHNIQUE: Bone density was measured using dual-energy x-ray absorptiometry (DEXA). FINDINGS: AP SPINE L1-L4 BMD 1.389 g/cm2 Young Adult T-Score 1.4 Age Matched Z-Score 3.2. LT FEMUR, TOTAL BMD 1.000 g/cm2 Young Adult T-Score -0.1 Age Matched Z-Score 1.8. LT NECK BMD 0.914 g/cm2 Young Adult T-Score -0.9 Age Matched Z-Score 1.2. RT FEMUR, TOTAL BMD 0.969 g/cm2 Young Adult T-Score -0.3 Age Matched Z-Score 1.6. RT NECK BMD 0.793 g/cm2 Young Adult T-Score -1.8 Age Matched Z-Score 0.3. IMPRESSION: There is normal bone density of the spine. There is normal bone density of the left hip. There is low bone density of the right hip. FOLLOW-UP: Recommendation for the next bone density exam: 2 years. <Electronically signed by Kirt Umanzor > 08/07/21 [id number]
== END ==
LOC: M WHC 13:46
PROVIDERS: ATTEND Specialist
DX: C50.919 Malignant neoplasm of unspecified site of unspecified female breast (principal); Z92.21 Personal history of antineoplastic chemotherapy; M85.851 Other specified disorders of bone density and structure, right thigh

== ENCOUNTER → 2022-02-06 | Outpatient (CLI) | payer MEDICARE ==
[~2022-02-06] MED LIST changes: +ARIM1TAB5 PO; +EXEM25TA PO; +HYDR-3911 PO; +LOSA25TA13 PO; -LOSA25TA14 PO; +LOSA50TA28 PO; -LOSA50TA88 PO; +OMEP-173 PO; -OMEP-218 PO
== END ==
LOC: M LABSMTC 10:48
PROVIDERS: ATTEND Anesthesiology
DX: Z01.818 Encounter for other preprocedural examination (principal); Z11.52 Encounter for screening for COVID-19

== ENCOUNTER 2022-02-11 08:22 | Observation (INO) | payer MEDICARE ==
[~2022-02-11] VITALS: Ht 165.1 cm; Wt 99.8 kg
[2022-02-11] VITALS (7 sets, daily range): BP systolic 119–141; BP diastolic 62–94
[~2022-02-11 08:22] MED LIST changes: +LIDOCAINE 2% 100MG/5ML SDV (FOR ANES.) As Ordered ONE; +MIDAZOLAM INJ 2MG/2ML VIAL (J2250 PER 1MG) As Ordered ONE; +ONDANSETRON 4MG/2ML VIAL As Ordered ONE; +ROCURONIUM BROMIDE 50 MG/5 ML VIAL As Ordered ONE; +dexameTHASONE 4 MG/ML 1ML VIAL (J1100 PER 1MG) As Ordered ONE; +fentaNYL 100 MCG/2 ML INJECTION As Ordered ONE; +propofoL 200 MG/20 ML VIAL As Ordered ONE
[2022-02-11] MEDS ORDERED: HEPARIN SOD (PORCINE) 5000UNITS/ML 1ML VIAL/SYRINGE SQ ONE (08:25)
[2022-02-11] MEDS ORDERED: LR 1,000 ML IV SCH ×2 (08:35→11:50)
[2022-02-11] MEDS ORDERED: CLINDAMYCIN 900 MG in IV 1 EA IV ONE (09:40)
[2022-02-11] MEDS ORDERED: KETAMINE HCL 200 MG/20 ML VIAL As Ordered ONE ×2 (09:44→13:24)
[2022-02-11] MEDS ORDERED: GENTAMICIN SULF 80MG/2ML VIAL As Ordered ONE (10:04)
[2022-02-11] MEDS ORDERED: ETOMIDATE INJ 20MG/10ML VIAL As Ordered ONE (10:06)
[2022-02-11] MEDS ORDERED: BUPIVACAINE HCL 0.25% 30ML VIAL As Ordered ONE (10:09)
[2022-02-11] MEDS ORDERED: BUPIVACAINE LIPOSOME/PF 1.3% 20ML VIAL (13.3MG/ML)(EXPAREL) As Ordered ONE (10:10)
[2022-02-11] MEDS ORDERED: propofoL 200 MG/20 ML VIAL As Ordered ONE (10:58)
[2022-02-11] MEDS ORDERED: ePHEDrine SULFATE 25 MG/5 ML(5MG/ML) SYRINGE As Ordered ONE (11:07)
[2022-02-11] MEDS ORDERED: PHENYLephrine 500MCG 5ML (100MCG/ML) SYRINGE As Ordered ONE (11:07)
[2022-02-11] MEDS ORDERED: SUGAMMADEX SODIUM 500 MG/5 ML VIAL (BRIDION) As Ordered ONE (11:20)
[2022-02-11] MEDS ORDERED: fentaNYL 100 MCG/2 ML INJECTION As Ordered ONE (11:45)
[2022-02-11] MEDS ORDERED: HYDROMORPHONE HCL 0.5 MG/ 0.5 ML SYRINGE (J1170 PER 1) IV PRN (11:50)
[2022-02-11] MEDS ORDERED: oxyCODONE 5MG TAB PO PRN (11:50)
[2022-02-11] MEDS ORDERED: fentaNYL 100 MCG/2 ML INJECTION IV PRN (11:50)
[2022-02-11] MEDS ORDERED: ONDANSETRON 4MG/2ML VIAL IV PRN (11:50)
[2022-02-11] MEDS ORDERED: GLUCAGON INJ 1MG VIAL SC PRN (12:30)
[2022-02-11] MEDS ORDERED: amLODIPine 5 MG TAB PO ONE (12:30)
[2022-02-11] MEDS ORDERED: GLUCOSE 4GM CHEW TABLET PO PRN (12:30)
[2022-02-11] MEDS ORDERED: DEXTROSE 50% 50 ML SYRINGE IV PRN (12:30)
[2022-02-11] MEDS ORDERED: HYDR25TA PO (13:21)
[2022-02-11] MEDS ORDERED: ACETAMINOPHEN 1000MG 100ML IV BTL (OFIRMEV) (J0131 PER 10MG) As Ordered ONE (13:23)
[2022-02-11] MEDS ORDERED: HOME MED LIST COMPLETE! XX SCH (13:25)
[2022-02-11] MEDS ORDERED: med note (13:57)
[2022-02-11] MEDS ORDERED: METOCLOPRAMIDE INJ 10MG/2ML VIAL (J2765 PER 1) IV PRN (14:15)
[2022-02-11 14:40] LABS: HEMATOCRIT 44.4 % (36.0-47.0); HEMOGLOBIN 14.3 g/dl (12.0-15.5); MEAN CORPUSCULAR HEMOGLOBIN 31.8 pg (27.0-33.0); MEAN CORPUSCULAR HGB CONC 32.2 g/dl (32.0-36.5); MEAN CORPUSCULAR VOLUME 98.7 fl (80.0-96.0); PLATELET COUNT, AUTOMATED 182 10^3/uL (150-450); WHITE BLOOD COUNT 5.7 10^3/uL (4.0-10.0)
[2022-02-11 14:58] LABS: BLOOD UREA NITROGEN 10 MG/DL (7-18); CALCIUM LEVEL 8.8 MG/DL (8.8-10.2); CARBON DIOXIDE LEVEL 28 MEQ/L (21-32); CHLORIDE LEVEL 109 MEQ/L (98-107); CREATININE FOR GFR 0.75 MG/DL (0.55-1.30); GLOMERULAR FILTRATION RATE > 60.0 (>39); GLUCOSE, FASTING 143 MG/DL (70-100); PHOSPHORUS LEVEL 2.7 MG/DL (2.5-4.9); POTASSIUM SERUM 4.1 MEQ/L (3.5-5.1); SODIUM LEVEL 141 MEQ/L (136-145)
[2022-02-11] MEDS: atenoloL 50 MG TAB PO SCH (15:18)
[2022-02-11] MEDS: OMEPRAZOLE 20MG CAP PO SCH (15:19)
[2022-02-11] MEDS: LOSARTAN 50MG TABLET PO SCH (16:32)
[2022-02-11] MEDS: LR 1,000 ML IV SCH (16:33)
[2022-02-11] MEDS: INSULIN LISPRO (NovoLOG) PER UNIT SC SCH (16:48)
[2022-02-11] MEDS ORDERED: ONDANSETRON 4MG/2ML VIAL IV ONE (18:20)
[2022-02-11] MEDS: **hydrALAZINE HCL** 25 MG TAB PO SCH (20:15)
[2022-02-11] MEDS ORDERED: SIMVASTATIN 20 MG TAB PO SCH (21:00)
[2022-02-11] MEDS ORDERED: INSULIN LISPRO (NovoLOG) PER UNIT SC SCH (21:00)
[2022-02-12] MEDS: LR 1,000 ML IV SCH ×2 (01:30→05:02)
[2022-02-12 03:30] VITALS: BP 141/73
[2022-02-12 06:34] LABS: HEMATOCRIT 38.4 % (36.0-47.0); HEMOGLOBIN 12.6 g/dl (12.0-15.5); MEAN CORPUSCULAR HEMOGLOBIN 32.5 pg (27.0-33.0); MEAN CORPUSCULAR HGB CONC 32.8 g/dl (32.0-36.5); PLATELET COUNT, AUTOMATED 179 10^3/uL (150-450); RED BLOOD COUNT 3.88 10^6/uL (4.00-5.40); WHITE BLOOD COUNT 7.2 10^3/uL (4.0-10.0)
[2022-02-12 07:18] LABS: BLOOD UREA NITROGEN 10 MG/DL (7-18); CALCIUM LEVEL 9.3 MG/DL (8.8-10.2); CARBON DIOXIDE LEVEL 29 MEQ/L (21-32); CHLORIDE LEVEL 109 MEQ/L (98-107); CREATININE FOR GFR 0.67 MG/DL (0.55-1.30); GLOMERULAR FILTRATION RATE > 60.0 (>39); GLUCOSE, FASTING 114 MG/DL (70-100); MAGNESIUM LEVEL 2.2 MG/DL (1.8-2.4); PHOSPHORUS LEVEL 3.5 MG/DL (2.5-4.9); POTASSIUM SERUM 3.9 MEQ/L (3.5-5.1); SODIUM LEVEL 145 MEQ/L (136-145)
[2022-02-12] MEDS: INSULIN LISPRO (NovoLOG) PER UNIT SC SCH ×2 (08:23→12:24)
[2022-02-12 08:24] VITALS: BP 136/73
[2022-02-12] MEDS: LOSARTAN 50MG TABLET PO SCH (08:24)
[2022-02-12] MEDS: atenoloL 50 MG TAB PO SCH (08:24)
[2022-02-12] MEDS: OMEPRAZOLE 20MG CAP PO SCH (08:24)
[2022-02-12] MEDS: **hydrALAZINE HCL** 25 MG TAB PO SCH (08:25)
[2022-02-12] MEDS ORDERED: amLODIPine 5 MG TAB PO SCH (09:00)
[2022-02-12] MEDS ORDERED: AMLO1TAB24 PO (09:38)
== END 2022-02-12 12:55 | disposition home or self-care (01) ==
LOC: M SDC 08:22 → M MSPAV 08:23
PROVIDERS: ADMIT Internal Medicine; ATTEND Internal Medicine
DX: L90.6 Striae atrophicae (principal); I25.10 Atherosclerotic heart disease of native coronary artery without angina pectoris; I25.2 Old myocardial infarction; Z86.73 Personal history of transient ischemic attack (TIA), and cerebral infarction without residual deficits; I10 Essential (primary) hypertension; E11.9 Type 2 diabetes mellitus without complications; K21.9 Gastro-esophageal reflux disease without esophagitis; E78.5 Hyperlipidemia, unspecified; Z85.3 Personal history of malignant neoplasm of breast; Z79.84 Long term (current) use of oral hypoglycemic drugs; Z79.899 Other long term (current) drug therapy; Z88.0 Allergy status to penicillin; Z88.2 Allergy status to sulfonamides; Z88.8 Allergy status to other drugs, medicaments and biological substances; Z91.040 Latex allergy status
CPT/HCPCS: 13101; 13102; 36415; 80048; 83735; 84100; 85027; 88302; 96360; 96361; C9290; G0378; J0131; J1100; J1580; J1644; J1815; J2250; J2370; J2405; J2765; J3010

== ENCOUNTER → 2022-07-31 | Outpatient (REF) | payer MEDICARE ==
[~2022-07-31] MED LIST changes: +AMLO1TAB24 PO; +CEPH750C PO; +HYDR25TA PO; -LIDOCAINE 2% 100MG/5ML SDV (FOR ANES.) As Ordered ONE; -MIDAZOLAM INJ 2MG/2ML VIAL (J2250 PER 1MG) As Ordered ONE; -ONDANSETRON 4MG/2ML VIAL As Ordered ONE; -ROCURONIUM BROMIDE 50 MG/5 ML VIAL As Ordered ONE; -dexameTHASONE 4 MG/ML 1ML VIAL (J1100 PER 1MG) As Ordered ONE; -fentaNYL 100 MCG/2 ML INJECTION As Ordered ONE; +med note; -propofoL 200 MG/20 ML VIAL As Ordered ONE
[2022-07-31 19:30] LABS: HEMOGLOBIN A1c 6.4 % (4.0-6.0)
[2022-08-01 12:08] LABS: ANTINUCLEAR ANTIBODIES DIRECT Negative (Negative)
== END ==
LOC: M SFHCWOUN 13:07
PROVIDERS: ATTEND Surgery
DX: I77.6 Arteritis, unspecified (principal); L08.9 Local infection of the skin and subcutaneous tissue, unspecified

== ENCOUNTER → 2022-09-15 | Outpatient (REF) | payer MEDICARE | LOC: M SFHCDERM 13:47 | PROVIDERS: ATTEND Physician Assistant | DX: I87.2 Venous insufficiency (chronic) (peripheral) (principal) ==